=== PATIENT | male | born 1965 | race Caucasian/White ===

== ENCOUNTER 2016-12-13 07:25 | Emergency (ER) | payer OTHER ==
[2016-12-13 07:41] VITALS: BP 160/104
[2016-12-13] MEDS ORDERED: Sodium Chloride 0.9% 10 ML Syringe FLUSH PRN (07:52)
[2016-12-13] MEDS ORDERED: HYDROmorphone 1 MG/ML Syringe IM ONE (07:52)
--- NOTE | 2016-12-13 08:12 | EDM.PDOC ---
ED HPI GENERAL MEDICAL PROBLEM - General Chief Complaint: Abdominal Pain Stated Complaint: LT ABD PAIN Time Seen by Provider: 12/13/16 07:45 Source of Information: Reports: Patient History Limitations: Reports: No limitations - History of Present Illness INITIAL COMMENTS - FREE TEXT/NARRATIVE: 51-year-old male with left-sided upper abdominal pain for the last 2 days after falling. He tripped and fell forward sustaining a bruise to his left upper arm , a scratch across his right forehead but most seriously took a blunt blow to the left upper anterior abdomen by an iron leg of furniture. He now has very intense pain from the left upper abdomen radiating to the left back. There is some pain with breathing but intense spasm cramp-like pain with any movement. He's been taking ibuprofen without much relief. No nausea or vomiting. No fevers or chills. No urinary changes. Duration: Day(s): (2) Location: Reports: abdomen Quality: Reports: Sharp, Stabbing Severity: moderate Worsens with: Reports: Breathing, Movement Context: Reports: Trauma Associated Symptoms: Reports: chest pain. Denies: diaphoresis, fever/chills, headaches, loss of appetite, malaise, nausea/vomiting, shortness of breath Left Upper Abdominal Pain Score (Numeric/FACES): 9 - Related Data Allergies Allergy/AdvReac Type Severity Reaction Status Date / Time No Known Allergies Allergy Verified 12/13/16 07:39 Home Meds: Home Meds Atenolol [Tenormin] 25 mg PO DAILY 05/02/15 [History] Multivitamin with Minerals [Multiple Vitamin] 1 tab PO DAILY 05/02/15 [History] Omeprazole 40 mg PO DAILY 05/02/15 [History] Aspirin [Halfprin] 81 mg PO DAILY 10/11/16 [History] Nitroglycerin 1 tab SL ASDIRECTED 10/11/16 [History] atorvaSTATin [Lipitor] 40 mg PO DAILY 10/11/16 [History] Past Medical History Cardiovascular History: Reports: Other (see below) Other Cardiovascular History: 40% blockage Respiratory History: Reports: Sleep apnea Other Respiratory History: Cpap Gastrointestinal History: Reports: GERD Musculoskeletal History: Reports: Other (see below) Other Musculoskeletal History: DDD Psychiatric History: Reports: Depression - Infectious Disease History Infectious Disease History: Reports: Chicken pox, Mumps - Past Surgical History Other HEENT Surgeries/Procedures: uvulaplasty GI Surgical History: Reports: Bariatric procedure Social & Family History - Tobacco Use Smoking Status *Q: Never Smoker Second Hand Smoke Exposure: No - Caffeine Use Caffeine Use: Reports: Coffee, Soda - Alcohol Use Days Per Week of Alcohol Use: 2 Number of Drinks Per Day: 1 Total Drinks Per Week: 2 - Recreational Drug Use Recreational Drug Use: No ED ROS GENERAL - Review of Systems Review Of Systems: See Below Constitutional: Reports: decreased appetite. Denies: fever, chills, malaise HEENT: Reports: No symptoms Respiratory: Reports: pleuritic chest pain Cardiovascular: Denies: Chest pain, Palpitations GI/Abdominal: Reports: Abdominal pain. Denies: Diarrhea, Nausea, Vomiting : Reports: no symptoms Musculoskeletal: Reports: other (Bruise on his left upper arm) Skin: Reports: other (Superficial scratch on the right forehead) Neurological: Denies: dizziness, headache Psychiatric: Reports: No symptoms ED EXAM, GENERAL - Physical Exam Exam: See Below Exam Limited By: No limitations General Appearance: alert, mild distress Eye Exam: bilateral eye: normal inspection Head: other (Small superficial scratch on the right forehead) Respiratory/Chest: no respiratory distress, lungs clear Cardiovascular: regular rate, rhythm GI/Abdominal: soft, guarding, tender (Intensely painful to palpation in the left upper quadrant, guarding) Neurological: alert, oriented Psychiatric: normal affect, normal mood Skin Exam: Other (Bruise on the left upper arm) Course - Vital Signs Last Recorded V/S: Last Vital Signs Temp 94.6 F L 12/13/16 07:36 Pulse 66 12/13/16 07:36 Resp 18 12/13/16 07:36 BP 160/104 H 12/13/16 07:36 Pulse Ox 97 12/13/16 07:36 - Orders/Labs/Meds Orders: Active Orders 24 hr Category Date Time Status Saline Lock Insert [OM.PC] Routine Oth 12/13/16 07:52 Ordered Labs: Laboratory Tests 12/13/16 12/13/16 Range/Units 07:58 07:58 WBC 7.8 (4.5-11.0) K/uL RBC 5.00 (4.30-5.90) M/uL Hgb 15.4 H (12.0-15.0) g/dL Hct 45.5 (40.0-54.0) % MCV 91 (80-98) fL MCH 31 (27-31) pg MCHC 34 (32-36) % Plt Count 183 (150-400) K/uL Neut % (Auto) 55 (36-66) % Lymph % (Auto) 33 (24-44) % Wells % (Auto) 7 H (2-6) % Eos % (Auto) 4 (2-4) % Baso % (Auto) 1 (0-1) % Sodium 140 (140-148) mmol/L Potassium 3.6 (3.6-5.2) mmol/L Chloride 102 (100-108) mmol/L Carbon Dioxide 27 (21-32) mmol/L Anion Gap 11.4 (5.0-14.0) mmol/L BUN 16 (7-18) mg/dL Creatinine 1.0 (0.8-1.3) mg/dL Est Cr Clr Drug Dosing 97.66 mL/min Estimated GFR (MDRD) > 60 (>60) Glucose 102 (74-106) mg/dL Calcium 8.8 (8.5-10.1) mg/dL Meds: Medications Discontinued Medications Generic Name Dose Route Start Last Admin Trade Name Freq PRN Reason Stop Dose Admin Hydromorphone HCl 1 mg 12/13/16 07:52 12/13/16 08:06 Dilaudid IM 12/13/16 07:53 1 mg ONETIME ONE Administration Sodium Chloride 85 mls @ 3 mls/sec 12/13/16 08:30 12/13/16 08:39 Normal Saline IV 3 mls/sec ASDIRECTED REYNOLD Administration Iopamidol 150 ml 12/13/16 08:28 12/13/16 08:39 Isovue-300 (61%) IV 12/14/16 08:29 150 ml . DIRECTED PRN Administration RADIOLOGY EXAM Sodium Chloride 10 ml 12/13/16 07:52 12/13/16 08:06 Saline Flush FLUSH 10 ml ASDIRECTED PRN Administration Keep Vein Open - Re-Assessments/Exams Free Text/Narrative Re-Assessment/Exam: 12/13/16 08:11 Saline lock was placed, CBC and BMP were obtained. Pending creatinine, and a CT of the upper abdomen is planned. Patient was given 1 mg of Dilaudid IM 12/13/16 08:56 CBC and BMP were normal, hemoglobin is actually mildly elevated and white count was normal. A CT was then obtained of the abdomen and pelvis which showed no evidence of trauma. Patient improved after the Dilaudid and will be discharged with some hydrocodone for pain control and can recheck next week if not improving satisfactorily. Departure - Departure Time of Disposition: :17 Disposition: Home, Self-Care 01 Condition: good Clinical Impression: Contusion of abdominal wall, initial encounter Qualifiers: Encounter type: initial encounter Qualified Code(s): S30.1XXA - Contusion of abdominal wall, initial encounter Instructions: Contusion, [id number], Blunt Abdominal Trauma Referrals: Jennifer De Leon MD [Primary Care Provider] - Forms: ED Department Discharge Care Plan Goals: Increase activity as tolerated. Use pain medications as prescribed. Return any time if worsening or concerns, or consider rechecking next week if not improving satisfactorily. - My Orders Last 24 Hours: My Active Orders 12/13/16 07:52 Saline Lock Insert [OM.PC] Routine - Assessment/Plan Last 24 Hours: My Active Orders 12/13/16 07:52 Saline Lock Insert [OM.PC] Routine
[2016-12-13] MEDS ORDERED: Iopamidol 612 MG/ML 150 ML Bottle IV PRN (08:28)
--- NOTE | 2016-12-13 08:54 | CT ---
Abdomen pelvis CT. History: Abdominal trauma. Left upper quadrant pain. Technique: IV contrast was administered followed by axial imaging from the lung bases extending thro ugh the abdomen and pelvis. Coronal images were reconstructed. Total DLP: 1165. Findings: Limited evaluation of the lower lung granados demonstrate no abnormalities. The visualized r ibs are intact. There is mild fatty infiltration throughout the liver. The gallbladder is surgically absent. There a re postoperative findings consistent with a Arlen-en-Y gastric bypass. No complications are evident. There is no free air or free fluid. There is no large or small bowel distention. Impression: 1. No acute posttraumatic findings.
== END 2016-12-13 09:10 | disposition home or self-care (01) ==
LOC: JP.ED 07:25
DX: S30.1XXA Contusion of abdominal wall, initial encounter (principal); S40.022A Contusion of left upper arm, initial encounter; K21.9 Gastro-esophageal reflux disease without esophagitis; F32.9 Major depressive disorder, single episode, unspecified; Z79.82 Long term (current) use of aspirin; Z79.899 Other long term (current) drug therapy; Z98.84 Bariatric surgery status; W18.09XA Striking against other object with subsequent fall, initial encounter
CPT/HCPCS: 36415; 74177; 80048; 85025; 96372; 99284; J1170; J7030; J7050

== ENCOUNTER 2017-01-17 21:02 | Emergency (ER) | payer OTHER ==
--- NOTE | 2017-01-17 22:47 | EDM.PDOC ---
[id number] 4d eval Time Seen by Provider: 01/17/17 21:16 Source: Reports: Patient Exam Limitations: Reports: No limitations - History of Present Illness INITIAL COMMENTS - FREE TEXT/NARRATIVE: History of present illness: [51-year-old male presents complaining of depression in some suicidal ideation. He was very tearful and distraught and in the process of initiating any conversation with him he mentions his brother that he had been talking to. I then suggested that I talked to his brother which I did over the phone for about 20 minutes. This was very helpful and based on my conversation with his brother I believe that he is a candidate for a 72 hour hold. He is feeling helpless and hopeless and depressed and does have firearms in his home. According to his brother his has undiagnosed paranoid schizophrenia which stresses their relationship. He has had no prior suicidal attempts but his brother is very concerned that he may "do something stupid" given how depressed she is feeling at the current time. His is accusing him of being an alcoholic and drug and I believe threatening to leave him because of this. He has never been through treatment before. The patient's brother is not sure about the alcohol and with an that's an issue for his brother but he definitely feels that the stressor that is causing the most trouble in his brothers her life right now is his with her paranoid thinking and in his words paranoid schizophrenia.] Review of systems: As per history of present illness and below otherwise all systems reviewed and negative. Past medical history: As per history of present illness and as reviewed below otherwise noncontributory. Surgical history: As per history of present illness and as reviewed below otherwise noncontributory. Social history: No reported history of drug or alcohol abuse. Family history: As per history of present illness and as reviewed below otherwise noncontributory. Physical exam: HEENT: Atraumatic, normocephalic, pupils reactive, negative for conjunctival pallor or scleral icterus, mucous membranes moist, throat clear, neck supple, nontender, trachea midline. Lungs: Clear to auscultation, breath sounds equal bilaterally, chest nontender. Heart: S1S2, regular, negative for clicks, rubs, or JVD. Abdomen: Soft, nondistended, nontender. Negative for masses or hepatosplenomegaly. Negative for costovertebral tenderness. He is overweight Pelvis: Stable nontender. Genitourinary: Deferred. Rectal: Deferred. Extremities: Atraumatic, negative for cords or calf pain. Neurovascular unremarkable. Neuro: Awake, alert, oriented. Cranial nerves II through XII unremarkable. Cerebellum unremarkable. Motor and sensory unremarkable throughout. Exam nonfocal. Diagnostics: [CBC complete metabolic panel UA and urine drug screen and serum alcohol were done initial alcohol was 337 but it's been coming down.] Therapeutics: [] Impression: [Based on my assessment and discussion with this gentleman his brother I believe he is at higher risk for suicide attempt he in spite of his denial of being suicidal] Plan: [We've made arrangements for him to be transferred to the [facility] in [place] Dr. Ring acccepting. ] Definitive disposition and diagnosis as appropriate pending reevaluation and review of above. - Related Data Allergies Allergy/AdvReac Type Severity Reaction Status Date / Time No Known Allergies Allergy Verified 01/17/17 21:50 Home Medications: Home Meds Atenolol [Tenormin] 25 mg PO DAILY 05/02/15 [History] Multivitamin with Minerals [Multiple Vitamin] 1 tab PO DAILY 05/02/15 [History] Omeprazole 40 mg PO DAILY 05/02/15 [History] Aspirin [Halfprin] 81 mg PO DAILY 10/11/16 [History] Nitroglycerin 1 tab SL ASDIRECTED 10/11/16 [History] atorvaSTATin [Lipitor] 40 mg PO DAILY 10/11/16 [History] denies pain Pain Score (Numeric/FACES): 0 Past Medical History HEENT History: Reports: Impaired vision Cardiovascular History: Reports: Other (see below) Other Cardiovascular History: 40% blockage Respiratory History: Reports: Sleep apnea Other Respiratory History: Cpap Gastrointestinal History: Reports: GERD Musculoskeletal History: Reports: Other (see below) Other Musculoskeletal History: DDD Psychiatric History: Reports: Depression - Infectious Disease History Infectious Disease History: Reports: Chicken pox - Past Surgical History HEENT Surgical History: Reports: Other (see below) Other HEENT Surgeries/Procedures: uvulaplasty GI Surgical History: Reports: Bariatric procedure Social & Family History - Tobacco Use Smoking Status *Q: Never Smoker Second Hand Smoke Exposure: No - Caffeine Use Caffeine Use: Reports: Coffee - Alcohol Use Days Per Week of Alcohol Use: 3 Number of Drinks Per Day: 1 Total Drinks Per Week: 3 Date of Last Drink: 01/17/17 Time of Last Drink: 18:00 - Recreational Drug Use Recreational Drug Use: No ED ROS GENERAL - Review of Systems Review Of Systems: ROS reveals no pertinent complaints other than HPI. ED EXAM, BEHAVIORAL HEALTH - Physical Exam Exam: See Below COURSE, BEHAVIORAL HEALTH COMP - Course Vital Signs: Last Vital Signs Temp 37.4 C 01/17/17 21:23 Pulse 92 01/17/17 22:20 Resp 20 01/17/17 22:20 BP 151/98 H 01/17/17 22:20 Pulse Ox 93 L 01/17/17 22:20 Orders, Labs, Meds: Laboratory Tests 01/17/17 01/17/17 01/17/17 Range/Units 21:46 21:46 21:47 WBC 6.6 (4.5-11.0) K/uL RBC 4.87 (4.30-5.90) M/uL Hgb 14.8 (12.0-15.0) g/dL Hct 43.8 (40.0-54.0) % MCV 90 (80-98) fL MCH 30 (27-31) pg MCHC 34 (32-36) % Plt Count 165 (150-400) K/uL Neut % (Auto) 49 (36-66) % Lymph % (Auto) 43 (24-44) % Villalba % (Auto) 7 H (2-6) % Eos % (Auto) 0 L (2-4) % Baso % (Auto) 1 (0-1) % Sodium 149 H (140-148) mmol/L Potassium 3.9 (3.6-5.2) mmol/L Chloride 110 H (100-108) mmol/L Carbon Dioxide 25 (21-32) mmol/L Anion Gap 17.9 H (5.0-14.0) mmol/L BUN 20 H (7-18) mg/dL Creatinine 1.0 (0.8-1.3) mg/dL Est Cr Clr Drug Dosing 97.19 mL/min Estimated GFR (MDRD) > 60 (>60) Glucose 132 H (74-106) mg/dL Calcium 7.8 L (8.5-10.1) mg/dL Total Bilirubin 0.3 D (0.2-1.0) mg/dL AST 55 H (15-37) U/L ALT 71 (12-78) U/L Alkaline Phosphatase 80 (46-116) U/L Total Protein 7.6 (6.4-8.2) g/dL Albumin 3.9 (3.4-5.0) g/dL Globulin 3.7 H (2.3-3.5) g/dL Albumin/Globulin Ratio 1.1 L (1.2-2.2) TSH, Ultra Sensitive 1.117 (0.358-3.740) uIU/mL Urine Color Urine Appearance Urine pH (4.5-8.0) Ur Specific [place] (1.008-1.030) Urine Protein (NEGATIVE) mg/dL Urine Glucose (UA) (NEGATIVE) mg/dL Urine Ketones (NEGATIVE) mg/dL Urine Occult Blood (NEGATIVE) Urine Nitrite (NEGAITVE) Urine Bilirubin (NEGATIVE) Urine Urobilinogen (NORMAL) mg/dL Ur Leukocyte Esterase (NEGATIVE) Urine RBC (0-5) Urine WBC (0-5) Ur Epithelial Cells Amorphous Sediment Urine Bacteria Urine Mucus Salicylates (2.0-20.0) mg/dL Urine Opiates Screen (NEGATIVE) Ur Oxycodone Screen (NEGATIVE) Urine Methadone Screen (NEGATIVE) Ur Propoxyphene Screen (NEGATIVE) Acetaminophen 0.0 L (10.0-30.0) ug/mL Ur Barbiturates Screen (NEGATIVE) Ur Tricyclics Screen (NEGATIVE) Ur Phencyclidine Scrn (NEGATIVE) Ur Amphetamine Screen (NEGATIVE) U Methamphetamines Scrn (NEGATIVE) Urine MDMA Screen (NEGATIVE) U Benzodiazepines Scrn (NEGATIVE) U Cocaine Metab Screen (NEGATIVE) U Marijuana (THC) Screen (NEGATIVE) Ethyl Alcohol mg/dL 01/17/17 01/17/17 01/17/17 Range/Units 21:47 21:47 22:24 WBC (4.5-11.0) K/uL RBC (4.30-5.90) M/uL Hgb (12.0-15.0) g/dL Hct (40.0-54.0) % MCV (80-98) fL MCH (27-31) pg MCHC (32-36) % Plt Count (150-400) K/uL Neut % (Auto) (36-66) % Lymph % (Auto) (24-44) % Villalba % (Auto) (2-6) % Eos % (Auto) (2-4) % Baso % (Auto) (0-1) % Sodium (140-148) mmol/L Potassium (3.6-5.2) mmol/L Chloride (100-108) mmol/L Carbon Dioxide (21-32) mmol/L Anion Gap (5.0-14.0) mmol/L BUN (7-18) mg/dL Creatinine (0.8-1.3) mg/dL Est Cr Clr Drug Dosing mL/min Estimated GFR (MDRD) (>60) Glucose (74-106) mg/dL Calcium (8.5-10.1) mg/dL Total Bilirubin (0.2-1.0) mg/dL AST (15-37) U/L ALT (12-78) U/L Alkaline Phosphatase (46-116) U/L Total Protein (6.4-8.2) g/dL Albumin (3.4-5.0) g/dL Globulin (2.3-3.5) g/dL Albumin/Globulin Ratio (1.2-2.2) TSH, Ultra Sensitive (0.358-3.740) uIU/mL Urine Color Yellow Urine Appearance Clear Urine pH 5.0 (4.5-8.0) Ur Specific [place] 1.025 (1.008-1.030) Urine Protein Negative (NEGATIVE) mg/dL Urine Glucose (UA) Normal (NEGATIVE) mg/dL Urine Ketones Negative (NEGATIVE) mg/dL Urine Occult Blood Negative (NEGATIVE) Urine Nitrite Negative (NEGAITVE) Urine Bilirubin Negative (NEGATIVE) Urine Urobilinogen Normal (NORMAL) mg/dL Ur Leukocyte Esterase Negative (NEGATIVE) Urine RBC 0-5 (0-5) Urine WBC 0-5 (0-5) Ur Epithelial Cells Few Amorphous Sediment Not seen Urine Bacteria Few Urine Mucus Few Salicylates 0.9 L (2.0-20.0) mg/dL Urine Opiates Screen (NEGATIVE) Ur Oxycodone Screen (NEGATIVE) Urine Methadone Screen (NEGATIVE) Ur Propoxyphene Screen (NEGATIVE) Acetaminophen (10.0-30.0) ug/mL Ur Barbiturates Screen (NEGATIVE) Ur Tricyclics Screen (NEGATIVE) Ur Phencyclidine Scrn (NEGATIVE) Ur Amphetamine Screen (NEGATIVE) U Methamphetamines Scrn (NEGATIVE) Urine MDMA Screen (NEGATIVE) U Benzodiazepines Scrn (NEGATIVE) U Cocaine Metab Screen (NEGATIVE) U Marijuana (THC) Screen (NEGATIVE) Ethyl Alcohol 337 mg/dL 01/17/17 01/18/17 Range/Units 22:24 01:00 WBC (4.5-11.0) K/uL RBC (4.30-5.90) M/uL Hgb (12.0-15.0) g/dL Hct (40.0-54.0) % MCV (80-98) fL MCH (27-31) pg MCHC (32-36) % Plt Count (150-400) K/uL Neut % (Auto) (36-66) % Lymph % (Auto) (24-44) % Villalba % (Auto) (2-6) % Eos % (Auto) (2-4) % Baso % (Auto) (0-1) % Sodium (140-148) mmol/L Potassium (3.6-5.2) mmol/L Chloride (100-108) mmol/L Carbon Dioxide (21-32) mmol/L Anion Gap (5.0-14.0) mmol/L BUN (7-18) mg/dL Creatinine (0.8-1.3) mg/dL Est Cr Clr Drug Dosing mL/min Estimated GFR (MDRD) (>60) Glucose (74-106) mg/dL Calcium (8.5-10.1) mg/dL Total Bilirubin (0.2-1.0) mg/dL AST (15-37) U/L ALT (12-78) U/L Alkaline Phosphatase (46-116) U/L Total Protein (6.4-8.2) g/dL Albumin (3.4-5.0) g/dL Globulin (2.3-3.5) g/dL Albumin/Globulin Ratio (1.2-2.2) TSH, Ultra Sensitive (0.358-3.740) uIU/mL Urine Color Urine Appearance Urine pH (4.5-8.0) Ur Specific [place] (1.008-1.030) Urine Protein (NEGATIVE) mg/dL Urine Glucose (UA) (NEGATIVE) mg/dL Urine Ketones (NEGATIVE) mg/dL Urine Occult Blood (NEGATIVE) Urine Nitrite (NEGAITVE) Urine Bilirubin (NEGATIVE) Urine Urobilinogen (NORMAL) mg/dL Ur Leukocyte Esterase (NEGATIVE) Urine RBC (0-5) Urine WBC (0-5) Ur Epithelial Cells Amorphous Sediment Urine Bacteria Urine Mucus Salicylates (2.0-20.0) mg/dL Urine Opiates Screen Negative (NEGATIVE) Ur Oxycodone Screen Negative (NEGATIVE) Urine Methadone Screen Negative (NEGATIVE) Ur Propoxyphene Screen Negative (NEGATIVE) Acetaminophen (10.0-30.0) ug/mL Ur Barbiturates Screen Negative (NEGATIVE) Ur Tricyclics Screen Negative (NEGATIVE) Ur Phencyclidine Scrn Negative (NEGATIVE) Ur Amphetamine Screen Negative (NEGATIVE) U Methamphetamines Scrn Negative (NEGATIVE) Urine MDMA Screen Negative (NEGATIVE) U Benzodiazepines Scrn Negative (NEGATIVE) U Cocaine Metab Screen Negative (NEGATIVE) U Marijuana (THC) Screen Negative (NEGATIVE) Ethyl Alcohol 243 mg/dL Medications Discontinued Medications Generic Name Dose Route Start Last Admin Trade Name Freq PRN Reason Stop Dose Admin Alprazolam 0.5 mg 01/18/17 03:03 Xanax PO 01/18/17 03:04 NOW ONE Departure - Departure Time of Disposition: 03:16 Disposition: DC/[facility] to [facility] Clinical Impression: Depressive disorder, Alcohol abuse Forms: ED Department Discharge
[2017-01-18] MEDS ORDERED: ALPRAZolam 0.5 MG Tab PO ONE (03:03)
[2017-01-18 05:08] VITALS: BP 141/86
== END 2017-01-18 04:58 ==
LOC: JP.ED 21:02
DX: F32.9 Major depressive disorder, single episode, unspecified (principal); F10.10 Alcohol abuse, uncomplicated; K21.9 Gastro-esophageal reflux disease without esophagitis; Z79.82 Long term (current) use of aspirin; Z79.899 Other long term (current) drug therapy; Z98.890 Other specified postprocedural states; Y90.8 Blood alcohol level of 240 mg/100 ml or more
CPT/HCPCS: 36415; 80053; 80305; 81001; 84443; 85025; 99284; A9270; G0480

== ENCOUNTER 2017-11-12 09:00 | Emergency (ER) | payer MEDICAID, OTHER ==
[2017-11-12] MEDS ORDERED: Aspirin 81 MG Tab.Chew PO ONE (09:11)
[2017-11-12] MEDS: Nitroglycerin 0.4 MG Tab.SL SL PRN ×4 (09:20→10:23)
--- NOTE | 2017-11-12 09:48 | EDM.PDOC ---
ED HPI GENERAL MEDICAL PROBLEM - General Chief Complaint: Chest Pain Stated Complaint: CHEST PAIN/SOB Time Seen by Provider: 11/12/17 09:48 Source of Information: Reports: Patient History Limitations: Reports: No Limitations - History of Present Illness INITIAL COMMENTS - FREE TEXT/NARRATIVE: Pt woke up this am with no pain and then he developed left sided chest pain and pain in the left shoulder and left side of his neck. he did not get sweaty and he did not vomit. Onset: Today, Sudden, Other ( started about 7 am) Duration: Hour(s):, Other (pain has been persistent. ) Location: Reports: Chest Associated Symptoms: Reports: Chest Pain, Shortness of Breath Left Chest Pain Score (Numeric/FACES): 2 - Related Data Allergies Allergy/AdvReac Type Severity Reaction Status Date / Time No Known Allergies Allergy Verified 11/12/17 09:14 Home Meds: Home Meds Atenolol [Tenormin] 25 mg PO DAILY 05/02/15 [History] Multivitamin with Minerals [Multiple Vitamin] 1 tab PO DAILY 05/02/15 [History] Omeprazole 40 mg PO DAILY PRN 05/02/15 [History] Aspirin [Halfprin] 81 mg PO DAILY 10/11/16 [History] Nitroglycerin 1 tab SL ASDIRECTED 10/11/16 [History] atorvaSTATin [Lipitor] 40 mg PO DAILY 10/11/16 [History] Sertraline [Zoloft] 50 mg PO BEDTIME 01/18/17 [History] Past Medical History HEENT History: Reports: Impaired Vision Cardiovascular History: Reports: CAD, High Cholesterol, Hypertension Other Cardiovascular History: 40% blockage per angio gram Respiratory History: Reports: Sleep Apnea Other Respiratory History: c-pap Gastrointestinal History: Reports: Cholelithiasis Musculoskeletal History: Reports: Arthritis Other Musculoskeletal History: DDD Psychiatric History: Reports: Depression Hematologic History: Reports: Anemia, Iron Deficiency - Infectious Disease History Infectious Disease History: Reports: Chicken Pox, Mumps - Past Surgical History HEENT Surgical History: Reports: Tonsillectomy Cardiovascular Surgical History: Reports: Percutaneous Transluminal Angioplasty GI Surgical History: Reports: Appendectomy, Bariatric Procedure, Cholecystectomy , Hernia Repair/Other Other GI Surgeries/Procedures: 2008 rny Musculoskeletal Surgical History: Reports: Shoulder Surgery Social & Family History - Tobacco Use Smoking Status *Q: Never Smoker Second Hand Smoke Exposure: No - Caffeine Use Caffeine Use: Reports: Coffee - Alcohol Use Days Per Week of Alcohol Use: 3 Number of Drinks Per Day: 1 Total Drinks Per Week: 3 - Recreational Drug Use Recreational Drug Use: No ED ROS GENERAL - Review of Systems Review Of Systems: See Below Constitutional: Reports: No Symptoms HEENT: Reports: No Symptoms Respiratory: Reports: Shortness of Breath, Other ( during the pain) Cardiovascular: Reports: Chest Pain, Dyspnea on Exertion, Other (pt developed the chest pain at about 7 am. ) GI/Abdominal: Reports: No Symptoms, Other ( slight nausea. ) : Reports: No Symptoms Musculoskeletal: Reports: No Symptoms Skin: Reports: No Symptoms Neurological: Reports: No Symptoms Psychiatric: Reports: Anxiety ED EXAM, GENERAL - Physical Exam Exam: See Below Free Text/Narrative:: pt arrived with left sided chest pain and pain in left shoulder and left side of the neck. He was given 3 nitros and scott had relief. This brought his pain down to a 2. This lasted for about 15 minutes and his pain began to increase. Exam Limited By: No Limitations General Appearance: Alert, Anxious, Moderate Distress Ears: Normal TMs Nose: Normal Inspection Throat/Mouth: Normal Inspection Head: Atraumatic Neck: Normal Inspection Respiratory/Chest: No Respiratory Distress Cardiovascular: Regular Rate, Rhythm GI/Abdominal: Soft, Non-Tender (Male) Exam: Deferred Rectal (Males) Exam: Deferred Back Exam: Normal Inspection Extremities: Normal Inspection Neurological: Alert, Oriented, Normal Cognition Psychiatric: Normal Affect Skin Exam: Warm Course - Vital Signs Last Recorded V/S: Last Vital Signs Temp 35.3 C 11/12/17 09:12 Pulse 55 L 11/12/17 10:21 Resp 18 11/12/17 10:21 BP 107/67 11/12/17 10:23 Pulse Ox 96 11/12/17 10:21 - Orders/Labs/Meds Orders: Active Orders 24 hr Category Date Time Status EKG Documentation Completion [RC] ASDIRECTED Care 11/12/17 09:10 Active PTT,PARTIAL THROMBOPLSTIN TIME [COAG] Stat Lab 11/12/17 10:26 Ordered Sodium Chloride 0.9% [Normal Saline] 1,000 ml Med 11/12/17 10:15 Ordered IV ASDIRECTED EKG 12 Lead [EK] Routine Ther 11/12/17 09:10 Ordered Medication Orders Sodium Chloride (Normal Saline) 1,000 mls @ 500 mls/hr IV ASDIRECTED REYNOLD Last Admin: 11/12/17 10:21 Dose: 500 mls/hr Labs: Laboratory Tests 11/12/17 11/12/17 11/12/17 Range/Units 09:14 09:14 09:14 WBC 5.8 (4.5-11.0) K/uL RBC 4.99 (4.30-5.90) M/uL Hgb 15.0 (12.0-15.0) g/dL Hct 43.5 (40.0-54.0) % MCV 87 (80-98) fL MCH 30 (27-31) pg MCHC 35 (32-36) % Plt Count 228 (150-400) K/uL Neut % (Auto) 41 (36-66) % Lymph % (Auto) 43 (24-44) % [place] % (Auto) 9 H (2-6) % Eos % (Auto) 7 H (2-4) % Baso % (Auto) 1 (0-1) % Sodium 141 (140-148) mmol/L Potassium 3.9 (3.6-5.2) mmol/L Chloride 104 (100-108) mmol/L Carbon Dioxide 29 (21-32) mmol/L Anion Gap 7.9 (5.0-14.0) mmol/L BUN 17 (7-18) mg/dL Creatinine 1.1 (0.8-1.3) mg/dL Est Cr Clr Drug Dosing 87.77 mL/min Estimated GFR (MDRD) > 60 (>60) Glucose 104 (74-106) mg/dL Calcium 9.0 D (8.5-10.1) mg/dL Total Bilirubin 0.7 D (0.2-1.0) mg/dL AST 34 (15-37) U/L ALT 43 (12-78) U/L Alkaline Phosphatase 71 (46-116) U/L Creatine Kinase 226 (39-308) U/L Troponin I < 0.017 (0.000-0.056) ng/mL Total Protein 7.0 (6.4-8.2) g/dL Albumin 3.9 (3.4-5.0) g/dL Globulin 3.1 (2.3-3.5) g/dL Albumin/Globulin Ratio 1.3 (1.2-2.2) Urine Color Urine Appearance Urine pH (4.5-8.0) Ur Specific [place] (1.008-1.030) Urine Protein (NEGATIVE) mg/dL Urine Glucose (UA) (NEGATIVE) mg/dL Urine Ketones (NEGATIVE) mg/dL Urine Occult Blood (NEGATIVE) Urine Nitrite (NEGAITVE) Urine Bilirubin (NEGATIVE) Urine Urobilinogen (NORMAL) mg/dL Ur Leukocyte Esterase (NEGATIVE) Urine RBC (0-5) Urine WBC (0-5) Ur Epithelial Cells Amorphous Sediment Urine Bacteria Urine Mucus 11/12/17 Range/Units 09:45 WBC (4.5-11.0) K/uL RBC (4.30-5.90) M/uL Hgb (12.0-15.0) g/dL Hct (40.0-54.0) % MCV (80-98) fL MCH (27-31) pg MCHC (32-36) % Plt Count (150-400) K/uL Neut % (Auto) (36-66) % Lymph % (Auto) (24-44) % [place] % (Auto) (2-6) % Eos % (Auto) (2-4) % Baso % (Auto) (0-1) % Sodium (140-148) mmol/L Potassium (3.6-5.2) mmol/L Chloride (100-108) mmol/L Carbon Dioxide (21-32) mmol/L Anion Gap (5.0-14.0) mmol/L BUN (7-18) mg/dL Creatinine (0.8-1.3) mg/dL Est Cr Clr Drug Dosing mL/min Estimated GFR (MDRD) (>60) Glucose (74-106) mg/dL Calcium (8.5-10.1) mg/dL Total Bilirubin (0.2-1.0) mg/dL AST (15-37) U/L ALT (12-78) U/L Alkaline Phosphatase (46-116) U/L Creatine Kinase (39-308) U/L Troponin I (0.000-0.056) ng/mL Total Protein (6.4-8.2) g/dL Albumin (3.4-5.0) g/dL Globulin (2.3-3.5) g/dL Albumin/Globulin Ratio (1.2-2.2) Urine Color Yellow Urine Appearance Clear Urine pH 5.0 (4.5-8.0) Ur Specific [place] 1.015 (1.008-1.030) Urine Protein Negative (NEGATIVE) mg/dL Urine Glucose (UA) Normal (NEGATIVE) mg/dL Urine Ketones Negative (NEGATIVE) mg/dL Urine Occult Blood Negative (NEGATIVE) Urine Nitrite Negative (NEGAITVE) Urine Bilirubin Negative (NEGATIVE) Urine Urobilinogen Normal (NORMAL) mg/dL Ur Leukocyte Esterase Negative (NEGATIVE) Urine RBC 0-5 (0-5) Urine WBC 0-5 (0-5) Ur Epithelial Cells Rare Amorphous Sediment Not seen Urine Bacteria Not seen Urine Mucus Rare Meds: Medications Generic Name Dose Route Start Last Admin Trade Name Freq PRN Reason Stop Dose Admin Sodium Chloride 1,000 mls @ 500 mls/hr 11/12/17 10:15 11/12/17 10:21 Normal Saline IV 500 mls/hr ASDIRECTED REYNOLD Administration Discontinued Medications Generic Name Dose Route Start Last Admin Trade Name Freq PRN Reason Stop Dose Admin Aspirin 324 mg 11/12/17 09:11 11/12/17 09:23 Aspirin PO 11/12/17 09:12 324 mg ONETIME ONE Administration Clopidogrel Bisulfate 600 mg 11/12/17 10:08 Plavix PO 11/12/17 10:09 ONETIME ONE Heparin Sodium (Porcine) 4,000 units 11/12/17 10:26 Heparin Sodium IVPUSH 11/12/17 10:27 ONETIME ONE Nitroglycerin/Dextrose 25 mg in 250 mls @ 6 mls/hr 11/12/17 10:15 Nitroglycerin 25 Mg/D5w 250 Ml IV TITRATE [facility] Protocol 10 MCG/MIN Lorazepam 0.5 mg 11/12/17 10:27 Ativan IVPUSH 11/12/17 10:28 ONETIME ONE Morphine Sulfate 2 mg 11/12/17 10:25 Morphine IVPUSH 11/12/17 10:26 ONETIME ONE Nitroglycerin 0.4 mg 11/12/17 09:12 11/12/17 10:23 Nitrostat SL 0.4 mg Q5M PRN Administration Chest Pain Nitroglycerin 0.4 mg 11/12/17 10:25 Nitrostat SL 11/12/17 10:26 ONETIME ONE - Re-Assessments/Exams Free Text/Narrative Re-Assessment/Exam: 11/12/17 10:33 pt was found to have a rt bundle branch block which is old. He had normal cardiac enzymes, his chest xray looks good. He had pain which was relieved with 3 nitros. He was given asa, nitro, morphine 2mg and ativan. He had a 400 unit bolus of heparin. Departure - Departure Time of Disposition: 10:35 Disposition: DC/Tfer to Acute Hospital 02 Reason for Transfer *Q: Primary PCI Indicated Condition: Fair Clinical Impression: Angina at rest Referrals: Glenn Enrique MD [Primary Care Provider] - Forms: ED Department Discharge Care Plan Goals: transfer to . - My Orders Last 24 Hours: My Active Orders 11/12/17 09:10 EKG Documentation Completion [RC] ASDIRECTED EKG 12 Lead [EK] Routine 11/12/17 10:15 Sodium Chloride 0.9% [Normal Saline] 1,000 ml IV ASDIRECTED 11/12/17 10:26 PTT,PARTIAL THROMBOPLSTIN TIME [COAG] Stat - Assessment/Plan Last 24 Hours: My Active Orders 11/12/17 09:10 EKG Documentation Completion [RC] ASDIRECTED EKG 12 Lead [EK] Routine 11/12/17 10:15 Sodium Chloride 0.9% [Normal Saline] 1,000 ml IV ASDIRECTED 11/12/17 10:26 PTT,PARTIAL THROMBOPLSTIN TIME [COAG] Stat
--- NOTE | 2017-11-12 09:49 | CR ---
Mild cardiomegaly similar. Right midlung zone pulmonary nodule is stable compared to 05/02/2015. Pulmo nary vasculature within normal limits. No focal consolidation.
[2017-11-12] MEDS ORDERED: Clopidogrel 75 MG Tab PO ONE (10:08)
[2017-11-12] MEDS ORDERED: Nitroglycerin/D5W 25 MG/250 ML BOTTLE IV SCH (10:15)
[2017-11-12] MEDS ORDERED: Sodium Chloride 0.9% 1,000 ML IV SCH (10:15)
[2017-11-12] MEDS ORDERED: Nitroglycerin 0.4 MG Tab.SL SL ONE (10:25)
[2017-11-12] MEDS ORDERED: Morphine 2 MG/ML Syringe IVPUSH ONE (10:25)
[2017-11-12] MEDS ORDERED: Heparin Sodium 5,000 Units/ML Vial IVPUSH ONE (10:26)
[2017-11-12] MEDS ORDERED: LORazepam 2 MG/ML MDV IVPUSH ONE (10:27)
[2017-11-12 10:46] VITALS: BP 117/70
== END 2017-11-12 11:11 ==
LOC: JP.ED 09:00
DX: I25.119 Atherosclerotic heart disease of native coronary artery with unspecified angina pectoris (principal); Z79.82 Long term (current) use of aspirin; Z79.899 Other long term (current) drug therapy; I10 Essential (primary) hypertension; I25.10 Atherosclerotic heart disease of native coronary artery without angina pectoris; E78.00 Pure hypercholesterolemia, unspecified; Z95.5 Presence of coronary angioplasty implant and graft
CPT/HCPCS: 36415; 71045; 71045-26; 80053; 81001; 82550; 84484; 85025; 85730; 93005; 96361; 96374; 96375; 99285-25; A9270-GY; J1644; J2060; J2270; J7040

== ENCOUNTER 2017-11-16 08:59 | Emergency (ER) | payer SELFPAY ==
[2017-11-16] MEDS ORDERED: Cyclobenzaprine 10 MG Tab PO ONE (09:44)
[2017-11-16] MEDS ORDERED: Ketorolac 60 MG/2 ML SDV IM ONE (09:44)
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
[2017-11-16] MEDS ORDERED: HYDROmorphone 0.5 MG/0.5 ML Syringe IM ONE (10:46)
[2017-11-16] MEDS ORDERED: HYDROmorphone 1 MG/ML Syringe IM ONE (11:09)
[2017-11-16 11:21] VITALS: BP 135/89
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
== END 2017-11-16 11:44 | disposition home or self-care (01) ==
LOC: JP.ED 08:59
DX: M62.838 Other muscle spasm (principal); M51.36 Other intervertebral disc degeneration, lumbar region; I10 Essential (primary) hypertension; E78.00 Pure hypercholesterolemia, unspecified; I25.10 Atherosclerotic heart disease of native coronary artery without angina pectoris; Z79.82 Long term (current) use of aspirin; V47.9XXA Unspecified car occupant injured in collision with fixed or stationary object in traffic accident, initial encounter
CPT/HCPCS: 36415; 72050; 72110; 80053; 81001; 85025; 96372; 99284; A9270; J1170; J1885; 99283

== ENCOUNTER 2017-11-25 09:20 | Day surgery (SDC) | payer MEDICAID ==
[2017-11-25] MEDS ORDERED: Glycopyrrolate 0.2 MG/ML 2 ML SYRINGE IVPUSH ONE (09:30)
[2017-11-25] MEDS ORDERED: Dextrose 5%-Lactated Ringers 1,000 ML IV SCH (09:30)
[2017-11-25] MEDS ORDERED: Propofol 200 MG/20 ML SDV ONE (10:52)
[2017-11-25] MEDS ORDERED: fentaNYL 100 MCG/2 ML SDV ONE (10:52)
[2017-11-25] MEDS ORDERED: Midazolam 1 MG/ML 2 ML SDV ONE (10:52)
[2017-11-25 13:22] VITALS: BP 150/89
--- NOTE | 2017-12-02 10:09 | OR ---
DATE OF PROCEDURE: 11/25/2017 PREOPERATIVE DIAGNOSIS: Epigastric pain associated with weight loss, status post Arlen-en-Y gastric bypass. POSTOPERATIVE DIAGNOSIS: Status post Arlen-en-Y gastric bypass with: 1. Marginal ulcer x2. 2. Very large gastric pouch (11 cm). 3. Very large gastrojejunostomy (45 cm). OPERATIVE PROCEDURES: Upper GI endoscopy with biopsies of gastric pouch for CLOtest. ANESTHESIA: IV sedation. INDICATION FOR PROCEDURE: This is a 52-year-old status post Arlen-en-Y gastric bypass in 2008. At that point, he weighed 400 pounds and then did get down to 220 pounds, but now has had recent significant weight regain, up to a weight of 294 pounds. He presents now, in addition to the weight regain with upper abdominal pain, to undergo an upper GI endoscopy. He presently has not been on any antisecretory medication. Potential risks including bleeding and perforation were discussed, and the patient wishes to proceed. DETAILS OF PROCEDURE: The patient was taken to the operating room and placed in a left lateral decubitus position. IV sedation was administered, after which the upper GI endoscope was passed orally through the length of the esophagus and into the gastric pouch and from there through the gastrojejunostomy roughly 20 cm into the Arlen limb. Findings included normal hypopharynx, larynx, upper esophageal sphincter, and esophageal body. At the EG junction, there was no significant inflammation. There was, however, a very large gastric pouch that measured around 11 cm and a very large gastrojejunostomy. This was associated with 2 marginal ulcers, felt likely related to the large gastric pouch. Beyond the marginal ulcer, the remaining portion of the visualized Arlen limb was unremarkable. At this point, biopsies were obtained from the gastric pouch and sent for CLOtest for H. pylori. Minimal bleeding from the biopsy sites was seen, and the procedure then concluded. The patient was taken to the recovery room in a satisfactory condition. Breezy Alexander MD /[id number]
== END 2017-11-25 13:20 | disposition home or self-care (01) ==
LOC: JP.SDS 09:20
PROVIDERS: ATTEND Surgery
DX: K25.9 Gastric ulcer, unspecified as acute or chronic, without hemorrhage or perforation (principal); I10 Essential (primary) hypertension; K21.9 Gastro-esophageal reflux disease without esophagitis; Z98.84 Bariatric surgery status
CPT/HCPCS: 43239; 87081; J2250; J2704; J3010; J7042

== ENCOUNTER 2018-01-10 08:17 | Inpatient (IN) | payer MEDICAID ==
[~2018-01-10 08:17] MED LIST: cefOXitin 2 GM Vial ONE
[2018-01-10] MEDS ORDERED: Acetaminophen 500 MG Tab PO ONE (08:45)
[2018-01-10] MEDS ORDERED: Scopolamine 1.5 MG Transdermal Patch TOP SCH (08:45)
[2018-01-10] MEDS ORDERED: Celecoxib 200 MG Cap PO ONE (08:45)
[2018-01-10] MEDS ORDERED: Dextrose 5%-Lactated Ringers 1,000 ML IV SCH ×2 (09:00→17:30)
[2018-01-10] MEDS ORDERED: Glycopyrrolate 0.2 MG/ML 5 ML MDV ONE (09:24)
[2018-01-10] MEDS ORDERED: Ondansetron 4 MG/2 ML SDV ONE (09:24)
[2018-01-10] MEDS ORDERED: Rocuronium 50 MG/5 ML Vial ONE (09:24)
[2018-01-10] MEDS ORDERED: Dexamethasone 4 MG/ML SDV ONE (09:24)
[2018-01-10] MEDS ORDERED: Neostigmine Methylsulfate 1 MG/ML 5 ML Syringe ONE (09:24)
[2018-01-10] MEDS ORDERED: Propofol 200 MG/20 ML SDV ONE (09:24)
[2018-01-10] MEDS ORDERED: fentaNYL 250 MCG/5 ML SDV ONE ×3 (09:24→14:44)
[2018-01-10] MEDS ORDERED: Midazolam 1 MG/ML 2 ML SDV ONE (09:24)
[2018-01-10] MEDS ORDERED: Albuterol/Ipratropium 3.0-0.5 MG/3 ML Neb Soln NEB ONE (09:30)
[2018-01-10] MEDS ORDERED: cefOXitin 2 GM in Sodium Chloride 0.9% 50 ML IV ONE (10:15)
[2018-01-10] MEDS ORDERED: Lidocaine 2% 100 MG/5 ML Syringe IVPUSH ONE (10:30)
[2018-01-10] MEDS ORDERED: Lidocaine 0.4%/D5W 2 GM/500 ML BAG IV SCH (10:30)
[2018-01-10] MEDS ORDERED: Ropivacaine 60 ML, Dexamethasone 8 MG, EPINEPHrine 0.4 MG, Sodium Chloride 0.9% 17.6 ML NERVRT SCH ×4 (10:30)
[2018-01-10] MEDS ORDERED: Ketamine 500 MG/5 ML MDV IV SCH (10:30)
[2018-01-10] MEDS ORDERED: Sodium Chloride 0.9% Irrigation 1,000 ML Container IRR ONE (13:45)
[2018-01-10] MEDS ORDERED: fentaNYL 100 MCG/2 ML SDV ONE (16:38)
[2018-01-10] MEDS ORDERED: Naloxone 0.4 MG/ML SDV ONE (16:57)
[2018-01-10] MEDS ORDERED: Labetalol 20 MG/4 ML Syringe IV PRN (17:21)
[2018-01-10] MEDS ORDERED: Ondansetron 4 MG/2 ML SDV IVPUSH PRN (18:00)
[2018-01-10] MEDS ORDERED: diphenhydrAMINE 50 MG/ML SDV IVPUSH PRN (18:00)
[2018-01-10] MEDS ORDERED: Albuterol/Ipratropium 3.0-0.5 MG/3 ML Neb Soln INH PRN (18:00)
[2018-01-10] MEDS ORDERED: Labetalol 20 MG/4 ML Syringe IVPUSH PRN (18:00)
[2018-01-10] MEDS ORDERED: Metoclopramide 10 MG/2 ML SDV IVPUSH PRN (18:00)
[2018-01-10] MEDS: hydrOXYzine HCl 100 MG/2 ML SDV IM PRN (18:47)
[2018-01-10] MEDS: Heparin Sodium 5,000 Units/ML Vial SUBCUT SCH (20:50)
[2018-01-10] MEDS: MVI, Adult with Vitamin K 10 ML, Thiamine 100 MG, Chromium/Copper/Mang/Selen/Zn 1 ML in... IV SCH ×4 (20:51)
[2018-01-10] MEDS: cefOXitin 2 GM in Sodium Chloride 0.9% 50 ML IV SCH (20:52)
[2018-01-10] MEDS: Albuterol/Ipratropium 3.0-0.5 MG/3 ML Neb Soln INH SCH (20:53)
[2018-01-10] MEDS: Acetaminophen Soln 650 MG/20.3 ML UD Cup PO SCH (20:53)
[2018-01-10] MEDS: Pantoprazole 40 MG Vial IVPUSH SCH (20:53)
[2018-01-11] MEDS ORDERED: Iohexol 647 MG/ML 50 ML SDV PO SCH (00:15)
[2018-01-11] MEDS: cefOXitin 2 GM in Sodium Chloride 0.9% 50 ML IV SCH ×4 (02:15→20:53)
[2018-01-11] MEDS: Acetaminophen Soln 650 MG/20.3 ML UD Cup PO SCH ×4 (02:15→20:53)
[2018-01-11] MEDS: hydrOXYzine HCl 100 MG/2 ML SDV IM PRN (03:52)
[2018-01-11] MEDS: Albuterol/Ipratropium 3.0-0.5 MG/3 ML Neb Soln INH SCH ×4 (07:31→20:54)
[2018-01-11] MEDS: Celecoxib 200 MG Cap PO SCH (07:36)
[2018-01-11] MEDS: Heparin Sodium 5,000 Units/ML Vial SUBCUT SCH ×2 (07:36→20:53)
[2018-01-11] MEDS: Benzocaine/Cetylpyridinium/Menthol Lozenge MUCMEM PRN (08:15)
[2018-01-11] MEDS ORDERED: Zolpidem 5 MG Tab PO PRN (09:06)
[2018-01-11] MEDS: HYDROmorphone 2 MG Tab PO PRN ×4 (10:12→20:55)
[2018-01-11] MEDS: SCOPOLAMINE PATCH CHECK TOP SCH (10:14)
[2018-01-11] MEDS: Dextrose 5%-Lactated Ringers 1,000 ML IV SCH (10:18)
[2018-01-11] MEDS: Carvedilol 3.125 MG Tab PO SCH ×2 (10:34→17:14)
[2018-01-11] MEDS: Aspirin 81 MG Tab.EC PO SCH (10:34)
[2018-01-11] MEDS: Sodium Ferric Gluconate Cmplex 250 MG in Sodium Chloride 0.9% 100 ML IV SCH (10:36)
[2018-01-11] MEDS: MVI, Adult with Vitamin K 10 ML, Thiamine 100 MG, Chromium/Copper/Mang/Selen/Zn 1 ML in... IV SCH ×4 (17:08)
[2018-01-11] MEDS: Pantoprazole 40 MG Vial IVPUSH SCH (20:53)
[2018-01-12] MEDS: Acetaminophen Soln 650 MG/20.3 ML UD Cup PO SCH ×4 (01:56→19:30)
[2018-01-12] MEDS: cefOXitin 2 GM in Sodium Chloride 0.9% 50 ML IV SCH (01:56)
[2018-01-12] MEDS: Dextrose 5%-Lactated Ringers 1,000 ML IV SCH (03:57)
[2018-01-12] MEDS: Albuterol/Ipratropium 3.0-0.5 MG/3 ML Neb Soln INH SCH ×4 (07:27→21:57)
[2018-01-12] MEDS: Carvedilol 3.125 MG Tab PO SCH ×2 (07:45→16:28)
[2018-01-12] MEDS: Celecoxib 200 MG Cap PO SCH (07:45)
[2018-01-12] MEDS: Heparin Sodium 5,000 Units/ML Vial SUBCUT SCH ×2 (07:46→19:30)
[2018-01-12] MEDS: HYDROmorphone 2 MG Tab PO PRN ×4 (07:47→22:46)
[2018-01-12] MEDS ORDERED: Cyanocobalamin (Vitamin B12) 1,000 MCG/ML SDV IM ONE (09:00)
[2018-01-12] MEDS: Aspirin 81 MG Tab.EC PO SCH (09:28)
[2018-01-12] MEDS: SCOPOLAMINE PATCH CHECK TOP SCH (09:30)
[2018-01-12] MEDS ORDERED: diphenhydrAMINE 25 MG Cap PO PRN (09:49)
[2018-01-12] MEDS: Sodium Ferric Gluconate Cmplex 250 MG in Sodium Chloride 0.9% 100 ML IV SCH (10:47)
[2018-01-12] MEDS: Benzocaine/Cetylpyridinium/Menthol Lozenge MUCMEM PRN (19:29)
[2018-01-13] MEDS: Acetaminophen Soln 650 MG/20.3 ML UD Cup PO SCH ×2 (02:45→07:27)
[2018-01-13] MEDS: HYDROmorphone 2 MG Tab PO PRN ×2 (02:51→07:24)
[2018-01-13 07:20] VITALS: BP 161/94
[2018-01-13] MEDS: Carvedilol 3.125 MG Tab PO SCH (07:26)
[2018-01-13] MEDS: Celecoxib 200 MG Cap PO SCH (07:26)
[2018-01-13] MEDS: Heparin Sodium 5,000 Units/ML Vial SUBCUT SCH (07:27)
--- NOTE | 2018-01-13 07:58 | PN ---
DATE OF SERVICE: 01/11/2018 The patient is postoperative day #1 from a partial gastrectomy for gastric ulcer refractory to medical management. Also, he had a small bowel resection for an area of the small bowel adjacent to his jejunojejunostomy that was ischemic after takedown of adhesions. Postoperatively, he has done well, and upper GI x-ray looks good. He will go up to a step-2 diet today without solids, restrict some of his oral medications, and will continue with the Celebrex and gabapentin and Tylenol with Dilaudid as backup orally. Breezy Alexander MD /[id number]
--- NOTE | 2018-01-13 09:11 | CR ---
UGI wo KUB HISTORY: eval R -Y GBP FINDINGS: After administration of oral contrast, upright views were obtained. Post operative changes gastric bypass. Surgical drains in place. No evidence for leak. Contrast passes freely into proximal small bowel loops. Surgical clips right upper quadrant. IMPRESSION: No evidence for leak or obstruction.
[2018-01-13] MEDS: Albuterol/Ipratropium 3.0-0.5 MG/3 ML Neb Soln INH SCH (09:15)
[2018-01-13] MEDS: Aspirin 81 MG Tab.EC PO SCH (09:16)
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
--- NOTE | 2018-01-14 02:46 | DISCH ---
ADMISSION DIAGNOSES: Gastric ulcer, refractory to medical management, hypertension, obstructive sleep apnea, history of laparoscopic partial gastrectomy, iron deficiency anemia, dyslipidemia, bradycardia, right bundle branch block, obesity. DISCHARGE DIAGNOSES: Diagnostic laparoscopy with lysis of adhesions and a partial gastrectomy with Arlen-en-Y gastric jejunostomy and small bowel resection for gastric ulcer refractory to medical management and devascularized segment of the small bowel, status post takedown adhesions. Date of surgery, 01/10/2018. Surgeon, Breezy Alexander MD. HISTORY: Ruthie Tomlinson is a 52-year-old male with gastric ulcers refractory to medical management. After preoperative evaluation and discussion of the possible risks and possible complications, he wished to proceed with surgical procedure. HOSPITAL COURSE: Ruthie had his surgery on 01/10/2018. He had no operative complications. On postop day #1, his upper GI was normal. On postop day #1, he was started on step-2 gastric bypass diet with no cereal and he was started on his oral home medications. He did have an episode of hallucination and confusion after taking Dilaudid and Ambien, which quickly resolved on 01/11/2018. On 01/12/2018, his pain was well managed. His activity was good. RAMIREZ drain was discontinued, and on postop day #3, he was able to be discharged to home after receiving dietary instructions. PHYSICAL EXAMINATION: GENERAL: Ruthie Tomlinson is a 52-year-old male. VITAL SIGNS: Height is 6 feet 1 inch, weight is 292 pounds, BMI is 38. TPR 97.3, 62, 16, blood pressure 161/94. HEENT: Negative. NECK: Supple. HEART: Regular rate and rhythm. LUNGS: Clear. ABDOMEN: Incisions look good. Abdominal binder is on. EXTREMITIES: Without peripheral edema. DISPOSITION: Discharged to home. CONDITION: Stable and improving. FOLLOWUP APPOINTMENT: With Arpita Waddell PA-C, on 01/22/2018 at 9:00 a.m. HOME MEDICATIONS: 1. Tylenol 650 mg q.6 hours chewable or liquid scheduled for 2 weeks. 2. Aspirin 81 mg p.o. daily. 3. Carvedilol, Coreg 3.125 mg oral twice daily with meals. 4. Celebrex 200 mg p.o. daily for 14 days. 5. Dilaudid 2 mg 1 to 2 every 4 hours p.r.n. pain, #40. 6. Citalopram 20 mg p.o. daily. 7. Nitroglycerin 1 tablet sublingual p.r.n. 8. Protonix 40 mg at bedtime. 9. Lipitor 80 mg p.o. daily. 10.Atarax 50 mg oral at bedtime p.r.n. itching. 11.He is to discontinue taking the Carafate, Ambien, and all vitamins and supplements until after 1st postop appointment. DISCHARGE DIET: Step-2 gastric bypass diet without cereal for 2 weeks. Drink 8 to 10 glasses of water a day. ACTIVITY: As tolerated. Walk at least 6 times daily inside your house. Driving, do not drive for one week or while on pain medication. DISCHARGE INSTRUCTIONS: Shower/bathing, may shower. Notify provider if any fever, increased pain, nausea, or vomiting. Keep site clean and dry. Wear abdominal binder for 2 weeks and then as tolerated. SPECIAL INSTRUCTIONS: Use incentive spirometer 10 times every hour while awake for 1 week. Keep protein liquid and activity journal and bring to clinic appointments.
--- NOTE | 2018-01-17 08:36 | OR ---
DATE OF PROCEDURE: 01/10/2018 PREOPERATIVE DIAGNOSIS: Gastric ulcers, refractory to medical management. POSTOPERATIVE DIAGNOSES: 1. Gastric ulcers, refractory to medical management. 2. Devascularization of a segment of small bowel, status post takedown of adhesions. OPERATIVE PROCEDURES: Diagnostic laparoscopy with lysis of adhesions and: 1. Partial gastrectomy with Arlen-en-Y gastrojejunostomy (76884). 2. Small bowel resection ([id number]). ANESTHESIA: General. AUTOMATIC FABRIC CUTTER: Arpita Waddell PA-C and MARAH Scott. INDICATIONS FOR PROCEDURE: This is a 52-year-old male presenting with ongoing upper abdominal pain. He was noted recently to have some gastric ulcers in the area of the gastrojejunostomy, previously performed in [place], which had been refractory to medical management. Given this, he is to undergo higher proximal gastric resection, along with reconstruction with a Arlen-en-Y gastrojejunostomy. The line of resection will be essentially near the esophagogastric junction, so as to have minimal parietal cell mass remaining at the area of the new gastrojejunostomy. Potential risks including bleeding, infection, injury to underlying viscera, leaks from various GI tract closures, as well as possibility of cardiopulmonary, septic, or hemorrhagic complications leading to were discussed, and the patient wishes to proceed. DETAILS OF PROCEDURE: The patient was taken to the operating room, placed in a supine position. After general endotracheal anesthesia was induced, she was converted to lithotomy position, and the abdomen prepped and draped. At 15 cm inferior and 5 cm left of xiphoid process, a transverse incision was made and peritoneal cavity entered under direct vision with an Optiview trocar, inflated to 15 mmHg pressure with CO2. Laparoscope was then reinserted. No underlying trocar insertion site injuries were seen. Bilateral subcostal transversus abdominis plane blocks were then placed with direct visualization of the needle in the correct plane and injection of the standard solution bilaterally. Following this, 5 additional trocars were placed across the upper mid abdomen, and general exploration was undertaken. The patient was noted to have some adhesions between the area of the gastrojejunostomy and the liver. These were then taken down. The liver size at this time was fairly normal. At that point, the area well above the current gastrojejunostomy was encircled, after dissection behind the stomach at that level. The plane of dissection again was essentially flush with the esophagogastric junction, and that area was then divided with MICKEY black loads. Dissection then began along the gastrojejunostomy. The small bowel distal to that was then encircled and then divided with a MICKEY mcmanus load. The more proximal stomach, along with the gastrojejunostomy, was then sequentially dissected free from the surrounding areas with Harmonic scalpel, the attachments divided with a combination of vascular and mesenteric MICKEY loads, and that specimen, consisting of the proximal stomach and gastrojejunostomy, was then delivered from the field. As one tried to mobilize the Arlen limb up, it was noted to be encased in quite a bit in the way of adhesions. As one dissected this further, it eventually came up to the new gastric resection line without tension. The distalmost aspect of the Arlen limb was significantly devascularized following this dissection, and this was then divided flush with the jejunojejunostomy, and a segment of bowel above that, i.e. the distalmost Arlen limb, was then excised with means of additional mesenteric resection and division with a MICKEY stapler. That specimen was likewise delivered from the field. At this point, the new gastrojejunostomy was accomplished with placement of anvil via orogastric tube attached to it, into the new gastric resection staple line. The main body of the EEA stapler, which was a 25 mm stapler, was then attached to the [place] sump-type tube and moved up into the Arlen limb, brought up to the anvil, united with it, thus creating the new gastrojejunostomy. Upon removal of the stapler, double donuts of mucosa were noted within it. The small bowel was then closed off with a vascular staple line. Gastrojejunostomy was reinforced with some 3-0 Vicryl seromuscular stitch, along with fibrin sealant. A leak test was accomplished with injection of 120 mL of air in the gastric pouch while submerged in cefoxitin-containing saline solution. No leaks were identified. Attention was then taken to re-establishing the small bowel continuity. The patient's present Arlen limb measured around 140 cm, and the ileocecal valve was identified and then walked back 250 cm, giving the patient roughly a 400 cm alimentary limb. At this level, a dpco-te-abhn enteroenterostomy was accomplished with internal firing of the MICKEY stapler. The common opening was then closed transversely with the MICKEY stapler as well, the angles anastomosed, and the mesenteric defect was approximated with some 0 Ethibond stitch and this area also then reinforced with some fibrin sealant. At that point, no further problems were noted. A single Andres-Hylton drain was taken out through the left lateral trocar site and placed adjacent to the gastrojejunostomy. No further problems were noted. Trocars were removed. The peritoneal cavity deflated. The incision was closed with 4-0 Vicryl skin stitch, and the patient taken to the recovery room in satisfactory condition. Physician mobile unit assistant, Arpita Waddell, played an essential role in assisting in this case, helping to position the patient, retract structures as needed, as well as suturing and cutting sutures when indicated. Her presence improved patient safety and decreased operative time. Breezy Alexander MD /[id number]
== END 2018-01-13 09:45 | disposition home or self-care (01) | DRG 327 ==
LOC: JP.MS 08:17 → JP.SDS 08:17 → EDSTATUS 14:00 → JP.2SS 18:30
PROVIDERS: ADMIT Surgery; ATTEND Surgery
PROC: 0DB64ZX Excision of Stomach, Percutaneous Endoscopic Approach, Diagnostic (ICD-10-PCS; principal; 2018-01-10)
PROC: 0DB84ZX Excision of Small Intestine, Percutaneous Endoscopic Approach, Diagnostic (ICD-10-PCS; 2018-01-10)
PROC: 0D164ZA Bypass Stomach to Jejunum, Percutaneous Endoscopic Approach (ICD-10-PCS; 2018-01-10)
DX: K25.9 Gastric ulcer, unspecified as acute or chronic, without hemorrhage or perforation (principal); K55.8 Other vascular disorders of intestine; R44.3 Hallucinations, unspecified; I10 Essential (primary) hypertension; Z98.84 Bariatric surgery status; Z98.0 Intestinal bypass and anastomosis status; G47.33 Obstructive sleep apnea (adult) (pediatric); D50.9 Iron deficiency anemia, unspecified; E78.5 Hyperlipidemia, unspecified; I45.10 Unspecified right bundle-branch block; Z79.82 Long term (current) use of aspirin; Z88.8 Allergy status to other drugs, medicaments and biological substances; R41.0 Disorientation, unspecified; T40.2X5A Adverse effect of other opioids, initial encounter; T42.6X5A Adverse effect of other antiepileptic and sedative-hypnotic drugs, initial encounter; Y92.230 Patient room in hospital as the place of occurrence of the external cause
CPT/HCPCS: 36415; 74240; 74240-26; 82962; 86850; 86900; 86901; 88307; 94640; 94762; A9270-GY; C9113; J0171; J0694; J1100; J1644; J2001; J2250; J2310; J2405; J2704; J2710; J2795; J2916; J3010; J3410; J3411; J3420; J7030; J7042; J7050; J7620; Q9967

== ENCOUNTER 2018-01-27 05:53 | Day surgery (SDC) | payer MEDICAID ==
[2018-01-27] MEDS ORDERED: Sodium Chloride 0.9% 10 ML Syringe FLUSH PRN (06:28)
[2018-01-27] MEDS ORDERED: Lactated Ringers 1,000 ML IV SCH (06:30)
--- NOTE | 2018-01-27 06:33 | EDM.PDOC ---
ED HPI GENERAL MEDICAL PROBLEM - General Chief Complaint: Abdominal Pain Stated Complaint: ABDOMINAL PAIN Time Seen by Provider: 01/27/18 06:23 Source of Information: Reports: Patient, RN Notes Reviewed History Limitations: Reports: No Limitations - History of Present Illness INITIAL COMMENTS - FREE TEXT/NARRATIVE: 52-year-old gentleman presents to the emergency department today complaint of epigastric pain, he does have a history of gastric bypass with revision he states the pain has gotten worse over the last 24-48 hrs. to the point where he now has difficulty swallowing even small sips of water, no shortness of breath no chest pain he does feel nauseated was able to eat dinner last night but had difficulty abdominal pain Pain Score (Numeric/FACES): 9 - Related Data Allergies Allergy/AdvReac Type Severity Reaction Status Date / Time gabapentin Allergy Cannot Verified 01/27/18 06:07 Remember Home Meds: Home Meds Multivitamin with Minerals [Multiple Vitamin] 1 tab PO DAILY 05/02/15 [History] Nitroglycerin 1 tab SL ASDIRECTED 10/11/16 [History] atorvaSTATin [Lipitor] 80 mg PO DAILY 10/11/16 [History] Calcium Carbonate/Vitamin D3 [Calcium 600-Vit D3 500 Softgel] 1 each PO DAILY [History] Carvedilol [Coreg] 3.125 mg PO DAILY 11/25/17 [History] Citalopram Hydrobromide [Celexa] 20 mg PO DAILY 11/25/17 [History] Zolpidem [Ambien] 10 mg PO BEDTIME PRN 11/25/17 [History] Albuterol Sulfate [Proair Hfa] 1 puff INH Q6HR PRN 01/08/18 [History] Ferrous Fumarate/Vitamin C [Vitron-C] 1 tab PO DAILY 01/08/18 [History] Pantoprazole Sodium [Protonix] 40 mg PO DAILY 01/08/18 [History] Sucralfate [Carafate] 1 tab PO QID 01/08/18 [History] Aspirin [Halfprin] 81 mg PO DAILY tab.ec 01/13/18 [Rx] Acetaminophen [Tylenol] 650 mg PO Q6H PRN 01/27/18 [History] Past Medical History HEENT History: Reports: Impaired Vision Cardiovascular History: Reports: CAD, High Cholesterol, Hypertension Other Cardiovascular History: 40% blockage per angio gram Respiratory History: Reports: Sleep Apnea Other Respiratory History: c-pap Gastrointestinal History: Reports: Cholelithiasis, Colon Polyp Musculoskeletal History: Reports: Arthritis Other Musculoskeletal History: DDD Psychiatric History: Reports: Depression Endocrine/Metabolic History: Reports: Obesity/BMI 30+ Hematologic History: Reports: Anemia, Iron Deficiency - Infectious Disease History Infectious Disease History: Reports: Chicken Pox, Mumps - Past Surgical History Head Surgeries/Procedures: Reports: None HEENT Surgical History: Reports: Tonsillectomy Cardiovascular Surgical History: Reports: Percutaneous Transluminal Angioplasty Respiratory Surgical History: Reports: None GI Surgical History: Reports: Appendectomy, Bariatric Procedure, Cholecystectomy , Colonoscopy, EGD, Hernia Repair/Other Other GI Surgeries/Procedures: 2009 rny Endocrine Surgical History: Reports: None Musculoskeletal Surgical History: Reports: Carpal Tunnel, Shoulder Surgery Social & Family History - Family History Family Medical History: Noncontributory - Tobacco Use Smoking Status *Q: Never Smoker Second Hand Smoke Exposure: No - Caffeine Use Caffeine Use: Reports: Coffee - Alcohol Use Days Per Week of Alcohol Use: 3 Number of Drinks Per Day: 1 Total Drinks Per Week: 3 - Recreational Drug Use Recreational Drug Use: No ED ROS GENERAL - Review of Systems Review Of Systems: See Below Constitutional: Reports: No Symptoms HEENT: Reports: No Symptoms Respiratory: Reports: No Symptoms Cardiovascular: Reports: No Symptoms GI/Abdominal: Reports: Abdominal Pain, Nausea, Vomiting : Reports: No Symptoms Musculoskeletal: Reports: No Symptoms Skin: Reports: No Symptoms ED EXAM, GI/ABD - Physical Exam Exam: See Below Exam Limited By: No Limitations General Appearance: Alert, Mild Distress Eyes: Bilateral: Normal Appearance Head: Atraumatic, Normocephalic Neck: Normal Inspection, Supple, Non-Tender, Full Range of Motion Respiratory/Chest: No Respiratory Distress, Lungs Clear, Normal Breath Sounds, No Accessory Muscle Use Cardiovascular: Regular Rate, Rhythm, No Murmur GI/Abdominal Exam: Soft, Tender (Epigastric region) Extremities: Normal Inspection, Non-Tender Course - Vital Signs Last Recorded V/S: Last Vital Signs Temp 96.4 F 01/27/18 11:10 Pulse 58 L 01/27/18 11:25 Resp 14 01/27/18 11:10 BP 126/79 01/27/18 11:25 Pulse Ox 90 L 01/27/18 11:10 - Orders/Labs/Meds Orders: Active Orders 24 hr Category Date Time Status Peripheral IV Care [RC] . DIRECTED Care 01/27/18 06:29 Active OR Fluoro-NC [CR] Routine Exams 01/27/18 10:30 Taken Peripheral IV Insertion Adult [OM.PC] Urgent Oth 01/27/18 06:28 Ordered Labs: Laboratory Tests 01/27/18 01/27/18 01/27/18 Range/Units 06:45 06:45 06:45 WBC 7.1 (4.5-11.0) K/uL RBC 4.90 (4.30-5.90) M/uL Hgb 14.4 (12.0-15.0) g/dL Hct 42.8 (40.0-54.0) % MCV 87 (80-98) fL MCH 29 (27-31) pg MCHC 34 (32-36) % Plt Count 271 (150-400) K/uL Neut % (Auto) 57 (36-66) % Lymph % (Auto) 30 (24-44) % Pierce % (Auto) 7 H (2-6) % Eos % (Auto) 6 H (2-4) % Baso % (Auto) 1 (0-1) % Sodium 141 (140-148) mmol/L Potassium 3.7 (3.6-5.2) mmol/L Chloride 104 (100-108) mmol/L Carbon Dioxide 25 (21-32) mmol/L Anion Gap 11.6 (5.0-14.0) mmol/L BUN 13 (7-18) mg/dL Creatinine 1.1 (0.8-1.3) mg/dL Est Cr Clr Drug Dosing 87.77 mL/min Estimated GFR (MDRD) > 60 (>60) Glucose 102 (74-106) mg/dL Lactic Acid 1.7 (0.4-2.0) mmol/L Calcium 9.0 (8.5-10.1) mg/dL Total Bilirubin 0.7 (0.2-1.0) mg/dL AST 40 H (15-37) U/L ALT 59 (12-78) U/L Alkaline Phosphatase 86 (46-116) U/L Troponin I < 0.017 (0.000-0.056) ng/mL Total Protein 7.5 (6.4-8.2) g/dL Albumin 4.1 (3.4-5.0) g/dL Globulin 3.4 (2.3-3.5) g/dL Albumin/Globulin Ratio 1.2 (1.2-2.2) Lipase 335 (73-393) U/L Meds: Medications Discontinued Medications Generic Name Dose Route Start Last Admin Trade Name Slimq PRN Reason Stop Dose Admin Al Hydroxide/Mg Hydroxide 360 0 ml 01/27/18 16:00 01/27/18 11:33 ml/ Lidocaine HCl 60 ml PO 30 ml TIDAC REYNOLD Administration Cyanocobalamin 1,000 mcg 01/27/18 10:00 01/27/18 10:22 Vitamin B12 IM 01/27/18 10:01 1,000 mcg ONETIME ONE Administration Fentanyl 50 mcg 01/27/18 06:36 01/27/18 06:48 Sublimaze IVPUSH 01/27/18 06:37 50 mcg ONETIME ONE Administration Fentanyl Confirm 01/27/18 09:40 Sublimaze Administered 01/27/18 09:41 Dose 100 mcg .ROUTE .STK-MED ONE Glycopyrrolate 0.4 mg 01/27/18 10:00 01/27/18 10:21 Glycopyrrolate IVPUSH 01/27/18 10:01 0.4 mg ONETIME ONE Administration Lactated Ringer's 1,000 mls @ 999 mls/hr 01/27/18 06:30 01/27/18 06:45 Ringers, Lactated IV 999 mls/hr ASDIRECTED REYNOLD Administration Multivitamins/Minerals 10 ml/ 1,012 mls @ 500 mls/hr 01/27/18 08:00 01/27/18 08:15 Thiamine HCl 100 mg/ Chromium/ IV 01/27/18 10:01 500 mls/hr Copper/Manganese/Seleni/Zn 1 ONETIME ONE Administration ml/ Lactated Ringer's Midazolam HCl Confirm 01/27/18 09:40 Versed 1 Mg/Ml Administered 01/27/18 09:41 Dose 2 mg .ROUTE .STK-MED ONE Ondansetron HCl 4 mg 01/27/18 06:36 01/27/18 06:47 Zofran IVPUSH 01/27/18 06:37 4 mg ONETIME ONE Administration Propofol Confirm 01/27/18 09:40 Diprivan 20 Ml Administered 01/27/18 09:41 Dose 200 mg .ROUTE .STK-MED ONE Sodium Chloride 10 ml 01/27/18 06:28 01/27/18 06:52 Saline Flush FLUSH 10 ml ASDIRECTED PRN Administration Keep Vein Open Departure - Departure Time of Disposition: 18:03 Disposition: Admitted As Inpatient 65 Condition: Good Clinical Impression: Abdominal pain Qualifiers: Abdominal location: epigastric Qualified Code(s): R10.13 - Epigastric pain - Discharge Information - My Orders Last 24 Hours: My Active Orders 01/27/18 06:28 Peripheral IV Insertion Adult [OM.PC] Urgent 01/27/18 06:29 Peripheral IV Care [RC] . DIRECTED - Assessment/Plan Last 24 Hours: My Active Orders 01/27/18 06:28 Peripheral IV Insertion Adult [OM.PC] Urgent 01/27/18 06:29 Peripheral IV Care [RC] . DIRECTED Plan: Assessment Acuity = acute Site and laterality = epigastric abdominal pain complicated patient with known history of gastric bypass Etiology = suspicious for stricture Manifestations = none Location of injury = Home Lab values = pending Plan Called discussed case with Dr. Alexander general surgery he agreed to come and evaluate the patient in the emergency department for possible surgical intervention This note was dictated using [employer] voice recognition software please call with any questions on syntax or jeffry.
[2018-01-27] MEDS ORDERED: Ondansetron 4 MG/2 ML SDV IVPUSH ONE (06:36)
[2018-01-27] MEDS ORDERED: fentaNYL 100 MCG/2 ML SDV IVPUSH ONE (06:36)
[2018-01-27] MEDS ORDERED: MVI, Adult with Vitamin K 10 ML, Thiamine 200 MG, Chromium/Copper/Mang/Selen/Zn 1 ML in... IV ONE ×4 (06:43)
[2018-01-27] MEDS ORDERED: MVI, Adult with Vitamin K 10 ML, Thiamine 100 MG, Chromium/Copper/Mang/Selen/Zn 1 ML in... IV ONE ×4 (08:00)
[2018-01-27] MEDS ORDERED: Midazolam 1 MG/ML 2 ML SDV ONE (09:40)
[2018-01-27] MEDS ORDERED: Propofol 200 MG/20 ML SDV ONE (09:40)
[2018-01-27] MEDS ORDERED: fentaNYL 100 MCG/2 ML SDV ONE (09:40)
[2018-01-27] MEDS ORDERED: Glycopyrrolate 0.2 MG/ML 2 ML SDV IVPUSH ONE (10:00)
[2018-01-27] MEDS ORDERED: Cyanocobalamin (Vitamin B12) 1,000 MCG/ML SDV IM ONE (10:00)
[2018-01-27 11:45] VITALS: BP 126/79
[2018-01-27] MEDS ORDERED: Alum Hydrox/Mag Hydrox/Simeth 360 ML, Lidocaine 2% 60 ML PO SCH ×2 (16:00)
--- NOTE | 2018-02-06 09:00 | OR ---
DATE OF PROCEDURE: 01/27/2018 PREOPERATIVE DIAGNOSIS: Probable stricture gastrojejunostomy. POSTOPERATIVE DIAGNOSIS: Minimal stricture at gastrojejunostomy. OPERATIVE PROCEDURE: Upper GI endoscopy with dilation of gastrojejunostomy (31102). ANESTHESIA: IV sedation. INDICATIONS FOR PROCEDURE: The patient is status post a partial gastrectomy on 01/10/2017, and he presents now with stricturing at his gastrojejunostomy. Plan is to proceed with upper GI endoscopy with dilation as indicated. Potential risks, including bleeding and perforation were discussed, and the patient wishes to proceed. DETAILS OF PROCEDURE: The patient was taken to the operating room, placed in a left lateral decubitus position. IV sedation was administered, after which the upper GI endoscope was passed orally through the length of the esophagus and to the level of the gastrojejunostomy. No retained food or fluid was noted. The anastomosis was actually not overly strictured with the scope easily being passed through it. At that point, a Bard gastrointestinal balloon catheter was centered across the anastomosis and inflated to 45-Uzbek size. This resulted in minimal additional luminal diameter, but some dilation did occur. No complications were evident. The scope was withdrawn and the procedure concluded. The patient was taken to the recovery room in satisfactory condition. Breezy Alexander MD /[id number]
== END 2018-01-27 11:45 | disposition home or self-care (01) ==
LOC: JP.ED 05:53 → JP.SDS 07:37
PROVIDERS: ATTEND Surgery
DX: K91.89 Other postprocedural complications and disorders of digestive system (principal); I10 Essential (primary) hypertension; E66.9 Obesity, unspecified; D50.9 Iron deficiency anemia, unspecified; G47.33 Obstructive sleep apnea (adult) (pediatric); E78.00 Pure hypercholesterolemia, unspecified; I25.10 Atherosclerotic heart disease of native coronary artery without angina pectoris; Z79.82 Long term (current) use of aspirin; Z79.899 Other long term (current) drug therapy; Z88.8 Allergy status to other drugs, medicaments and biological substances; Z98.84 Bariatric surgery status
CPT/HCPCS: 36415; 43245; 80053; 83605; 83690; 84484; 85025; 96361; 96374; 96375; 99285; A9270; J2250; J2405; J2704; J3010; J3411; J3420; J7050; J7120; J3490

== ENCOUNTER 2018-03-14 05:46 | Emergency (ER) | payer SELFPAY ==
[2018-03-14 06:16] VITALS: BP 136/91
--- NOTE | 2018-03-14 06:40 | EDM.PDOC ---
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 We inmate was falling, the patient reached out to grab him and while he was bent forward he felt a pull in his lower back. He had minimal to moderate pain initially but as the night went on it got worse, tonight he can barely get up from a sitting position or go up and down stairs. He has pain in the lower back radiating into the right buttock and posterior right thigh. He does have a history of degenerative disc disease and has received steroid injections in his back in the past. He has a history of recurring gastric ulcers requiring surgery and cannot take anti-inflammatories. Onset: Sudden Severity: Moderate Associated Symptoms: Reports: No Other Symptoms Lower Back Pain Score (Numeric/FACES): 8 - Related Data Allergies Allergy/AdvReac Type Severity Reaction Status Date / Time gabapentin Allergy Cannot Verified 03/14/18 05:52 Remember Home Meds: Home Meds Multivitamin with Minerals [Multiple Vitamin] 1 tab PO DAILY 05/02/15 [History] Nitroglycerin 1 tab SL ASDIRECTED 10/11/16 [History] atorvaSTATin [Lipitor] 80 mg PO DAILY 10/11/16 [History] Calcium Carbonate/Vitamin D3 [Calcium 600-Vit D3 500 Softgel] 1 each PO DAILY [History] Carvedilol [Coreg] 3.125 mg PO DAILY 11/25/17 [History] Citalopram Hydrobromide [Celexa] 20 mg PO DAILY 11/25/17 [History] Zolpidem [Ambien] 10 mg PO BEDTIME PRN 11/25/17 [History] Albuterol Sulfate [Proair Hfa] 1 puff INH Q6HR PRN 01/08/18 [History] Pantoprazole Sodium [Protonix] 40 mg PO DAILY 01/08/18 [History] Sucralfate [Carafate] 1 tab PO QID 01/08/18 [History] Aspirin [Halfprin] 81 mg PO DAILY tab.ec 01/13/18 [Rx] Acetaminophen [Tylenol] 650 mg PO Q6H PRN 01/27/18 [History] Past Medical History HEENT History: Reports: Impaired Vision Cardiovascular History: Reports: CAD, High Cholesterol, Hypertension Other Cardiovascular History: 40% blockage per angio gram Respiratory History: Reports: Sleep Apnea Other Respiratory History: c-pap Gastrointestinal History: Reports: Cholelithiasis, Colon Polyp Musculoskeletal History: Reports: Arthritis Other Musculoskeletal History: DDD Psychiatric History: Reports: Depression Endocrine/Metabolic History: Reports: Obesity/BMI 30+ Hematologic History: Reports: Anemia, Iron Deficiency - Infectious Disease History Infectious Disease History: Reports: Chicken Pox, Mumps - Past Surgical History HEENT Surgical History: Reports: Tonsillectomy Cardiovascular Surgical History: Reports: Percutaneous Transluminal Angioplasty Respiratory Surgical History: Reports: None GI Surgical History: Reports: Appendectomy, Bariatric Procedure, Cholecystectomy , Colonoscopy, EGD, Hernia Repair/Other Other GI Surgeries/Procedures: 2008 rny ulcer surgery January 10 Endocrine Surgical History: Reports: None Musculoskeletal Surgical History: Reports: Carpal Tunnel, Shoulder Surgery Dermatological Surgical History: Reports: None Social & Family History - Family History Family Medical History: Noncontributory - Tobacco Use Smoking Status *Q: Never Smoker Second Hand Smoke Exposure: No - Caffeine Use Caffeine Use: Reports: Coffee - Recreational Drug Use Recreational Drug Use: No ED ROS GENERAL - Review of Systems Review Of Systems: See Below Constitutional: Denies: Fever, Chills Respiratory: Denies: Shortness of Breath GI/Abdominal: Denies: Abdominal Pain : Reports: No Symptoms Neurological: Reports: Paresthesia (Some slight numbness down the posterior right leg) ED EXAM,LOWER BACK PAIN/INJURY - Physical Exam Exam: See Below Exam Limited By: No Limitations General Appearance: Alert, No Apparent Distress (Looks uncomfortable but not distressed) Respiratory/Chest: No Respiratory Distress Back Exam: Decreased Range of Motion (Significant pain with forward 30 pending , some pain with rotation to the right against resistance.), Paraspinal Tenderness (Marked tenderness to palpation on both sides of the lumbar spine and paralumbar areas) Neurological: Alert, Oriented x 3, Straight Leg Raise (R) (There is increased pain in his lower back and right buttock with straight leg raising on the right , but no true radiculopathy). No: Straight Leg Raise (L) DTR - Lower Extremities: 2+: Knee (R), Knee (L) Psychiatric: Normal Affect, Normal Mood Skin Exam: Warm, Dry Course - Vital Signs Last Recorded V/S: Last Vital Signs Temp 97.2 F 03/14/18 06:15 Pulse 71 03/14/18 06:15 Resp 16 03/14/18 06:15 BP 136/91 H 03/14/18 06:15 Pulse Ox 97 03/14/18 06:15 - Re-Assessments/Exams Free Text/Narrative Re-Assessment/Exam: 03/14/18 06:39 Patient was given 10 hydrocodone for extra pain control along with Flexeril to take 3 times a day. Encouraged to gradually increase activity as tolerated and recheck in 5-7 days if not improving satisfactorily. He can return sooner if worsening such as incontinence or radiculopathy develops in his legs. Departure - Departure Time of Disposition: 06:54 Disposition: Home, Self-Care 01 Condition: Good Clinical Impression: Low back strain Qualifiers: Encounter type: initial encounter Qualified Code(s): S39.012A - Strain of muscle, fascia and tendon of lower back, initial encounter - Discharge Information Instructions: Back Pain, Adult, [id number] Referrals: Glenn Enrique MD [Primary Care Provider] - Forms: ED Department Discharge Care Plan Goals: Use medications as prescribed if needed, and increase activity as tolerated. Recheck in 5-7 days if not improving satisfactorily as you may need physical therapy or further evaluation. Return sooner if worsening such as incontinence or significant leg weakness or numbness.
== END 2018-03-14 06:54 | disposition home or self-care (01) ==
LOC: JP.ED 05:46
DX: S39.012A Strain of muscle, fascia and tendon of lower back, initial encounter (principal); I10 Essential (primary) hypertension; E78.00 Pure hypercholesterolemia, unspecified; M19.90 Unspecified osteoarthritis, unspecified site; Z79.82 Long term (current) use of aspirin; Z79.899 Other long term (current) drug therapy; Z88.8 Allergy status to other drugs, medicaments and biological substances; W19.XXXA Unspecified fall, initial encounter; Y92.143 Cell of prison as the place of occurrence of the external cause
CPT/HCPCS: 99283

== ENCOUNTER 2018-04-04 07:58 | Day surgery (SDC) | payer OTHER ==
[2018-04-04] MEDS ORDERED: fentaNYL 100 MCG/2 ML SDV ONE (08:29)
[2018-04-04] MEDS ORDERED: Midazolam 1 MG/ML 2 ML SDV ONE (08:29)
[2018-04-04] MEDS ORDERED: Propofol 200 MG/20 ML SDV ONE ×3 (08:29→11:07)
[2018-04-04] MEDS ORDERED: Dextrose 5%-Lactated Ringers 1,000 ML IV SCH (08:45)
[2018-04-04] MEDS ORDERED: Glycopyrrolate 0.2 MG/ML 2 ML SDV IVPUSH ONE (09:15)
[2018-04-04 12:18] VITALS: BP 124/87
--- NOTE | 2018-04-12 14:21 | OR ---
DATE OF PROCEDURE: 04/04/2018 PREOPERATIVE DIAGNOSES: 1. Dysphagia status post Arlen-en-Y gastric bypass. 2. Episodes of recent rectal bleeding. POSTOPERATIVE DIAGNOSES: 1. Mild stricture at gastrojejunostomy (not tight enough to likely result in significant dysphagia per se). 2. Mildly excoriated hemorrhoids. PROCEDURE PERFORMED: 1. Upper gastrointestinal endoscopy with dilation of gastrojejunostomy. 2. Flexible colonoscopy. ANESTHESIA: IV sedation. INDICATIONS FOR PROCEDURE: A 52-year-old status post previous Arlen-en-Y gastric bypass, presenting with some dysphagia referable to the distal esophagus or gastric pouch area. He also reports some episodes of rectal bleeding. The plan is to proceed with upper and lower endoscopy with biopsies and/or dilation as indicated. Potential risks including bleeding and perforation were discussed, and the patient wishes to proceed. DETAILS OF PROCEDURE: The patient was taken to the operating room and placed in a left lateral decubitus position. IV sedation was administered, after which the upper GI endoscope was passed orally through the length of the esophagus, through the area of the gastric pouch and gastrojejunostomy roughly 20 cm into the Arlen limb. Findings were essentially normal with there being perhaps a very slight narrowing of the gastrojejunostomy. Bard gastrointestinal balloon catheter was centered across the anastomosis inflated to 54-Estonian size. This was held in its position for 1 minute after which balloon catheter was deflated, withdrawn. Minimal changes of the anatomy were noted at this point indicating once again that this was a minimal and likely physiologically not significant stricture. The scope was then withdrawn and the attention then taken to the colonoscopy. The initial digital rectal exam was performed and was unremarkable. Colonoscope was then passed into the rectum. Retroflexion revealed some mildly excoriated hemorrhoids. The scope was then eventually passed to the cecum. The prep was quite good to that level. No additional pathology was seen. Specifically, there were no areas of diverticulosis. No areas of colitis and no polyps or other signs of neoplasia. The scope was then withdrawn, and the above findings reconfirmed, and the procedure was then concluded. The plan will be to start the patient on a course of Levsin 0.125 mg sublingually q.6 hours p.r.n. dysphagia, and followup will be with Arpita Waddell in 2-3 weeks as arranged. He will be instructed that if he has significant rectal bleeding that he should come in at that point for evaluation for possible hemorrhoid banding. Breezy Alexander MD Job #: [id number]
== END 2018-04-04 12:39 | disposition home or self-care (01) ==
LOC: JP.SDS 07:58
PROVIDERS: ATTEND Surgery
DX: R13.10 Dysphagia, unspecified (principal); K91.89 Other postprocedural complications and disorders of digestive system; K62.5 Hemorrhage of anus and rectum; K64.9 Unspecified hemorrhoids; E66.9 Obesity, unspecified; K21.9 Gastro-esophageal reflux disease without esophagitis; E78.5 Hyperlipidemia, unspecified; G47.33 Obstructive sleep apnea (adult) (pediatric); Z98.84 Bariatric surgery status; Z88.8 Allergy status to other drugs, medicaments and biological substances
CPT/HCPCS: 43245; 45378; J2250; J2704; J3010; J7042; J3490

== ENCOUNTER 2018-04-16 16:34 | Emergency (ER) | payer OTHER ==
[2018-04-16 17:29] VITALS: BP 132/86
[2018-04-16] MEDS ORDERED: Bacitracin Oint 1 GM U/D Packet TOP ONE (17:48)
--- NOTE | 2018-04-16 18:00 | EDM.PDOC ---
ED HPI GENERAL MEDICAL PROBLEM - General Chief Complaint: Head Injury Stated Complaint: LACERATION ABOVE RT EYEBROW Time Seen by Provider: 04/16/18 17:49 Source of Information: Reports: Patient History Limitations: Reports: No Limitations - History of Present Illness INITIAL COMMENTS - FREE TEXT/NARRATIVE: pt hit his rt eyebrow on a piece opf metal. He was not knocked out at the time. 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 Right Eye Pain Score (Numeric/FACES): 2 - Related Data Allergies Allergy/AdvReac Type Severity Reaction Status Date / Time dexamethasone [From Decadron] Allergy Difficulty Verified 04/04/18 08:26 Breathing gabapentin Allergy Depression Verified 04/04/18 08:26 Home Meds: Home Meds Multivitamin with Minerals [Multiple Vitamin] 1 tab PO DAILY 05/02/15 [History] Nitroglycerin 0.4 mg SL ASDIRECTED PRN 10/11/16 [History] atorvaSTATin [Lipitor] 80 mg PO DAILY 10/11/16 [History] Calcium Carbonate/Vitamin D3 [Calcium 600-Vit D3 500 Softgel] 1 tab PO DAILY [History] Carvedilol [Coreg] 3.125 mg PO BIDMEALS 11/25/17 [History] Citalopram Hydrobromide [Celexa] 20 mg PO DAILY 11/25/17 [History] Zolpidem [Ambien] 10 mg PO BEDTIME PRN 11/25/17 [History] Albuterol Sulfate [Proair Hfa] 1 puff INH Q6HR PRN 01/08/18 [History] Pantoprazole Sodium [Protonix] 40 mg PO DAILY 01/08/18 [History] Sucralfate [Carafate] 1 tab PO QID 01/08/18 [History] Aspirin [Halfprin] 81 mg PO DAILY tab.ec 01/13/18 [Rx] Acetaminophen [Tylenol] 650 mg PO Q6H PRN 01/27/18 [History] Hydrocodone/Acetaminophen [Hydrocodon-Acetaminophen 5-325] 1 tab PO BEDTIME PRN 04/02/18 [History] Iron,Carbonyl/Ascorbic Acid [Vitron-C Tablet] 1 tab PO DAILY 04/02/18 [History] hydrOXYzine HCl [Atarax] 50 mg PO BEDTIME PRN 04/02/18 [History] Past Medical History HEENT History: Reports: Impaired Vision Cardiovascular History: Reports: CAD, High Cholesterol, Hypertension Other Cardiovascular History: 40% blockage per angio gram Respiratory History: Reports: Sleep Apnea Other Respiratory History: c-pap Gastrointestinal History: Reports: Cholelithiasis, Colon Polyp Musculoskeletal History: Reports: Arthritis, Other (See Below) Other Musculoskeletal History: DDD, herniated discs in back Psychiatric History: Reports: Depression Endocrine/Metabolic History: Reports: Obesity/BMI 30+ Hematologic History: Reports: Anemia, Iron Deficiency - Infectious Disease History Infectious Disease History: Reports: Chicken Pox, Mumps - Past Surgical History Head Surgeries/Procedures: Reports: None HEENT Surgical History: Reports: Tonsillectomy Cardiovascular Surgical History: Reports: Percutaneous Transluminal Angioplasty Respiratory Surgical History: Reports: None GI Surgical History: Reports: Appendectomy, Bariatric Procedure, Cholecystectomy , Colonoscopy, EGD, Hernia Repair/Other Other GI Surgeries/Procedures: 2008 rny ulcer surgery January 10 Endocrine Surgical History: Reports: None Musculoskeletal Surgical History: Reports: Carpal Tunnel, Shoulder Surgery Dermatological Surgical History: Reports: None Social & Family History - Family History Family Medical History: Noncontributory - Tobacco Use Smoking Status *Q: Never Smoker - Caffeine Use Caffeine Use: Reports: Coffee - Recreational Drug Use Recreational Drug Use: No ED ROS GENERAL - Review of Systems Review Of Systems: See Below Constitutional: Reports: No Symptoms HEENT: Reports: No Symptoms, Other (laceration in the rt eyebrow. ) Respiratory: Reports: No Symptoms Cardiovascular: Reports: No Symptoms Endocrine: Reports: No Symptoms GI/Abdominal: Reports: No Symptoms : Reports: No Symptoms Musculoskeletal: Reports: No Symptoms Skin: Reports: Other (laceration in the rt eyebrow, ) ED EXAM, HEAD INJURY - Physical Exam Exam: See Below Text/Narrative:: pt has a 1/4 inch laceration in the rt eyebrow. Exam Limited By: No Limitations General Appearance: Alert, Mild Distress Head: Other ( laceration in the rt eyebrow. ) Ears: Normal TMs Skin: Other ( 1/4 inch laceration in the rt eyebrow. ) Course - Vital Signs Last Recorded V/S: Last Vital Signs Temp 36 C 04/16/18 17:28 Pulse 54 L 04/16/18 17:28 Resp 14 04/16/18 17:28 BP 132/86 04/16/18 17:28 Pulse Ox 95 04/16/18 17:28 - Orders/Labs/Meds Orders: Active Orders 24 hr Category Date Time Status Bacitracin [Bacitracin Oint 1 GM] Med 04/16/18 17:48 Once 1 dose TOP ONETIME ONE Medication Orders Lidocaine HCl (Xylocaine-Mpf 1%) 5 ml INJECT ONETIME ONE Stop: 04/16/18 17:49 Meds: Medications Generic Name Dose Route Start Last Admin Trade Name Jeana PRN Reason Stop Dose Admin Lidocaine HCl 5 ml 04/16/18 17:48 Xylocaine-Mpf 1% INJECT 04/16/18 17:49 ONETIME ONE - Re-Assessments/Exams Free Text/Narrative Re-Assessment/Exam: 04/16/18 18:04 the area was cleansed well and infiltrated with lidocaine. the wound was brought together with 6-0 prolene. bacatracin was applied and a pressure dressing was applied. 04/16/18 18:05 Departure - Departure Time of Disposition: 18:07 Disposition: Home, Self-Care 01 Condition: Fair Clinical Impression: Laceration of right eyebrow - Discharge Information Referrals: Glenn Enrique MD [Primary Care Provider] - Care Plan Goals: sr in 6 days, leave pressure dressing on for several hours then it can be open to air. - My Orders Last 24 Hours: My Active Orders 04/16/18 17:48 Bacitracin [Bacitracin Oint 1 GM] 1 dose TOP ONETIME ONE - Assessment/Plan Last 24 Hours: My Active Orders 04/16/18 17:48 Bacitracin [Bacitracin Oint 1 GM] 1 dose TOP ONETIME ONE
== END 2018-04-16 18:15 | disposition home or self-care (01) ==
LOC: JP.ED 16:34
DX: S01.111A Laceration without foreign body of right eyelid and periocular area, initial encounter (principal); E78.00 Pure hypercholesterolemia, unspecified; I10 Essential (primary) hypertension; Z88.8 Allergy status to other drugs, medicaments and biological substances; Z79.899 Other long term (current) drug therapy; W22.8XXA Striking against or struck by other objects, initial encounter
CPT/HCPCS: 12011; 99283-25

== ENCOUNTER 2018-12-08 21:22 | Emergency (ER) | payer MEDICAID, OTHER ==
[2018-12-08 21:51] VITALS: BP 142/89
[2018-12-08] MEDS ORDERED: LORazepam 1 MG Tab PO ONE (22:06)
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
[2018-12-08] MEDS ORDERED: Zolpidem 5 MG Tab PO ONE (22:14)
== END 2018-12-08 22:31 | disposition home or self-care (01) ==
LOC: JP.ED 21:22
DX: F41.9 Anxiety disorder, unspecified (principal); I10 Essential (primary) hypertension; E66.9 Obesity, unspecified; F32.9 Major depressive disorder, single episode, unspecified; Z98.890 Other specified postprocedural states; Z90.49 Acquired absence of other specified parts of digestive tract; Z98.84 Bariatric surgery status; Z79.82 Long term (current) use of aspirin; Z79.899 Other long term (current) drug therapy; Z88.8 Allergy status to other drugs, medicaments and biological substances
CPT/HCPCS: 99283; A9270

== ENCOUNTER 2018-12-25 20:55 | Emergency (ER) | payer OTHER ==
[2018-12-25] MEDS ORDERED: Bacitracin Oint 1 GM U/D Packet TOP ONE (21:06)
--- NOTE | 2018-12-25 21:24 | EDM.PDOC ---
ED HPI GENERAL MEDICAL PROBLEM - General Chief Complaint: Laceration Stated Complaint: LACERATION LEFT PALM Time Seen by Provider: 12/25/18 21:06 Source of Information: Reports: Patient History Limitations: Reports: No Limitations - History of Present Illness INITIAL COMMENTS - FREE TEXT/NARRATIVE: pt was carrying some saw blades in his hand storing them in the garage and he fell and landed on the saw blade. He is having alot of discomfort. He has like a puntuire wound from the blade but he is tender over the 5th metacarpal. Onset: Today Duration: Hour(s): Location: Reports: Upper Extremity, Left Associated Symptoms: Reports: No Other Symptoms Left Hand Pain Score (Numeric/FACES): 8 - Related Data Allergies Allergy/AdvReac Type Severity Reaction Status Date / Time dexamethasone [From Decadron] Allergy Severe Difficulty Verified 12/25/18 21:20 Breathing gabapentin Allergy Depression Verified 12/25/18 21:20 Home Meds: Home Meds Multivitamin with Minerals [Multiple Vitamin] 1 tab PO QAM 05/02/15 [History] Nitroglycerin 0.4 mg SL ASDIRECTED PRN 10/11/16 [History] Calcium Carbonate/Vitamin D3 [Calcium 600-Vit D3 500 Softgel] 1 tab PO QPM 11/25 [History] Zolpidem [Ambien] 10 mg PO BEDTIME PRN 11/25/17 [History] Pantoprazole Sodium [Protonix] 40 mg PO QPM 01/08/18 [History] Acetaminophen [Tylenol] 650 mg PO Q6H PRN 01/27/18 [History] Albuterol [Ventolin HFA] 0 gm INH QID PRN inhaler 08/02/18 [Rx] Aspirin [Halfprin] 81 mg PO DAILY tab.ec 08/02/18 [Rx] Carvedilol [Coreg] 3.125 mg PO BIDMEALS tablet 08/02/18 [Rx] Citalopram [Citalopram HBr] 20 mg PO DAILY tablet 08/02/18 [Rx] Past Medical History HEENT History: Reports: Impaired Vision Cardiovascular History: Reports: CAD, High Cholesterol, Hypertension Other Cardiovascular History: 40% blockage per angio gram Respiratory History: Reports: Sleep Apnea Other Respiratory History: c-pap Gastrointestinal History: Reports: Cholelithiasis, Colon Polyp Musculoskeletal History: Reports: Arthritis, Other (See Below) Other Musculoskeletal History: DDD, herniated discs in back Psychiatric History: Reports: Depression Endocrine/Metabolic History: Reports: Obesity/BMI 30+ Hematologic History: Reports: Anemia, Iron Deficiency - Infectious Disease History Infectious Disease History: Reports: Chicken Pox, Mumps - Past Surgical History Head Surgeries/Procedures: Reports: None HEENT Surgical History: Reports: Tonsillectomy Cardiovascular Surgical History: Reports: Percutaneous Transluminal Angioplasty Respiratory Surgical History: Reports: None GI Surgical History: Reports: Appendectomy, Bariatric Procedure, Cholecystectomy , Colonoscopy, EGD, Esophageal Dilatation, Hernia Repair/Other Other GI Surgeries/Procedures: 2008 rny ulcer surgery January 10. rny REVISION JANUARY 2018 Endocrine Surgical History: Reports: None Musculoskeletal Surgical History: Reports: Carpal Tunnel, Shoulder Surgery Dermatological Surgical History: Reports: None Social & Family History - Family History Family Medical History: Noncontributory - Caffeine Use Caffeine Use: Reports: Coffee ED ROS GENERAL - Review of Systems Review Of Systems: See Below Constitutional: Reports: Weakness HEENT: Reports: No Symptoms Respiratory: Reports: No Symptoms Cardiovascular: Reports: No Symptoms Endocrine: Reports: No Symptoms GI/Abdominal: Reports: No Symptoms : Reports: No Symptoms Musculoskeletal: Reports: Other (laceration and pain in the rt metacarpal. ) Skin: Reports: No Symptoms ED EXAM, SKIN/RASH Exam: See Below Text/Narrative:: pt arrived with pain in the palm of the left hand after falling on a saw. He has a 1/4 inch laceration in the palm of the hand. He is having a fair amount of discomfort. Exam Limited By: No Limitations General Appearance: Alert, Anxious, Moderate Distress Extremities: Other ( 1/4 inch laceration deep to the sub q. The wound was infiltrated with lidocaine and the wound was closed with 2 stitches of 5-0 prolene. ) Neurological: Alert Course - Vital Signs Last Recorded V/S: Last Vital Signs Temp 35.3 C 12/25/18 21:24 Pulse 78 12/25/18 21:24 Resp 18 12/25/18 21:24 BP 134/90 12/25/18 21:24 Pulse Ox 97 12/25/18 21:24 - Orders/Labs/Meds Orders: Active Orders 24 hr Category Date Time Status Vaccines to be Administered [RC] PER UNIT ROUTINE Care 12/25/18 21:45 Active Meds: Medications Discontinued Medications Generic Name Dose Route Start Last Admin Trade Name Jeana PRN Reason Stop Dose Admin Hydrocodone Bitart/Acetaminophen 1 tab 12/25/18 22:08 Jenkinjones 325-5 Mg PO 12/25/18 22:09 ONETIME ONE Bacitracin 1 dose 12/25/18 21:06 12/25/18 21:55 Bacitracin Oint 1 Gm TOP 12/25/18 21:07 1 dose ONETIME ONE Administration Diphtheria/Tetanus/Acell Pertussis 0.5 ml 12/25/18 21:45 12/25/18 22:01 Adacel IM 12/25/18 21:46 0.5 ml .ONCE ONE Administration Lidocaine HCl 5 ml 12/25/18 21:06 12/25/18 21:55 Xylocaine-Mpf 1% INJECT 12/25/18 21:07 5 ml ONETIME ONE Administration - Re-Assessments/Exams Free Text/Narrative Re-Assessment/Exam: 12/25/18 22:25 Pt was given a tdap. Departure - Departure Time of Disposition: 22:06 Disposition: Home, Self-Care 01 Condition: Fair Clinical Impression: Laceration - Discharge Information Instructions: Laceration Care, Adult, [id number] Referrals: Glenn Enrique MD [Primary Care Provider] - Forms: ED Department Discharge Care Plan Goals: laceration in the palm of the left hand, keep dry, no further ointments, suture removal in 7-8 days, keflex 500mg tid, elevate, cool pack. norco 5/325 q6h prn for pain #4 - My Orders Last 24 Hours: My Active Orders 12/25/18 21:45 Vaccines to be Administered [RC] PER UNIT ROUTINE - Assessment/Plan Last 24 Hours: My Active Orders 12/25/18 21:45 Vaccines to be Administered [RC] PER UNIT ROUTINE
[2018-12-25 21:25] VITALS: BP 134/90
[2018-12-25] MEDS ORDERED: Diphtheria,Pertussis(Acell),Tetanus Vaccine 0.5 ML SDV IM ONE (21:45)
--- NOTE | 2018-12-25 21:47 | CRLCR ---
Indication: Pain Technique: Left hand 3 views. Comparison: None Findings: Bones: Alignment is normal. No fractures or bone lesions. Joint spaces: Unremarkable. Soft tissues: Unremarkable. Impression: Unremarkable left hand. No finding to explain pain in the 5th metacarpal. Dictated by Aniket Carrillo MD @ 12/25/2018 9:45:40 PM Dictated by: Aniket Carrillo MD @ 12/25/2018 21:45:48 (Electronically Signed)
[2018-12-25] MEDS ORDERED: Acetaminophen/HYDROcodone 325-5 MG Tab PO ONE (22:08)
== END 2018-12-25 22:25 | disposition home or self-care (01) ==
LOC: JP.ED 20:55
DX: S61.412A Laceration without foreign body of left hand, initial encounter (principal); E78.00 Pure hypercholesterolemia, unspecified; I10 Essential (primary) hypertension; I25.10 Atherosclerotic heart disease of native coronary artery without angina pectoris; F32.9 Major depressive disorder, single episode, unspecified; Z79.82 Long term (current) use of aspirin; W27.8XXA Contact with other nonpowered hand tool, initial encounter; Z88.8 Allergy status to other drugs, medicaments and biological substances; Z79.899 Other long term (current) drug therapy
CPT/HCPCS: 12001; 73130; 90471; 90715; 99283; A9270; J2001

== ENCOUNTER 2019-06-08 09:03 | Emergency (ER) | payer OTHER ==
[2019-06-08 10:07] VITALS: BP 146/94
--- NOTE | 2019-06-08 10:36 | EDM.PDOC ---
ED HPI GENERAL MEDICAL PROBLEM - General Chief Complaint: Lower Extremity Injury/Pain Stated Complaint: RIGHT FOOT IS PAINFUL Time Seen by Provider: 06/08/19 10:25 Source of Information: Reports: Patient History Limitations: Reports: No Limitations - History of Present Illness INITIAL COMMENTS - FREE TEXT/NARRATIVE: 54-year-old male slipped off a ladder last night injuring his right foot. He has pain at the base of the fifth metatarsal area with some slight swelling, pain with weightbearing. No other injury. Onset: Sudden Duration: Hour(s): (12 hours ago) Location: Reports: Lower Extremity, Right Associated Symptoms: Reports: No Other Symptoms foot; right Pain Score (Numeric/FACES): 3 - Related Data Allergies Allergy/AdvReac Type Severity Reaction Status Date / Time dexamethasone [From Decadron] Allergy Severe Difficulty Verified 06/08/19 09:52 Breathing gabapentin Allergy Depression Verified 06/08/19 09:52 Home Meds: Home Meds Multivitamin with Minerals [Multiple Vitamin] 1 tab PO QAM 05/02/15 [History] Nitroglycerin 0.4 mg SL ASDIRECTED PRN 10/11/16 [History] Calcium Carbonate/Vitamin D3 [Calcium 600-Vit D3 500 Softgel] 1 tab PO QPM 11/25 [History] Zolpidem [Ambien] 10 mg PO BEDTIME PRN 11/25/17 [History] Pantoprazole Sodium [Protonix] 40 mg PO QPM 01/08/18 [History] Acetaminophen [Tylenol] 650 mg PO Q6H PRN 01/27/18 [History] Albuterol [Ventolin HFA] 0 gm INH QID PRN inhaler 08/02/18 [Rx] Aspirin [Halfprin] 81 mg PO DAILY tab.ec 08/02/18 [Rx] Carvedilol [Coreg] 3.125 mg PO BIDMEALS tablet 08/02/18 [Rx] Citalopram [Citalopram HBr] 20 mg PO DAILY tablet 08/02/18 [Rx] ALPRAZolam [Alprazolam] 0.5 mg PO TID PRN 06/08/19 [History] DULoxetine HCl [Duloxetine HCl] 30 mg PO BID 06/08/19 [History] Past Medical History HEENT History: Reports: Impaired Vision Cardiovascular History: Reports: CAD, High Cholesterol, Hypertension Other Cardiovascular History: 40% blockage per angio gram Respiratory History: Reports: Sleep Apnea Other Respiratory History: c-pap Gastrointestinal History: Reports: Cholelithiasis, Colon Polyp Musculoskeletal History: Reports: Arthritis, Other (See Below) Other Musculoskeletal History: DDD, herniated discs in back Psychiatric History: Reports: Anxiety, Depression Endocrine/Metabolic History: Reports: Obesity/BMI 30+ Hematologic History: Reports: Anemia, Iron Deficiency - Infectious Disease History Infectious Disease History: Reports: Chicken Pox, Mumps - Past Surgical History Head Surgeries/Procedures: Reports: None HEENT Surgical History: Reports: Tonsillectomy Cardiovascular Surgical History: Reports: Percutaneous Transluminal Angioplasty Respiratory Surgical History: Reports: None GI Surgical History: Reports: Appendectomy, Bariatric Procedure, Cholecystectomy , Colonoscopy, EGD, Esophageal Dilatation, Hernia Repair/Other Other GI Surgeries/Procedures: 2008 rny ulcer surgery January 10. rny REVISION JANUARY 2018 Endocrine Surgical History: Reports: None Musculoskeletal Surgical History: Reports: Carpal Tunnel, Shoulder Surgery Dermatological Surgical History: Reports: None Social & Family History - Family History Family Medical History: Noncontributory - Tobacco Use Smoking Status *Q: Never Smoker - Caffeine Use Caffeine Use: Reports: Coffee, Soda - Recreational Drug Use Recreational Drug Use: No Review of Systems - Review of Systems Review Of Systems: See Below Constitutional: Denies: Fever Respiratory: Denies: Shortness of Breath Cardiovascular: Denies: Chest Pain GI/Abdominal: Denies: Abdominal Pain Skin: Denies: Bruising Neurological: Denies: Paresthesia ED EXAM, GENERAL - Physical Exam Exam: See Below Exam Limited By: No Limitations General Appearance: Alert, No Apparent Distress Respiratory/Chest: No Respiratory Distress Extremities: Other (Exam is otherwise limited to the right foot. He does have tenderness to palpation over the base of the fifth metatarsal, but no deformity , redness or significant erythema or bruising) Course - Vital Signs Last Recorded V/S: Last Vital Signs Temp 97.2 F 06/08/19 09:51 Pulse 88 06/08/19 09:51 Resp 16 06/08/19 09:51 BP 146/94 H 06/08/19 09:51 Pulse Ox 96 06/08/19 09:51 - Re-Assessments/Exams Free Text/Narrative Re-Assessment/Exam: 06/08/19 10:36 A right foot x-ray was obtained. 06/08/19 10:56 X-rays negative. A three-inch Konstantin wrap was applied to the foot and he has crutches at home. He was given 6 hydrocodone for breakthrough pain. Recheck in 3 -4 days if not improving. Departure - Departure Time of Disposition: 11:14 Disposition: Home, Self-Care 01 Clinical Impression: Contusion of right foot Qualifiers: Encounter type: initial encounter Qualified Code(s): S90.31XA - Contusion of right foot, initial encounter - Discharge Information Instructions: Contusion, [id number] Referrals: Glenn Enrique MD [Primary Care Provider] - Forms: ED Department Discharge Care Plan Goals: Wrap foot for comfort, increase activity as tolerated and use crutches initially if needed. Elevating the foot may help. Use hydrocodone for extra pain control if needed, and consider rechecking in 3-4 days if not improving satisfactorily.
--- NOTE | 2019-06-08 11:25 | CRLCR ---
INDICATION: Injury to right foot after stepping off ladder. Pain mostly near base of 5th toe. TECHNIQUE: Three views right foot. FINDINGS: Posterior calcaneal spurring. No acute fracture or dislocation in right foot. Mild osteopenia. Mild lateral subluxation of the right 5th toe at the level of the IP joint is likely chronic. Mild to moderate degenerative arthritis right foot greatest at the 1st MTP joint. Small accessory navicular bones. Remainder negative. Dictated by Jan Babb MD @ Jun 08 2019 11:22AM Signed by Dr. Jan Babb @ Jun 08 2019 11:23AM
== END 2019-06-08 11:14 | disposition home or self-care (01) ==
LOC: JP.ED 09:03
DX: S90.31XA Contusion of right foot, initial encounter (principal); E78.00 Pure hypercholesterolemia, unspecified; I25.10 Atherosclerotic heart disease of native coronary artery without angina pectoris; I10 Essential (primary) hypertension; F41.9 Anxiety disorder, unspecified; F32.9 Major depressive disorder, single episode, unspecified; Z88.8 Allergy status to other drugs, medicaments and biological substances; Z79.899 Other long term (current) drug therapy; Z79.82 Long term (current) use of aspirin; W18.49XA Other slipping, tripping and stumbling without falling, initial encounter
CPT/HCPCS: 73630-RT; 99283-25

== ENCOUNTER 2019-10-01 12:24 | Observation (INO) | payer OTHER ==
[2019-10-01] MEDS ORDERED: Bacitracin Oint 1 GM U/D Packet TOP ONE (13:14)
[2019-10-01] MEDS ORDERED: Lidocaine 1% 20 ML MDV INJECT ONE ×2 (13:14→14:32)
[2019-10-01] MEDS ORDERED: HYDROmorphone 1 MG/ML Syringe IVPUSH ONE (13:16)
--- NOTE | 2019-10-01 13:32 | CRLCT ---
INDICATION: Blow to the head. COMPARISON: None. TECHNIQUE: CT of the head without IV contrast. Coronal and sagittal reconstructions are provided. FINDINGS: No intracranial hemorrhage, mass effect, or evidence of acute infarct. No midline shift. No abnormal extra-axial fluid collections. Normal caliber ventricular system. Paranasal sinuses and mastoid air cells are clear. No acute fracture. Large soft tissue hematoma overlying the left aspect of the vertex. IMPRESSION: : 1. No acute intracranial findings. 2. Large soft tissue hematoma on the vertex scalp. Please note that all CT scans at this facility use dose modulation, iterative reconstruction, and/or weight-based dosing when appropriate to reduce radiation dose to as low as reasonably achievable. Dictated by Arpita Mcnair MD @ Oct 01 2019 1:27PM Signed by Dr. Arpita Mcnair @ Oct 01 2019 1:30PM
--- NOTE | 2019-10-01 13:39 | CRLCT ---
Indication: Fell down flight of stairs. Technique: CT cervical spine without IV contrast. Coronal and sagittal reconstructions. Comparison: None. Findings: No acute fracture or traumatic malalignment of the cervical spine. Normal vertebral body alignment. Mild spondylotic changes of the cervical spine including hypertrophic spurring, facet arthropathy, and disc space narrowing greatest at C5-C6. Mild neural foraminal narrowing on the left at C2-C3 and mild bilaterally at C6-C7. Posterior disc osteophyte complexes at C5-C6 and C6-C7 which cause mild spinal canal stenosis. Paraspinal soft tissues are unremarkable. Partially visualized soft tissue hematoma on the scalp posteriorly. Visualized intracranial contents are unremarkable. The mastoid air cells are clear. The thyroid gland is normal in appearance. The lung apices are clear. Impression: 1. No acute fracture or traumatic malalignment of the cervical spine. 2. Mild spondylotic changes of the cervical spine. 3. Partially visualized soft tissue hematoma on the scalp posteriorly. Please note that all CT scans at this facility use dose modulation, iterative reconstruction, and/or weight-based dosing when appropriate to reduce radiation dose to as low as reasonably achievable. Dictated by Arpita Mcnair MD @ Oct 01 2019 1:30PM Signed by Dr. Arpita Mcnair @ Oct 01 2019 1:38PM
[2019-10-01] MEDS ORDERED: Lidocaine 1% 20 ML MDV ONE (14:33)
[2019-10-01] MEDS ORDERED: cefTRIAXone 1 GM in Sodium Chloride 0.9% 50 ML IV ONE (16:11)
[2019-10-01] MEDS ORDERED: HYDROmorphone 0.5 MG/0.5 ML Syringe IVPUSH ONE (16:15)
--- NOTE | 2019-10-01 16:15 | EDM.PDOC ---
ED HPI GENERAL MEDICAL PROBLEM - General Chief Complaint: Laceration Stated Complaint: FELL VIA [facility] Time Seen by Provider: 10/01/19 12:35 Source of Information: Reports: Patient History Limitations: Reports: No Limitations - History of Present Illness INITIAL COMMENTS - FREE TEXT/NARRATIVE: pt arrived after falling about 10 feet down a stairs. He hit the back of his head and had a very large burst type laceration in the occipital area. He had alot of blood loss from the site. Onset: Today, Sudden Duration: Hour(s): Location: Reports: Head, Neck, Upper Extremity, Right Associated Symptoms: Reports: Headaches, Other (pt was vague at first regarding the incident. He was able to answer all questions when he was in the ambulance. ) Treatments PULMONARY NURSE PRACTITIONER: Reports: Other (see below) Other Treatments PULMONARY NURSE PRACTITIONER: Fentanyl 100mcg Zofran 4 mg head and right shoulder Pain Score (Numeric/FACES): 8 - Related Data Allergies Allergy/AdvReac Type Severity Reaction Status Date / Time dexamethasone [From Decadron] Allergy Severe Difficulty Verified 10/01/19 13:12 Breathing gabapentin Allergy Depression Verified 10/01/19 13:12 Home Meds: Home Meds Multivitamin with Minerals [Multiple Vitamin] 1 tab PO QAM 05/02/15 [History] Nitroglycerin 0.4 mg SL ASDIRECTED PRN 10/11/16 [History] Calcium Carbonate/Vitamin D3 [Calcium 600-Vit D3 500 Softgel] 1 tab PO QPM 11/25 [History] Zolpidem [Ambien] 10 mg PO BEDTIME PRN 11/25/17 [History] Pantoprazole Sodium [Protonix] 40 mg PO QPM 01/08/18 [History] Acetaminophen [Tylenol] 650 mg PO Q6H PRN 01/27/18 [History] Albuterol [Ventolin HFA] 0 gm INH QID PRN inhaler 08/02/18 [Rx] Aspirin [Halfprin] 81 mg PO DAILY tab.ec 08/02/18 [Rx] Citalopram [Citalopram HBr] 20 mg PO DAILY tablet 08/02/18 [Rx] carvediloL [Coreg] 3.125 mg PO BIDMEALS tablet 08/02/18 [Rx] ALPRAZolam [Alprazolam] 0.5 mg PO TID PRN 06/08/19 [History] DULoxetine HCl [Duloxetine HCl] 30 mg PO BID 06/08/19 [History] Hydrocodone/Acetaminophen [Hydrocodon-Acetaminophen 5-325] 1 tab PO Q4HR [History] Past Medical History HEENT History: Reports: Impaired Vision Cardiovascular History: Reports: CAD, High Cholesterol, Hypertension Other Cardiovascular History: 40% blockage per angio gram Respiratory History: Reports: Sleep Apnea Other Respiratory History: c-pap Gastrointestinal History: Reports: Cholelithiasis, Colon Polyp Musculoskeletal History: Reports: Arthritis, Other (See Below) Other Musculoskeletal History: DDD, herniated discs in back Psychiatric History: Reports: Anxiety, Depression Endocrine/Metabolic History: Reports: Obesity/BMI 30+ Hematologic History: Reports: Anemia, Iron Deficiency - Infectious Disease History Infectious Disease History: Reports: Chicken Pox, Mumps - Past Surgical History Head Surgeries/Procedures: Reports: None HEENT Surgical History: Reports: Tonsillectomy Cardiovascular Surgical History: Reports: Percutaneous Transluminal Angioplasty Respiratory Surgical History: Reports: None GI Surgical History: Reports: Appendectomy, Bariatric Procedure, Cholecystectomy , Colonoscopy, EGD, Esophageal Dilatation, Hernia Repair/Other Other GI Surgeries/Procedures: 2008 rny ulcer surgery January 10. rny REVISION JANUARY 2018 Endocrine Surgical History: Reports: None Musculoskeletal Surgical History: Reports: Carpal Tunnel, Shoulder Surgery Dermatological Surgical History: Reports: None Social & Family History - Family History Family Medical History: Noncontributory - Tobacco Use Smoking Status *Q: Never Smoker - Caffeine Use Caffeine Use: Reports: Coffee, Soda - Recreational Drug Use Recreational Drug Use: No ED ROS GENERAL - Review of Systems Review Of Systems: See Below Constitutional: Reports: No Symptoms HEENT: Reports: No Symptoms Respiratory: Reports: No Symptoms, Other (pt has a history of sleep apnea) Cardiovascular: Reports: No Symptoms Endocrine: Reports: No Symptoms GI/Abdominal: Reports: No Symptoms : Reports: No Symptoms Musculoskeletal: Reports: No Symptoms Skin: Reports: No Symptoms ED EXAM, SKIN/RASH Exam: See Below Text/Narrative:: pt arrived complaining of pain in the neck head and shoulder. Exam Limited By: No Limitations General Appearance: Alert, Anxious, Moderate Distress, Other (pupils equal and reactive. ) Ears: Normal TMs Nose: Normal Inspection Throat/Mouth: Normal Inspection Head: Other (pt has a 3.5 inch burst type laceration in the occipital area. ) Neck: Other ( tender in post cervical area. ) Respiratory/Chest: No Respiratory Distress Cardiovascular: Regular Rate, Rhythm GI/Abdominal: Soft, Non-Tender (Male) Exam: Deferred Rectal (Males) Exam: Deferred Back Exam: Normal Inspection Extremities: Other ( rt shoulder is tender. ) Neurological: Alert, Oriented, Normal Cognition, Other (pt does not have good recall of the incident. ) Psychiatric: Anxious Course - Vital Signs Last Recorded V/S: Last Vital Signs Temp 36.2 C 10/01/19 12:36 Pulse 88 10/01/19 12:36 Resp 16 10/01/19 12:36 BP 160/109 H 10/01/19 12:36 Pulse Ox 95 10/01/19 12:36 - Orders/Labs/Meds Orders: Active Orders 24 hr Category Date Time Status Shoulder Comp Rt [CR] Stat Exams 10/01/19 13:42 Taken ETOH [ETHANOL BLOOD MEDICAL] [CHEM] Stat Lab 10/01/19 16:12 Ordered HYDROmorphone [Dilaudid] Med 10/01/19 16:15 Once 0.5 mg IVPUSH ONETIME ONE cefTRIAXone [Rocephin] 1 gm Med 10/01/19 16:11 Ordered Sodium Chloride 0.9% [Normal Saline] 50 ml IV ONETIME Medication Orders Ceftriaxone Sodium 1 gm/ (Sodium Chloride) 50 mls @ 100 mls/hr IV ONETIME ONE Stop: 10/01/19 16:40 Labs: Laboratory Tests 10/01/19 10/01/19 Range/Units 13:52 13:52 WBC 10.3 (4.5-11.0) K/uL RBC 4.60 (4.30-5.90) M/uL Hgb 14.1 (12.0-15.0) g/dL Hct 43.8 (40.0-54.0) % MCV 95 (80-98) fL MCH 31 (27-31) pg MCHC 32 (32-36) % Plt Count 300 (150-400) K/uL Neut % (Auto) 69 H (36-66) % Lymph % (Auto) 23 L (24-44) % [place] % (Auto) 7 H (2-6) % Eos % (Auto) 1 L (2-4) % Baso % (Auto) 0 (0-1) % Sodium 137 L (140-148) mmol/L Potassium 4.8 (3.6-5.2) mmol/L Chloride 98 L (100-108) mmol/L Carbon Dioxide 29 (21-32) mmol/L Anion Gap 14.8 H (5.0-14.0) mmol/L BUN 15 (7-18) mg/dL Creatinine 1.2 (0.8-1.3) mg/dL Est Cr Clr Drug Dosing 78.61 mL/min Estimated GFR (MDRD) > 60 (>60) Glucose 145 H (74-106) mg/dL Calcium 8.4 L (8.5-10.1) mg/dL Total Bilirubin 0.3 (0.2-1.0) mg/dL AST 143 H D (15-37) U/L ALT 172 H (12-78) U/L Alkaline Phosphatase 111 (46-116) U/L Total Protein 7.4 (6.4-8.2) g/dL Albumin 3.7 (3.4-5.0) g/dL Globulin 3.7 H (2.3-3.5) g/dL Albumin/Globulin Ratio 1.0 L (1.2-2.2) Meds: Medications Generic Name Dose Route Start Last Admin Trade Name Freq PRN Reason Stop Dose Admin Ceftriaxone Sodium 1 gm/ 50 mls @ 100 mls/hr 10/01/19 16:11 Sodium Chloride IV 10/01/19 16:40 ONETIME ONE Discontinued Medications Generic Name Dose Route Start Last Admin Trade Name Jeana PRN Reason Stop Dose Admin Bacitracin 1 dose 10/01/19 13:14 10/01/19 13:27 Bacitracin Oint 1 Gm TOP 10/01/19 13:15 1 dose ONETIME ONE Administration Hydromorphone HCl 1 mg 10/01/19 13:16 10/01/19 13:24 Dilaudid IVPUSH 10/01/19 13:17 1 mg ONETIME ONE Administration Lidocaine HCl 20 ml 10/01/19 13:14 10/01/19 13:27 Xylocaine 1% INJECT 10/01/19 13:15 20 ml ONETIME ONE Administration Lidocaine HCl 20 ml 10/01/19 14:32 10/01/19 14:39 Xylocaine 1% INJECT 10/01/19 14:33 20 ml ONETIME ONE Administration Lidocaine HCl Confirm 10/01/19 14:33 Xylocaine 1% Administered 10/01/19 14:34 Dose 20 ml .ROUTE .[facility] ONE - Re-Assessments/Exams Free Text/Narrative Re-Assessment/Exam: 10/01/19 16:19 cat scan of the head and neck are neg. His shoulder-rt xray is neg. His scalp wound was about 3.5 inches burst type laceration. The hematoma was removed. It was infiltrated with lidocaine, closed with 3-. etholon there was alot of ozzing due to the tissue trauma. A pat drain was placed and a pressure dressing was applied. Departure - Departure Time of Disposition: 16:22 Disposition: Admitted As Inpatient 65 Condition: Fair Clinical Impression: Scalp laceration, Contusion of right shoulder, Neck sprain - Discharge Information Referrals: PCP,None [Primary Care Provider] - Forms: ED Department Discharge Care Plan Goals: admit to Dr Hair Sepsis Event Note - Evaluation Sepsis Screening Result: No Definite Risk - Focused Exam Vital Signs: Vital Signs Temp Pulse Resp BP Pulse Ox 10/01/19 12:36 36.2 C 88 16 160/109 H 95 10/01/19 12:32 95 10/01/19 12:30 36.2 C 88 16 160/109 H 88 L Date Exam was Performed: 10/01/19 Time Exam was Performed: 16:16 - My Orders Last 24 Hours: My Active Orders 10/01/19 13:42 Shoulder Comp Rt [CR] Stat 10/01/19 16:11 cefTRIAXone [Rocephin] 1 gm Sodium Chloride 0.9% [Normal Saline] 50 ml IV ONETIME 10/01/19 16:12 ETOH [ETHANOL BLOOD MEDICAL] [CHEM] Stat 10/01/19 16:15 HYDROmorphone [Dilaudid] 0.5 mg IVPUSH ONETIME ONE - Assessment/Plan Last 24 Hours: My Active Orders 10/01/19 13:42 Shoulder Comp Rt [CR] Stat 10/01/19 16:11 cefTRIAXone [Rocephin] 1 gm Sodium Chloride 0.9% [Normal Saline] 50 ml IV ONETIME 10/01/19 16:12 ETOH [ETHANOL BLOOD MEDICAL] [CHEM] Stat 10/01/19 16:15 HYDROmorphone [Dilaudid] 0.5 mg IVPUSH ONETIME ONE
--- NOTE | 2019-10-01 16:21 | PCM.HP.2 ---
H&P History of Present Illness - General Date of Service: 10/01/19 Admit Problem/Dx: Admission Diagnosis/Problem Admission Diagnosis/Problem Head injury without fracture of skull - History of Present Illness Initial Comments - Free Text/Narative: Mr. Tomlinson is a 54-year-old gentleman who was admitted through the emergency department to observation status following a traumatic head injury and a large scalp laceration. He was standing on a ladder changing a lightbulb when he fell off ladder and rolled down the stairs. He apparently did lose consciousness, he does not remember falling off the ladder but does recall waking up on the floor with several people standing over him. On evaluation in the emergency department CT scan of the head and cervical spine showed no evidence of fracture. He did have a large scalp laceration on the posterior skull that is been repaired by Dr. Chávez. Because a large amount of bleeding a drain has been left in overnight. head and right shoulder Pain Score (Numeric/FACES): 8 - Related Data Allergies/Adverse Reactions: Allergies Allergy/AdvReac Type Severity Reaction Status Date / Time dexamethasone [From Decadron] Allergy Severe Difficulty Verified 10/01/19 13:12 Breathing gabapentin Allergy Depression Verified 10/01/19 13:12 Home Medications: Home Meds Multivitamin with Minerals [Multiple Vitamin] 1 tab PO QAM 05/02/15 [History] Nitroglycerin 0.4 mg SL ASDIRECTED PRN 10/11/16 [History] Calcium Carbonate/Vitamin D3 [Calcium 600-Vit D3 500 Softgel] 1 tab PO QPM 11/25 [History] Zolpidem [Ambien] 10 mg PO BEDTIME PRN 11/25/17 [History] Pantoprazole Sodium [Protonix] 40 mg PO QPM 01/08/18 [History] Acetaminophen [Tylenol] 650 mg PO Q6H PRN 01/27/18 [History] Albuterol [Ventolin HFA] 0 gm INH QID PRN inhaler 08/02/18 [Rx] Aspirin [Halfprin] 81 mg PO DAILY tab.ec 08/02/18 [Rx] Citalopram [Citalopram HBr] 20 mg PO DAILY tablet 08/02/18 [Rx] carvediloL [Coreg] 3.125 mg PO BIDMEALS tablet 08/02/18 [Rx] ALPRAZolam [Alprazolam] 0.5 mg PO TID PRN 06/08/19 [History] DULoxetine HCl [Duloxetine HCl] 30 mg PO BID 06/08/19 [History] Hydrocodone/Acetaminophen [Hydrocodon-Acetaminophen 5-325] 1 tab PO Q4HR [History] Past Medical History HEENT History: Reports: Impaired Vision Cardiovascular History: Reports: CAD, High Cholesterol, Hypertension Other Cardiovascular History: 40% blockage per angio gram Respiratory History: Reports: Sleep Apnea Other Respiratory History: c-pap Gastrointestinal History: Reports: Cholelithiasis, Colon Polyp Musculoskeletal History: Reports: Arthritis, Other (See Below) Other Musculoskeletal History: DDD, herniated discs in back Psychiatric History: Reports: Anxiety, Depression Endocrine/Metabolic History: Reports: Obesity/BMI 30+ Hematologic History: Reports: Anemia, Iron Deficiency - Infectious Disease History Infectious Disease History: Reports: Chicken Pox, Mumps - Past Surgical History Head Surgeries/Procedures: Reports: None HEENT Surgical History: Reports: Tonsillectomy Cardiovascular Surgical History: Reports: Percutaneous Transluminal Angioplasty Respiratory Surgical History: Reports: None GI Surgical History: Reports: Appendectomy, Bariatric Procedure, Cholecystectomy , Colonoscopy, EGD, Esophageal Dilatation, Hernia Repair/Other Other GI Surgeries/Procedures: 2008 rny ulcer surgery January 10. rny REVISION JANUARY 2018 Endocrine Surgical History: Reports: None Musculoskeletal Surgical History: Reports: Carpal Tunnel, Shoulder Surgery Dermatological Surgical History: Reports: None Social & Family History - Family History Family Medical History: Noncontributory - Tobacco Use Smoking Status *Q: Never Smoker - Caffeine Use Caffeine Use: Reports: Coffee, Soda - Recreational Drug Use Recreational Drug Use: No H&P Review of Systems - Review of Systems: Review Of Systems: See Below General: Reports: No Symptoms HEENT: Reports: Headaches, Other (Scalp laceration) Pulmonary: Reports: No Symptoms Cardiovascular: Reports: No Symptoms Gastrointestinal: Reports: No Symptoms Genitourinary: Reports: No Symptoms Musculoskeletal: Reports: Shoulder Pain, Muscle Pain, Muscle Stiffness. Denies : Neck Pain, Arm Pain, Back Pain, Leg Pain Skin: Reports: No Symptoms Psychiatric: Reports: No Symptoms Neurological: Reports: No Symptoms Hematologic/Lymphatic: Reports: No Symptoms Immunologic: Reports: No Symptoms Exam - Exam Exam: See Below - Vital Signs Vital Signs: Last Vital Signs Temp 97.2 F 10/01/19 12:36 Pulse 88 10/01/19 12:36 Resp 16 10/01/19 12:36 BP 160/109 H 10/01/19 12:36 Pulse Ox 95 10/01/19 12:36 Weight: 260 lb - Exam Quality Assessment: DVT Prophylaxis General: Alert, Oriented, Cooperative, Moderate Distress HEENT: PERRLA, EACs Clear, Hearing Intact, Mucosa Moist & [place], Normal Nasal Septum, Posterior Pharynx Clear Neck: Supple, Trachea Midline, +2 Carotid Pulse wo Bruit Lungs: Clear to Auscultation, Normal Respiratory Effort Cardiovascular: Regular Rate, Regular Rhythm, Normal S1, Normal S2. No: Systolic Murmur, Diastolic Murmur GI/Abdominal Exam: Soft, Non-Tender, No Organomegaly, No Distention Back Exam: Normal Inspection, Full Range of Motion Extremities: Normal Inspection, Normal Range of Motion, No Pedal Edema Skin: Warm, Dry Neurological: Cranial Nerves Intact, Strength Equal Bilateral, Normal Speech, Normal Tone, Sensation Intact. No: Focal Deficit Neuro Extensive - Mental Status: Alert, Oriented x3, Normal Mood/Affect, Normal Cognition, Memory Intact - Patient Data Lab Results Last 24 hrs: Laboratory Results - last 24 hr 10/01/19 10/01/19 Range/Units 13:52 13:52 WBC 10.3 (4.5-11.0) K/uL RBC 4.60 (4.30-5.90) M/uL Hgb 14.1 (12.0-15.0) g/dL Hct 43.8 (40.0-54.0) % MCV 95 (80-98) fL MCH 31 (27-31) pg MCHC 32 (32-36) % Plt Count 300 (150-400) K/uL Neut % (Auto) 69 H (36-66) % Lymph % (Auto) 23 L (24-44) % [place] % (Auto) 7 H (2-6) % Eos % (Auto) 1 L (2-4) % Baso % (Auto) 0 (0-1) % Sodium 137 L (140-148) mmol/L Potassium 4.8 (3.6-5.2) mmol/L Chloride 98 L (100-108) mmol/L Carbon Dioxide 29 (21-32) mmol/L Anion Gap 14.8 H (5.0-14.0) mmol/L BUN 15 (7-18) mg/dL Creatinine 1.2 (0.8-1.3) mg/dL Est Cr Clr Drug Dosing 78.61 mL/min Estimated GFR (MDRD) > 60 (>60) Glucose 145 H (74-106) mg/dL Calcium 8.4 L (8.5-10.1) mg/dL Total Bilirubin 0.3 (0.2-1.0) mg/dL AST 143 H D (15-37) U/L ALT 172 H (12-78) U/L Alkaline Phosphatase 111 (46-116) U/L Total Protein 7.4 (6.4-8.2) g/dL Albumin 3.7 (3.4-5.0) g/dL Globulin 3.7 H (2.3-3.5) g/dL Albumin/Globulin Ratio 1.0 L (1.2-2.2) Result Diagrams: 10/01/19 13:52 10/01/19 13:52 Sepsis Event Note - Evaluation Sepsis Screening Result: No Definite Risk - Focused Exam Vital Signs: Vital Signs Temp Pulse Resp BP Pulse Ox 10/01/19 12:36 97.2 F 88 16 160/109 H 95 10/01/19 12:32 95 10/01/19 12:30 97.2 F 88 16 160/109 H 88 L Date Exam was Performed: 10/01/19 Time Exam was Performed: 17:15 *Q Meaningful Use (ADM) - VTE *Q VTE Pharmacological Contraindications *Q: Active Hemorrhage - VTE Risk Assess *Q Each Risk Factor Represents 1 Point: Age 41 - 59 years, Obesity ( BMI > 25 kg/m2 ) Total Score 1 Point Risk Factors: 2 Each Risk Factor Represents 2 Points: None Total Score 2 Point Risk Factors: 0 Each Risk Factor Represents 3 Points: None Total Score 3 Point Risk Factors: 0 Each Risk Factor Represents 5 Points: None Total Score 5 Point Risk Factors: 0 Venous Thromboembolism Risk Factor Score *Q: 2 Problem List Initiated/Reviewed/Updated: Yes Orders Last 24hrs: Active Orders 24 hr Category Date Time Status Patient Status Manage Transfer [TRANSFER] Routine ADT 10/01/19 16:15 Ordered Shoulder Comp Rt [CR] Stat Exams 10/01/19 13:42 Taken ETOH [ETHANOL BLOOD MEDICAL] [CHEM] Stat Lab 10/01/19 13:50 Received cefTRIAXone [Rocephin] 1 gm Med 10/01/19 16:11 Active Sodium Chloride 0.9% [Normal Saline] 50 ml IV ONETIME Resuscitation Status Routine Resus Stat 10/01/19 16:16 Ordered Medication Orders Ceftriaxone Sodium 1 gm/ (Sodium Chloride) 50 mls @ 100 mls/hr IV ONETIME ONE Stop: 10/01/19 16:40 Assessment/Plan Comment:: ASSESSMENT AND PLAN TRAUMATIC HEAD INJURY WITH LACERATION-be admitted to observation status for monitoring overnight and reassessment of his laceration in a.m. -Neurochecks every 4 hours -Assess wound and remove drain in a.m. -Cephalexin 500 mg p.o. every 6 hours MAINTENANCE ISSUES -DVT prophylaxis; SCUDs, anticoagulation contraindicated because of wound and bleeding -GI prophylaxis; not indicated -Pena catheter; not indicated -Nutrition; regular diet -Nicotine dependence; not required CODE STATUS-FULL CODE ADMISSION STATUS-this patient will be admitted to observation status, expect no more than a one night hospital stay for evaluation and management of problems as outlined above. DISPOSITION-anticipate discharge to home after the hospital stay. PRIMARY CARE PROVIDER- - Mortality Measure Prognosis:: Good
--- NOTE | 2019-10-01 16:32 | CRLCR ---
Indication: Pain in shoulder. Technique: Right shoulder 3 views. Comparison: None. Findings: No acute fracture or dislocation. Mild degenerative changes of the glenohumeral joint. Moderate degenerative changes of the acromioclavicular joint. Calcified granuloma right midlung. Soft tissues are unremarkable. Impression: No acute findings. Dictated by Arpita Mcnair MD @ Oct 01 2019 4:29PM Signed by Dr. Arpita Mcnair @ Oct 01 2019 4:31PM
[2019-10-01] MEDS ORDERED: ALPRAZolam 0.5 MG Tab PO PRN (17:23)
[2019-10-01] MEDS ORDERED: Ondansetron 4 MG/2 ML SDV IV PRN (17:23)
[2019-10-01] MEDS ORDERED: Polyethylene Glycol 3350 Powder 17 GM Packet PO PRN (17:23)
[2019-10-01] MEDS ORDERED: Pantoprazole 40 MG Tab.CR PO SCH (17:23)
[2019-10-01] MEDS ORDERED: Sodium Chloride 0.9% 10 ML Syringe FLUSH PRN (17:23)
[2019-10-01] MEDS ORDERED: Ondansetron 4 MG/2 ML SDV IVPUSH ONE (17:42)
[2019-10-01] MEDS ORDERED: Sodium Chloride 0.9% 1,000 ML IV SCH (17:45)
[2019-10-01] MEDS: oxyCODONE 5 MG Tab PO PRN ×2 (18:36→22:49)
[2019-10-01] MEDS: Lactobacillus Rhamnosus GG (Probiotic) Cap PO SCH ×2 (19:31→21:00)
[2019-10-01] MEDS: Sodium Chloride 0.9% 1,000 ML IV SCH (19:33)
[2019-10-01] MEDS: Carvedilol 3.125 MG Tab PO SCH (19:33)
[2019-10-01] MEDS: DULoxetine 30 MG Cap PO SCH (20:59)
[2019-10-01] MEDS: Cephalexin 250 MG Cap PO SCH (21:00)
[2019-10-02] MEDS: Acetaminophen 325 MG Tab PO PRN ×3 (00:48→08:46)
[2019-10-02] MEDS: Cephalexin 250 MG Cap PO SCH ×2 (03:14→09:58)
[2019-10-02] MEDS: oxyCODONE 5 MG Tab PO PRN ×2 (03:22→07:37)
[2019-10-02] MEDS: Sodium Chloride 0.9% 1,000 ML IV SCH (03:34)
[2019-10-02] MEDS: Lactobacillus Rhamnosus GG (Probiotic) Cap PO SCH (08:41)
[2019-10-02] MEDS: Carvedilol 3.125 MG Tab PO SCH (08:42)
[2019-10-02] MEDS: DULoxetine 30 MG Cap PO SCH (08:42)
[2019-10-02] MEDS ORDERED: Citalopram 20 MG Tab PO SCH (09:00)
--- NOTE | 2019-10-02 10:18 | PCM.DCSUM1 ---
Discharge Summary - Hospital Course Brief History: Mr. Tomlinson is a 54-year-old gentleman who was admitted to observation status through the emergency department for observation of head wound and traumatic head injury. - Discharge Data Discharge Date: 10/02/19 Discharge Disposition: Home, Self-Care 01 Condition: Fair - Referral to Home Health Primary Care Physician: PCP None - Discharge Diagnosis/Problem(s) (1) Head injury due to trauma SNOMED Code(s): 98675639 ICD Code: S09.90XA - UNSPECIFIED INJURY OF HEAD, INITIAL ENCOUNTER Status: Acute Current Visit: Yes (2) Scalp laceration SNOMED Code(s): 514922956 ICD Code: S01.01XA - LACERATION WITHOUT FOREIGN BODY OF SCALP, INITIAL ENCOUNTER Status: Acute Current Visit: Yes (3) Contusion of right shoulder SNOMED Code(s): 51371015 ICD Code: S40.011A - CONTUSION OF RIGHT SHOULDER, INITIAL ENCOUNTER Status : Acute Current Visit: Yes (4) Neck sprain SNOMED Code(s): 262987276 ICD Code: S13.9XXA - SPRAIN OF JOINTS AND LIGAMENTS OF UNSP PARTS OF NECK, INIT Status: Acute Current Visit: Yes (5) Opioid use agreement exists SNOMED Code(s): 054547117, 018372285 ICD Code: Z79.891 - SNF (CURRENT) USE OF OPIATE ANALGESIC Status: Chronic Current Visit: No - Patient Summary/Data Hospital Course: Mr. Tomlinson is a 54-year-old gentleman who was admitted through the emergency department to observation status following a traumatic head injury and a large scalp laceration. He was standing on a ladder changing a lightbulb when he fell off ladder and rolled down the stairs. He apparently did lose consciousness, he does not remember falling off the ladder but does recall waking up on the floor with several people standing over him. On evaluation in the emergency department CT scan of the head and cervical spine showed no evidence of fracture. He did have a large scalp laceration on the posterior skull that is been repaired by Dr. Chávez. Because a large amount of bleeding a drain has been left in overnight. Prior to transfer to the medical surgical floor he did experience a syncopal episode which was felt to be vagally mediated. He was placed on continuous pulse oximetry as well as telemetry monitoring overnight and remained hemodynamically stable. On the morning of discharge he reported ongoing muscular skeletal pain and headache. The drain had come out overnight and the wound was found to be intact with no evidence of significant active bleeding. He was neurologically intact and able to ambulate in the hallways without difficulty. He is instructed to keep the wound dry and to avoid showering for 48 hours. He will be discharged home on oral antibiotic therapy for 1 week. Return immediately to the emergency department if he has significant bleeding from the wound or notes any new neurologic symptoms. He can return to work on October 05. Follow-up appointment will be scheduled with his primary care provider within 1 week. Activity will be as tolerated and he will resume his usual diet. - Patient Instructions Diet: Usual Diet as Tolerated Activity: As Tolerated Showering/Bathing: No Showering (For 48 hours) Wound/Incision Care: Keep Operative Site/Wound Site Clean and Dry Other/Special Instructions: Schedule follow-up appointment with primary care provider early next week - Discharge Plan *PRESCRIPTION DRUG MONITORING PROGRAM REVIEWED*: Yes *COPY OF PRESCRIPTION DRUG MONITORING REPORT IN PATIENT LUIS ENRIQUE: Yes Prescriptions/Med Rec: cephALEXin [Keflex] 500 mg PO Q6HR #24 cap Lactobacillus Rhamnosus GG [Culturelle] 1 cap PO BID #60 cap Home Medications: Home Meds Multivitamin with Minerals [Multiple Vitamin] 1 tab PO QAM 05/02/15 [History] Nitroglycerin 0.4 mg SL ASDIRECTED PRN 10/11/16 [History] Calcium Carbonate/Vitamin D3 [Calcium 600-Vit D3 500 Softgel] 1 tab PO QPM 11/25 [History] Zolpidem [Ambien] 10 mg PO BEDTIME PRN 11/25/17 [History] Pantoprazole Sodium [Protonix] 40 mg PO QPM 01/08/18 [History] Acetaminophen [Tylenol] 650 mg PO Q6H PRN 01/27/18 [History] Albuterol [Ventolin HFA] 0 gm INH QID PRN inhaler 08/02/18 [Rx] Aspirin [Halfprin] 81 mg PO DAILY tab.ec 08/02/18 [Rx] Citalopram [Citalopram HBr] 20 mg PO DAILY tablet 08/02/18 [Rx] carvediloL [Coreg] 3.125 mg PO BIDMEALS tablet 08/02/18 [Rx] ALPRAZolam [Alprazolam] 0.5 mg PO TID PRN 06/08/19 [History] DULoxetine HCl [Duloxetine HCl] 30 mg PO BID 06/08/19 [History] Hydrocodone/Acetaminophen [Hydrocodon-Acetaminophen 5-325] 1 tab PO Q4HR [History] Lactobacillus Rhamnosus GG [Culturelle] 1 cap PO BID #60 cap 10/02/19 [Rx] cephALEXin [Keflex] 500 mg PO Q6HR #24 cap 10/02/19 [Rx] Referrals: Glenn Enrique MD [Physician] - 10/06/19 1:30 pm - Discharge Summary/Plan Comment DC Time >30 min.: No - Patient Data Vitals - Most Recent: Last Vital Signs Temp 97.7 F 10/02/19 08:00 Pulse 88 10/02/19 08:42 Resp 16 10/02/19 08:00 BP 142/87 H 10/02/19 08:42 Pulse Ox 96 10/02/19 08:00 Weight - Most Recent: 260 lb I&O - Last 24 hours: Intake & Output 10/01/19 10/02/19 10/02/19 22:59 06:59 14:59 Intake Total 1700 2425 580 Output Total 500 350 300 Balance 1200 2075 280 Lab Results - Last 24 hrs: Laboratory Results - last 24 hr 10/01/19 10/01/19 10/01/19 Range/Units 13:50 13:52 13:52 WBC 10.3 (4.5-11.0) K/uL RBC 4.60 (4.30-5.90) M/uL Hgb 14.1 (12.0-15.0) g/dL Hct 43.8 (40.0-54.0) % MCV 95 (80-98) fL MCH 31 (27-31) pg MCHC 32 (32-36) % Plt Count 300 (150-400) K/uL Neut % (Auto) 69 H (36-66) % Lymph % (Auto) 23 L (24-44) % [place] % (Auto) 7 H (2-6) % Eos % (Auto) 1 L (2-4) % Baso % (Auto) 0 (0-1) % Sodium 137 L (140-148) mmol/L Potassium 4.8 (3.6-5.2) mmol/L Chloride 98 L (100-108) mmol/L Carbon Dioxide 29 (21-32) mmol/L Anion Gap 14.8 H (5.0-14.0) mmol/L BUN 15 (7-18) mg/dL Creatinine 1.2 (0.8-1.3) mg/dL Est Cr Clr Drug Dosing 78.61 mL/min Estimated GFR (MDRD) > 60 (>60) Glucose 145 H (74-106) mg/dL Calcium 8.4 L (8.5-10.1) mg/dL Total Bilirubin 0.3 (0.2-1.0) mg/dL AST 143 H D (15-37) U/L ALT 172 H (12-78) U/L Alkaline Phosphatase 111 (46-116) U/L Total Protein 7.4 (6.4-8.2) g/dL Albumin 3.7 (3.4-5.0) g/dL Globulin 3.7 H (2.3-3.5) g/dL Albumin/Globulin Ratio 1.0 L (1.2-2.2) Ethyl Alcohol 124 mg/dL 10/01/19 10/02/19 10/02/19 Range/Units 17:46 05:35 05:35 WBC 7.3 (4.5-11.0) K/uL RBC 3.56 L (4.30-5.90) M/uL Hgb 14.0 11.0 L D (12.0-15.0) g/dL Hct 34.1 L (40.0-54.0) % MCV 96 (80-98) fL MCH 31 (27-31) pg MCHC 32 (32-36) % Plt Count 216 (150-400) K/uL Neut % (Auto) 59 (36-66) % Lymph % (Auto) 31 (24-44) % [place] % (Auto) 10 H (2-6) % Eos % (Auto) 0 L (2-4) % Baso % (Auto) 0 (0-1) % Sodium 134 L (140-148) mmol/L Potassium 3.8 (3.6-5.2) mmol/L Chloride 98 L (100-108) mmol/L Carbon Dioxide 27 (21-32) mmol/L Anion Gap 12.8 (5.0-14.0) mmol/L BUN 14 (7-18) mg/dL Creatinine 1.1 (0.8-1.3) mg/dL Est Cr Clr Drug Dosing 85.75 mL/min Estimated GFR (MDRD) > 60 (>60) Glucose 112 H (74-106) mg/dL Calcium 7.7 L (8.5-10.1) mg/dL Total Bilirubin (0.2-1.0) mg/dL AST (15-37) U/L ALT (12-78) U/L Alkaline Phosphatase (46-116) U/L Total Protein (6.4-8.2) g/dL Albumin (3.4-5.0) g/dL Globulin (2.3-3.5) g/dL Albumin/Globulin Ratio (1.2-2.2) Ethyl Alcohol mg/dL Med Orders - Current: Current Medications Acetaminophen (Tylenol) 650 mg PO Q4H PRN PRN Reason: Pain (Mild 1-3)/fever Last Admin: 10/02/19 08:46 Dose: 650 mg Alprazolam (Xanax) 0.5 mg PO TID PRN PRN Reason: Anxiety Last Admin: 10/02/19 00:10 Dose: 0.5 mg Carvedilol (Coreg) 3.125 mg PO BIDMEALS [facility] Last Admin: 10/02/19 08:42 Dose: 3.125 mg Cephalexin (Keflex) 500 mg PO Q6HR [facility] Last Admin: 10/02/19 09:58 Dose: 500 mg Citalopram Hydrobromide (Celexa) 20 mg PO DAILY [facility] Last Admin: 10/02/19 09:57 Dose: 20 mg Duloxetine HCl (Cymbalta) 30 mg PO BID [facility] Last Admin: 10/02/19 08:42 Dose: 30 mg Sodium Chloride (Normal Saline) 1,000 mls @ 125 mls/hr IV ASDIRECTED [facility] Last Admin: 10/02/19 03:34 Dose: 125 mls/hr Lactobacillus Rhamnosus (Culturelle) 1 cap PO BID [facility] Last Admin: 10/02/19 08:41 Dose: 1 cap Ondansetron HCl (Zofran) 4 mg IV Q4H PRN PRN Reason: Nausea/Vomiting Oxycodone HCl (Oxycodone) 5 mg PO Q4H PRN PRN Reason: Pain (moderate 4-6) Last Admin: 10/02/19 07:37 Dose: 5 mg Pantoprazole Sodium (Protonix) 40 mg PO QPM [facility] Last Admin: 10/01/19 19:26 Dose: 40 mg Polyethylene Glycol (Miralax) 17 gm PO DAILY PRN PRN Reason: Constipation Sodium Chloride (Saline Flush) 10 ml FLUSH ASDIRECTED PRN PRN Reason: Keep Vein Open Discontinued Medications Bacitracin (Bacitracin Oint 1 Gm) 1 dose TOP ONETIME ONE Stop: 10/01/19 13:15 Last Admin: 10/01/19 13:27 Dose: 1 dose Hydromorphone HCl (Dilaudid) 1 mg IVPUSH ONETIME ONE Stop: 10/01/19 13:17 Last Admin: 10/01/19 13:24 Dose: 1 mg Hydromorphone HCl (Dilaudid) 0.5 mg IVPUSH ONETIME ONE Stop: 10/01/19 16:16 Last Admin: 10/01/19 16:31 Dose: 0.5 mg Ceftriaxone Sodium 1 gm/ (Sodium Chloride) 50 mls @ 100 mls/hr IV ONETIME ONE Stop: 10/01/19 16:40 Last Admin: 10/01/19 16:32 Dose: 100 mls/hr Sodium Chloride (Normal Saline) 1,000 mls @ 999 mls/hr IV ASDIRECTED [facility] Last Admin: 10/01/19 18:21 Dose: 999 mls/hr Lidocaine HCl (Xylocaine 1%) 20 ml INJECT ONETIME ONE Stop: 10/01/19 13:15 Last Admin: 10/01/19 13:27 Dose: 20 ml Lidocaine HCl (Xylocaine 1%) 20 ml INJECT ONETIME ONE Stop: 10/01/19 14:33 Last Admin: 10/01/19 14:39 Dose: 20 ml Lidocaine HCl (Xylocaine 1%) Confirm Administered Dose 20 ml .ROUTE .STK-MED ONE Stop: 10/01/19 14:34 Last Admin: 10/01/19 20:29 Dose: Not Given Ondansetron HCl (Zofran) 4 mg IVPUSH ONETIME ONE Stop: 10/01/19 17:43 Last Admin: 10/01/19 19:34 Dose: 4 mg - Exam General: Reports: Alert, Oriented, Cooperative, Mild Distress Lungs: Reports: Clear to Auscultation, Normal Respiratory Effort Cardiovascular: Reports: Regular Rate, Regular Rhythm, No Murmurs GI/Abdominal Exam: Soft, Non-Tender, No Organomegaly, No Distention Extremities: Non-Tender, No Pedal Edema Skin: Reports: Other (Scalp laceration with underlying hematoma, intact with no ongoing bleeding.) Neurological: Reports: No New Focal Deficit *Q Meaningful Use (DIS) - VTE *Q VTE Pharmacological Contraindications *Q: Active Hemorrhage
[2019-10-02 10:49] VITALS: BP 145/100; PULSE 91
== END 2019-10-02 11:44 | disposition home or self-care (01) ==
LOC: JP.ED 12:24 → JP.MS 16:15
PROVIDERS: ADMIT Hospitalist; ATTEND Hospitalist
DX: S01.01XA Laceration without foreign body of scalp, initial encounter (principal); S40.011A Contusion of right shoulder, initial encounter; S13.9XXA Sprain of joints and ligaments of unspecified parts of neck, initial encounter; I25.10 Atherosclerotic heart disease of native coronary artery without angina pectoris; E78.00 Pure hypercholesterolemia, unspecified; I10 Essential (primary) hypertension; G47.33 Obstructive sleep apnea (adult) (pediatric); M19.90 Unspecified osteoarthritis, unspecified site; F41.9 Anxiety disorder, unspecified; F32.9 Major depressive disorder, single episode, unspecified; E66.9 Obesity, unspecified; W11.XXXA Fall on and from ladder, initial encounter; Z79.891 Long term (current) use of opiate analgesic; Z79.899 Other long term (current) drug therapy; Z88.8 Allergy status to other drugs, medicaments and biological substances; Z99.89 Dependence on other enabling machines and devices
CPT/HCPCS: 36415; 70450; 72125; 73030; 80048; 80053; 80320; 85018; 85025; A9270; J0696; J1170; J2001; J2405; J7030; J7050; 12002; 96374; 99285-25; G0480

== ENCOUNTER 2019-12-03 05:49 | Emergency (ER) | payer OTHER ==
[2019-12-03 06:08] VITALS: PULSE 91
[2019-12-03] MEDS ORDERED: Ketorolac 60 MG/2 ML SDV IM ONE (06:30)
[2019-12-03] MEDS ORDERED: Ketorolac 60 MG/2 ML SDV ONE (06:36)
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
[2019-12-03] MEDS ORDERED: Acetaminophen 500 MG Tab PO ONE (07:01)
[2019-12-03] MEDS ORDERED: Acetaminophen 500 MG Tab ONE (07:07)
[2019-12-03 07:11] VITALS: BP 126/78
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
== END 2019-12-03 08:14 | disposition home or self-care (01) ==
LOC: JP.ED 05:49
DX: S70.01XA Contusion of right hip, initial encounter (principal); I10 Essential (primary) hypertension; E78.00 Pure hypercholesterolemia, unspecified; I25.10 Atherosclerotic heart disease of native coronary artery without angina pectoris; F41.9 Anxiety disorder, unspecified; F32.9 Major depressive disorder, single episode, unspecified; E66.9 Obesity, unspecified; Z68.35 Body mass index [BMI] 35.0-35.9, adult; Z79.899 Other long term (current) drug therapy; Z79.82 Long term (current) use of aspirin; Z88.8 Allergy status to other drugs, medicaments and biological substances; V89.2XXA Person injured in unspecified motor-vehicle accident, traffic, initial encounter
CPT/HCPCS: 73502; 96372; 99283; 99284; A9270; J1885

== ENCOUNTER 2019-12-04 08:05 | Emergency (ER) | payer OTHER ==
[2019-12-04 08:26] VITALS: BP 136/92; PULSE 86
[2019-12-04] MEDS ORDERED: Ketorolac 60 MG/2 ML SDV IM ONE (08:53)
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
--- NOTE | 2019-12-04 09:58 | CR ---
Ribs 2V w Chest Rt CLINICAL HISTORY: Right rib pain FINDINGS: There is a minimally displaced fracture of the distal aspect of the right 10th rib. Lungs are clear. There are no pleural effusions pleural thickening or pneumothorax Impression: Minimally displaced 10th rib fracture
--- NOTE | 2019-12-04 09:59 | CR ---
Lumbar Spine Min 4V CLINICAL HISTORY: Back pain FINDINGS: The MR vertebral body heights are maintained. There is some mild compression deformities of T10 and T11. These are likely of remote chronology. There is disc space narrowing at L5-S1. There is mild diffuse spondylosis. Alignment is maintained from flexion through extension. There is some osteoarthropathy in the lower lumbar facets IMPRESSION: Degenerative disc changes Facet osteoarthropathy in the low lumbar spine Mild compression deformities of T10 and T11 likely of remote chronology
== END 2019-12-04 10:41 | disposition home or self-care (01) ==
LOC: JP.ED 08:05
DX: S22.31XA Fracture of one rib, right side, initial encounter for closed fracture (principal); I10 Essential (primary) hypertension; E78.00 Pure hypercholesterolemia, unspecified; F41.9 Anxiety disorder, unspecified; F32.9 Major depressive disorder, single episode, unspecified; E66.9 Obesity, unspecified; Z79.82 Long term (current) use of aspirin; Z88.8 Allergy status to other drugs, medicaments and biological substances; Z79.899 Other long term (current) drug therapy; X58.XXXA Exposure to other specified factors, initial encounter
CPT/HCPCS: 36415; 71101; 72110; 80053; 80307; 81001; 83550; 85025; 96372; 99284; J1885

== ENCOUNTER 2019-12-11 06:55 | Emergency (ER) | payer OTHER ==
[2019-12-11 07:12] VITALS: BP 167/103; PULSE 126
[2019-12-11] MEDS ORDERED: Acetaminophen 500 MG Tab PO ONE (07:21)
--- NOTE | 2019-12-11 07:44 | EDM.PDOC ---
ED HPI GENERAL MEDICAL PROBLEM - General Chief Complaint: Fever Stated Complaint: COUGH TIGHTNESS IN CHEST Time Seen by Provider: 12/11/19 07:25 Source of Information: Reports: Patient, Old Records, RN History Limitations: Reports: No Limitations - History of Present Illness INITIAL COMMENTS - FREE TEXT/NARRATIVE: 54 yo male presents with a productive cough, fever and mild SOB. No treatment before arrival. Is a nonsmoker. Did have a flu vaccine. Sx's for a week, worse today with new onset of cough productivity and SOB. Has not been seen before today. 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) - Related Data Allergies Allergy/AdvReac Type Severity Reaction Status Date / Time dexamethasone [From Decadron] Allergy Severe Difficulty Verified 12/04/19 08:31 Breathing gabapentin Allergy Depression Verified 12/04/19 08:31 Home Meds: Home Meds Multivitamin with Minerals [Multiple Vitamin] 1 tab PO QAM 05/02/15 [History] Nitroglycerin 0.4 mg SL ASDIRECTED PRN 10/11/16 [History] Calcium Carbonate/Vitamin D3 [Calcium 600-Vit D3 500 Softgel] 1 tab PO QPM 11/25 [History] Zolpidem [Ambien] 10 mg PO BEDTIME PRN 11/25/17 [History] Pantoprazole Sodium [Protonix] 40 mg PO QPM 01/08/18 [History] Acetaminophen [Tylenol] 650 mg PO Q6H PRN 01/27/18 [History] Albuterol [Ventolin HFA] 0 gm INH QID PRN inhaler 08/02/18 [Rx] Aspirin [Halfprin] 81 mg PO DAILY tab.ec 08/02/18 [Rx] Citalopram [Citalopram HBr] 20 mg PO DAILY tablet 08/02/18 [Rx] carvediloL [Coreg] 3.125 mg PO BIDMEALS tablet 08/02/18 [Rx] DULoxetine HCl [Duloxetine HCl] 30 mg PO BID 06/08/19 [History] Hydrocodone/Acetaminophen [Hydrocodon-Acetaminophen 5-325] 1 tab PO Q4HR [History] Lactobacillus Rhamnosus GG [Culturelle] 1 cap PO BID #60 cap 10/02/19 [Rx] ALPRAZolam [Alprazolam] 0.5 mg PO TID PRN 12/03/19 [History] Losartan Potassium 100 mg PO DAILY 12/03/19 [History] oxyCODONE HCl [Oxycodone HCl] 10 mg PO ASDIRECTED PRN 12/03/19 [History] Past Medical History HEENT History: Reports: Impaired Vision Cardiovascular History: Reports: CAD, High Cholesterol, Hypertension Other Cardiovascular History: 40% blockage per angio gram Respiratory History: Reports: Sleep Apnea Other Respiratory History: c-pap Gastrointestinal History: Reports: Cholelithiasis, Colon Polyp Musculoskeletal History: Reports: Arthritis, Other (See Below) Other Musculoskeletal History: DDD, herniated discs in back Psychiatric History: Reports: Anxiety, Depression Endocrine/Metabolic History: Reports: Obesity/BMI 30+ Hematologic History: Reports: Anemia, Iron Deficiency - Infectious Disease History Infectious Disease History: Reports: Chicken Pox, Mumps - Past Surgical History Head Surgeries/Procedures: Reports: None HEENT Surgical History: Reports: Tonsillectomy Cardiovascular Surgical History: Reports: Percutaneous Transluminal Angioplasty Respiratory Surgical History: Reports: None GI Surgical History: Reports: Appendectomy, Bariatric Procedure, Cholecystectomy , Colonoscopy, EGD, Esophageal Dilatation, Hernia Repair/Other Other GI Surgeries/Procedures: 2008 rny ulcer surgery January 10. rny REVISION JANUARY 2018 Endocrine Surgical History: Reports: None Musculoskeletal Surgical History: Reports: Carpal Tunnel, Shoulder Surgery Dermatological Surgical History: Reports: None Social & Family History - Family History Family Medical History: Noncontributory - Tobacco Use Smoking Status *Q: Never Smoker - Caffeine Use Caffeine Use: Reports: Coffee, Soda - Recreational Drug Use Recreational Drug Use: No ED ROS GENERAL - Review of Systems Review Of Systems: See Below Constitutional: Reports: Fever, Chills, Malaise HEENT: Reports: Rhinitis (clear) Respiratory: Reports: Shortness of Breath, Cough, Sputum. Denies: Wheezing, Pleuritic Chest Pain, Hemoptysis Cardiovascular: Reports: No Symptoms GI/Abdominal: Reports: No Symptoms : Reports: No Symptoms Musculoskeletal: Reports: No Symptoms Skin: Reports: No Symptoms Neurological: Reports: No Symptoms Psychiatric: Reports: No Symptoms ED EXAM, GENERAL - Physical Exam Exam: See Below Exam Limited By: No Limitations General Appearance: Alert, WD/WN, No Apparent Distress Eye Exam: Bilateral Eye: Normal Inspection Ears: Normal External Exam, Normal Canal, Hearing Grossly Normal, Normal TMs Ear Exam: Bilateral Ear: Auricle Normal, Canal Normal, TM normal Nose: Normal Inspection, No Blood Throat/Mouth: Normal Inspection, Normal Lips, Normal Oropharynx, Normal Voice, No Airway Compromise Head: Atraumatic, Normocephalic Neck: Normal Inspection Respiratory/Chest: No Respiratory Distress, Lungs Clear, Normal Breath Sounds, No Accessory Muscle Use Cardiovascular: Regular Rate, Rhythm, No Edema Back Exam: Normal Inspection Extremities: Normal Inspection, Normal Range of Motion, Non-Tender, No Pedal Edema Neurological: Alert, Oriented, CN II-XII Intact, Normal Cognition, No Motor/ Sensory Deficits Psychiatric: Normal Affect, Normal Mood Skin Exam: Warm, Dry, Intact, Normal Color, No Rash Course - Vital Signs Last Recorded V/S: Last Vital Signs Temp 38.8 C H 12/11/19 07:13 Pulse 126 H 12/11/19 07:13 Resp 24 H 12/11/19 07:13 BP 167/103 H 12/11/19 07:13 Pulse Ox 93 L 12/11/19 07:13 - Orders/Labs/Meds Labs: Laboratory Tests 12/11/19 Range/Units 07:39 WBC 10.1 (4.5-11.0) K/uL RBC 4.05 L (4.30-5.90) M/uL Hgb 11.4 L (12.0-15.0) g/dL Hct 37.7 L (40.0-54.0) % MCV 93 (80-98) fL MCH 28 (27-31) pg MCHC 30 L (32-36) % Plt Count 212 (150-400) K/uL Meds: Medications Discontinued Medications Generic Name Dose Route Start Last Admin Trade Name Freq PRN Reason Stop Dose Admin Acetaminophen 1,000 mg 12/11/19 07:21 12/11/19 07:26 Tylenol Extra Strength PO 12/11/19 07:22 1,000 mg ONETIME ONE Administration Departure - Departure Time of Disposition: 08:00 Disposition: Home, Self-Care 01 Condition: Fair Clinical Impression: Viral respiratory illness, Bronchitis - Discharge Information *PRESCRIPTION DRUG MONITORING PROGRAM REVIEWED*: Not Applicable *COPY OF PRESCRIPTION DRUG MONITORING REPORT IN PATIENT LUIS ENRIQUE: Not Applicable Instructions: Upper Respiratory Infection, Adult, [id number] Referrals: Glenn Enrique MD [Primary Care Provider] - Forms: ED Department Discharge Additional Instructions: Take azithromycin as directed until gone. Take acetaminophen up to 1000 mg every 6 hrs for fever control. Drink enough fluids so your urine is light yellow in color. Recheck if worse or not improving. Rest. Sepsis Event Note - Evaluation Sepsis Screening Result: Possible Sepsis Risk - Focused Exam Vital Signs: Vital Signs Temp Pulse Resp BP Pulse Ox 12/11/19 07:13 38.8 C H 126 H 24 H 167/103 H 93 L 12/11/19 07:11 38.8 C H 126 H 24 H 167/103 H 93 L Date Exam was Performed: 12/11/19 Time Exam was Performed: 07:55
== END 2019-12-11 08:11 | disposition home or self-care (01) ==
LOC: JP.ED 06:55
DX: J40 Bronchitis, not specified as acute or chronic (principal); B34.9 Viral infection, unspecified; I10 Essential (primary) hypertension; I25.10 Atherosclerotic heart disease of native coronary artery without angina pectoris; E78.00 Pure hypercholesterolemia, unspecified; M19.90 Unspecified osteoarthritis, unspecified site; F41.9 Anxiety disorder, unspecified; E66.9 Obesity, unspecified; Z68.35 Body mass index [BMI] 35.0-35.9, adult; Z79.899 Other long term (current) drug therapy; Z88.8 Allergy status to other drugs, medicaments and biological substances
CPT/HCPCS: 36415; 85027; 87804; 99284; A9270

== ENCOUNTER 2020-05-12 06:23 | Day surgery (SDC) | payer OTHER ==
[2020-05-12] MEDS ORDERED: Propofol 200 MG/20 ML SDV ONE (07:15)
[2020-05-12] MEDS ORDERED: Midazolam 1 MG/ML 2 ML SDV ONE (07:15)
[2020-05-12] MEDS ORDERED: fentaNYL 100 MCG/2 ML SDV ONE (07:15)
[2020-05-12] MEDS ORDERED: Dextrose 5%-Lactated Ringers 1,000 ML IV SCH (07:30)
[2020-05-12 10:10] VITALS: BP 112/83; PULSE 53
--- NOTE | 2020-05-16 14:12 | OR ---
DATE OF PROCEDURE: 05/12/2020 SURGEON: Breezy Alexander MD PREOPERATIVE DIAGNOSIS: History of frequent loose bowel movements with a large amount of oil noted in stool. POSTOPERATIVE DIAGNOSES: 1. History of frequent loose bowel movements with a large amount of oil noted in stool. 2. Esophagogastroduodenoscopy showing normal examination status post Arlen-en-Y gastric bypass. 3. Normal colonoscopy. PROCEDURES: 1. Esophagogastroduodenoscopy with gastric pouch biopsy for CLOtest ([id number]). 2. Flexible colonoscopy with: a. Collection of stool for microbiologic workup ([id number]). b. Random colorectal biopsies to rule out microscopic colitis ([id number]). ANESTHESIA: IV sedation. INDICATION FOR PROCEDURE: This is a 55-year-old status post Arlen-en-Y gastric bypass presenting with frequent loose bowel movements. On questioning, the patient notes a large amount of oil in the stools and some problem with oil leakage from the anal area at times. The plan is to proceed with an upper and lower endoscopy with biopsies as indicated. Potential risks including bleeding and perforation were discussed, and the patient wishes to proceed. DETAILS OF PROCEDURE: The patient was taken to the operating room and placed in a left lateral decubitus position. IV sedation was administered after which the upper GI endoscope was passed orally through the length of the esophagus into the gastric pouch and from there through the gastrojejunostomy roughly 20 cm into the Arlen limb. This examination was entirely normal. There were no areas of inflammation or stricturing. Biopsies were then obtained from the gastric pouch and sent for CLOtest for H. pylori. Minimal bleeding from the biopsy site was seen and the procedure then concluded. Attention was then taken to the colonoscopy. Initial digital rectal exam was performed, it was unremarkable. Colonoscope was then passed into the rectum with retroflexion revealing uncomplicated hemorrhoidal columns. Scope was then eventually passed to the cecum. The prep was fairly good with small amount of liquid stool present. It was evacuated and sent for microbiologic workup. Otherwise, there were no areas of colitis grossly evident and there were no diverticular disease and no polyps or other signs of neoplasia. Multiple random biopsies beginning in the cecum, spanning through the length of the colon, and downward including the rectum were made and carried out and no malignant biopsy sites were seen and the procedure then concluded. The patient's clinical presentation is quite suspicious for pancreatic exocrine insufficiency, which can be exacerbated with Arlen-en-Y gastric bypass status given the relatively short common limb, which both the gastric fluid and bile and the pancreatic secretions are mixed. Given this, we will start the patient on Creon 24,000 units t.i.d. with meals. We will see the patient back in 2 weeks for recheck. If the biopsies are otherwise normal and the Creon helps, we will simply continue that. If the biopsies show something like a microscopic colitis or some specific pathogens on the cultures, then we will re-refer the patient to Dr. Enrique at that time. Likewise, if the patient does not improve, but workup is otherwise negative, we would also send the patient back to Dr. Enrique. At that point, one might consider Gastroenterology evaluation as well. Breezy Alexander MD /[id number]
== END 2020-05-12 10:45 | disposition home or self-care (01) ==
LOC: JP.SDS 06:23
PROVIDERS: ATTEND Surgery
DX: K64.9 Unspecified hemorrhoids (principal); R19.4 Change in bowel habit; R19.5 Other fecal abnormalities; I10 Essential (primary) hypertension; K21.9 Gastro-esophageal reflux disease without esophagitis; Z88.8 Allergy status to other drugs, medicaments and biological substances; Z98.84 Bariatric surgery status
CPT/HCPCS: 43239; 45380; 87046; 87081; 87177; 87209; 87493; 87899; 89055; J2250; J2704; J3010; J7121; 88305

== ENCOUNTER 2020-05-16 09:30 | Emergency (ER) | payer OTHER ==
[2020-05-16 09:38] VITALS: BP 140/103; PULSE 73
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
[2020-05-16] MEDS ORDERED: Acetaminophen 500 MG Tab PO ONE (10:16)
--- NOTE | 2020-05-16 10:38 | CT ---
Head wo Cont, Cervical Spine wo Cont CLINICAL HISTORY: Head trauma COMPARISON: September 25, 2019 TECHNIQUE: Transverse scans were obtained from the base of the skull through the vertex without IV contrast on a multislice, multidetector CT scanner. Auto dosage reduction and iterative reconstruction techniques employed. FINDINGS: No focal abnormal parenchymal density is identified. There is no mass effect, hemorrhage, or extraaxial collection. The basal cisterns and sulci over the convexities are normal. The ventricles are normal for age. There is a moderate-sized falx calcification IMPRESSION: No acute intracranial process Cervical Spine wo Cont CLINICAL HISTORY: Trauma TECHNIQUE: Multiple CT sections were taken through the cervical spine in the transaxial projection. Coronal and sagittal views were reconstructed. Images were viewed at bone as well as soft tissue windows on a digital workstation. Auto dosage reduction and iterative reconstruction techniques employed. FINDINGS: Cervical vertebral body heights are maintained. There is diffuse disc space narrowing with moderate accompanying spondylosis. Alignment is maintained. Posterior elements appear intact. Axial images show disc osteophyte complex at C5-6 is also some uncovertebral joint spurring. This is also seen at the C6-7. There is moderate central canal stenosis and left neural foraminal encroachment. C7-T1 disc shows some concentric bulging. IMPRESSION: Diffuse degenerative disc disease with facet osteoarthropathy and uncovertebral joint spurring Moderate central canal stenosis at C6-7 with bilateral neural foraminal encroachment No fracture or dislocation
== END 2020-05-16 11:19 | disposition home or self-care (01) ==
LOC: JP.ED 09:30
DX: S06.0X0A Concussion without loss of consciousness, initial encounter (principal); I25.10 Atherosclerotic heart disease of native coronary artery without angina pectoris; I10 Essential (primary) hypertension; M19.90 Unspecified osteoarthritis, unspecified site; F41.9 Anxiety disorder, unspecified; F32.9 Major depressive disorder, single episode, unspecified; E66.9 Obesity, unspecified; Z68.34 Body mass index [BMI] 34.0-34.9, adult; Z88.8 Allergy status to other drugs, medicaments and biological substances; Z79.82 Long term (current) use of aspirin; Z79.899 Other long term (current) drug therapy; V43.52XA Car driver injured in collision with other type car in traffic accident, initial encounter; Y92.481 Parking lot as the place of occurrence of the external cause
CPT/HCPCS: 36415; 70450; 72125; 80053; 80305; 80307; 81001; 85027; 85610; 99285; A9270

== ENCOUNTER 2020-07-07 09:32 | Emergency (ER) | payer OTHER ==
[2020-07-07] MEDS ORDERED: Aspirin 81 MG Tab.Chew PO ONE (09:47)
--- NOTE | 2020-07-07 09:47 | EDM.PDOC ---
ED HPI GENERAL MEDICAL PROBLEM - General Chief Complaint: Chest Pain Stated Complaint: CHEST PAINS Time Seen by Provider: 07/07/20 09:46 Source of Information: Reports: Patient, Old Records History Limitations: Reports: No Limitations - History of Present Illness INITIAL COMMENTS - FREE TEXT/NARRATIVE: 55 yo male here with substernal CP 8/10 in severity. Has had this same pain in the past and was told it was GI related. Sx's began yesterday and he has not done anything about it. He has not taken any of this meds today. Has some nausea and vomited once to date. No blood in his emesis. No SOB or diaphoresis or calf pain. Exertion does make it worse. He is not a smoker. He states that he did have a heart cath in the past and was told he had a coronary vessel with a 65% blockage, but nothing was done about it at the time. Says he only ever taken his Coreg at night. Now says he's not felt well since late Saturday, but the chest pains began just yesterday. Onset: Gradual Onset Date: 07/06/20 Duration: Day(s): (1+), Waxing/Waning Location: Reports: Chest Quality: Reports: Pressure Severity: Moderate Improves with: Reports: Rest Worsens with: Reports: Movement (exertion) Context: Reports: Other (See HPI) Associated Symptoms: Reports: Chest Pain, Nausea/Vomiting. 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: Reports: Other (see below) (none) Chest Pain Score (Numeric/FACES): 7 - Related Data Allergies Allergy/AdvReac Type Severity Reaction Status Date / Time dexamethasone [From Decadron] Allergy Severe Difficulty Verified 12/04/19 08:31 Breathing gabapentin Allergy Depression Verified 12/04/19 08:31 NSAIDS (Non-Steroidal Allergy Bleeding Verified 05/10/20 09:31 Anti-Inflamma Home Meds: Home Meds Multivitamin with Minerals [Multiple Vitamin] 1 tab PO QAM 05/02/15 [History] Nitroglycerin 0.4 mg SL ASDIRECTED PRN 10/11/16 [History] Calcium Carbonate/Vitamin D3 [Calcium 600-Vit D3 500 Softgel] 1 tab PO QPM 11/25/17 [History] Pantoprazole Sodium [Protonix] 40 mg PO QPM 01/08/18 [History] Aspirin [Halfprin] 81 mg PO DAILY tab.ec 08/02/18 [Rx] carvediloL [Coreg] 3.125 mg PO BIDMEALS tablet 08/02/18 [Rx] Hydrocodone/Acetaminophen [Hydrocodon-Acetaminophen 5-325] 1 tab PO Q6H PRN 10/01/19 [History] ALPRAZolam [Alprazolam] 1 mg PO TID PRN 12/03/19 [History] Losartan Potassium 100 mg PO DAILY 12/03/19 [History] Acetaminophen [Tylenol] 650 mg PO Q6H PRN 05/10/20 [History] Citalopram [Citalopram HBr] 40 mg PO DAILY 05/10/20 [History] Ferrous Fumarate/Vitamin C [Vitron-C] 1 tab PO DAILY 05/10/20 [History] Mirtazapine 45 mg PO BEDTIME 05/10/20 [History] Amylase/Lipase/Protease [Shane CARREON 24,000 Unit] 24,000 unit OP TID 05/16/20 [History] Promethazine [Phenergan] 25 mg PO ASDIRECTED PRN 05/16/20 [History] Past Medical History HEENT History: Reports: Impaired Vision Cardiovascular History: Reports: CAD, High Cholesterol, Hypertension Other Cardiovascular History: 40% blockage per angio gram Respiratory History: Reports: Sleep Apnea Other Respiratory History: c-pap Gastrointestinal History: Reports: Cholelithiasis, Colon Polyp Musculoskeletal History: Reports: Arthritis, Back Pain, Chronic, Other (See Below) Other Musculoskeletal History: DDD, herniated discs in back Neurological History: Reports: Concussion Psychiatric History: Reports: Addiction, Anxiety, Depression Endocrine/Metabolic History: Reports: Obesity/BMI 30+ Hematologic History: Reports: Anemia, Iron Deficiency - Infectious Disease History Infectious Disease History: Reports: Chicken Pox, Mumps - Past Surgical History Head Surgeries/Procedures: Reports: None HEENT Surgical History: Reports: Tonsillectomy Cardiovascular Surgical History: Reports: Percutaneous Transluminal Angioplasty Respiratory Surgical History: Reports: None GI Surgical History: Reports: Appendectomy, Bariatric Procedure, Cholecystectomy, Colonoscopy, EGD, Esophageal Dilatation, Hernia Repair/Other Other GI Surgeries/Procedures: 2008 rny ulcer surgery January 10. rny REVISION JANUARY 2018 Endocrine Surgical History: Reports: None Neurological Surgical History: Reports: None Musculoskeletal Surgical History: Reports: Carpal Tunnel, Shoulder Surgery Dermatological Surgical History: Reports: None Social & Family History - Family History Family Medical History: Noncontributory - Tobacco Use Smoking Status *Q: Never Smoker - Caffeine Use Caffeine Use: Reports: Coffee - Recreational Drug Use Recreational Drug Use: No ED ROS GENERAL - Review of Systems Review Of Systems: See Below Constitutional: Reports: No Symptoms HEENT: Reports: No Symptoms Respiratory: Reports: No Symptoms. Denies: Shortness of Breath, Wheezing, Pleuritic Chest Pain, Cough, Hemoptysis Cardiovascular: Reports: Chest Pain. Denies: Dyspnea on Exertion, Palpitations Endocrine: Reports: No Symptoms GI/Abdominal: Reports: Nausea, Vomiting (x one). Denies: Hematemesis : Reports: No Symptoms Musculoskeletal: Reports: No Symptoms Skin: Reports: No Symptoms Neurological: Reports: No Symptoms Psychiatric: Reports: No Symptoms ED EXAM, GENERAL - Physical Exam Exam: See Below Exam Limited By: No Limitations General Appearance: Alert, WD/WN, No Apparent Distress Eye Exam: Bilateral Eye: Normal Inspection Ears: Normal External Exam, Normal Canal, Hearing Grossly Normal Ear Exam: Bilateral Ear: Auricle Normal, Canal Normal Nose: Normal Inspection, No Blood Throat/Mouth: Normal Inspection, Normal Lips, Normal Oropharynx, Normal Voice, No Airway Compromise Head: Atraumatic, Normocephalic Neck: Normal Inspection, Supple Respiratory/Chest: No Respiratory Distress, Lungs Clear, Normal Breath Sounds, No Accessory Muscle Use, Chest Non-Tender. No: Rales, Wheezing Cardiovascular: Regular Rate, Rhythm, No Edema, Tachycardia (mildly tachy) GI/Abdominal: Normal Bowel Sounds, Soft, Non-Tender, No Distention. No: Distended Extremities: Normal Inspection, Normal Range of Motion, Non-Tender, Pedal Edema (trace pitting edema to both LE's). No: No Pedal Edema Neurological: Alert, Oriented, CN II-XII Intact, Normal Cognition, No Motor/Sensory Deficits Psychiatric: Normal Affect, Normal Mood Skin Exam: Warm, Dry, Intact, Normal Color, No Rash EKG INTERPRETATION EKG Date: 07/07/20 Time: 09:35 Rhythm: NSR Rate (Beats/Min): 102 D Hanis: Normal P-Wave: Present QRS: RBBB ST-T: Normal QT: Normal Comparison: Change From Previous EKG (rate has increased from 56 to 102) Course - Vital Signs Text/Narrative:: Got significant relief with GI cocktail. Last Recorded V/S: Last Vital Signs Temp 37.1 C 07/07/20 09:37 Pulse 84 07/07/20 10:39 Resp 14 07/07/20 10:39 BP 153/113 H 07/07/20 10:39 Pulse Ox 88 L 07/07/20 10:39 - Orders/Labs/Meds Orders: Active Orders 24 hr Category Date Time Status Cardiac Monitoring [RC] .As Directed Care 07/07/20 09:44 Active EKG Documentation Completion [RC] ASDIRECTED Care 07/07/20 09:44 Active Chest 2V [CR] Stat Exams 07/07/20 10:40 Taken EKG 12 Lead [EK] Routine Ther 07/07/20 09:44 Ordered Labs: Laboratory Tests 07/07/20 07/07/20 07/07/20 Range/Units 09:47 09:48 09:48 WBC 8.3 (4.5-11.0) K/uL RBC 5.64 (4.30-5.90) M/uL Hgb 16.5 H D (12.0-15.0) g/dL Hct 51.2 (40.0-54.0) % MCV 91 (80-98) fL MCH 29 (27-31) pg MCHC 32 (32-36) % Plt Count 241 (150-400) K/uL D-Dimer, Quantitative 326 (0.0-400.0) ng/mL Sodium 138 L (140-148) mmol/L Potassium 4.2 (3.6-5.2) mmol/L Chloride 97 L (100-108) mmol/L Carbon Dioxide 23 (21-32) mmol/L Anion Gap 22.2 H (5.0-14.0) mmol/L BUN 17 (7-18) mg/dL Creatinine 1.2 (0.8-1.3) mg/dL Est Cr Clr Drug Dosing 77.68 mL/min Estimated GFR (MDRD) > 60 (>60) Glucose 124 H (74-106) mg/dL Calcium 8.8 (8.5-10.1) mg/dL Lactate Dehydrogenase (85-227) U/L Troponin I (0.000-0.056) ng/mL 07/07/20 07/07/20 Range/Units 09:48 10:40 WBC (4.5-11.0) K/uL RBC (4.30-5.90) M/uL Hgb (12.0-15.0) g/dL Hct (40.0-54.0) % MCV (80-98) fL MCH (27-31) pg MCHC (32-36) % Plt Count (150-400) K/uL D-Dimer, Quantitative (0.0-400.0) ng/mL Sodium (140-148) mmol/L Potassium (3.6-5.2) mmol/L Chloride (100-108) mmol/L Carbon Dioxide (21-32) mmol/L Anion Gap (5.0-14.0) mmol/L BUN (7-18) mg/dL Creatinine (0.8-1.3) mg/dL Est Cr Clr Drug Dosing mL/min Estimated GFR (MDRD) (>60) Glucose (74-106) mg/dL Calcium (8.5-10.1) mg/dL Lactate Dehydrogenase 375 H (85-227) U/L Troponin I < 0.017 (0.000-0.056) ng/mL Meds: Medications Discontinued Medications Generic Name Dose Route Start Last Admin Trade Name Freq PRN Reason Stop Dose Admin Acetaminophen 1,000 mg 07/07/20 10:21 07/07/20 10:26 Tylenol Extra Strength PO 07/07/20 10:22 1,000 mg ONETIME ONE Administration Aspirin 324 mg 07/07/20 09:47 07/07/20 09:58 Aspirin PO 07/07/20 09:48 324 mg ONETIME ONE Administration Carvedilol 3.125 mg 07/07/20 09:48 07/07/20 09:59 Coreg PO 07/07/20 09:49 3.125 mg ONETIME ONE Administration Al Hydroxide/Mg Hydroxide 15 0 ml 07/07/20 10:06 07/07/20 10:12 ml/ Lidocaine HCl 15 ml PO 07/07/20 10:07 15 ml ONETIME ONE Administration Ondansetron HCl 4 mg 07/07/20 09:55 07/07/20 10:00 Zofran Odt PO 07/07/20 09:56 4 mg ONETIME ONE Administration Pantoprazole Sodium 40 mg 07/07/20 10:28 07/07/20 10:32 Protonix PO 07/07/20 10:29 40 mg NOW STA Administration - Radiology Interpretation Free Text/Narrative:: CXR-neg Departure - Departure Time of Disposition: 11:20 Disposition: Home, Self-Care 01 Condition: Fair Clinical Impression: GERD (gastroesophageal reflux disease) Qualifiers: Esophagitis presence: with esophagitis Esophagitis bleeding: without hemorrhage Qualified Code(s): K21.00 - Gastro-esophageal reflux disease with esophagitis, without bleeding Instructions: Heartburn, [id number] Referrals: PCP,None [Primary Care Provider] - Forms: ED Department Discharge Additional Instructions: Continue your usual medications. Add Zofran as needed for nausea control. Take Gaviscon 30 ml after meals and bedtime as needed for heartburn symptoms. Consider getting the outpatient Covid testing through your provider's order(drive up testing). Return as needed. Sepsis Event Note (ED) - Evaluation Sepsis Screening Result: No Definite Risk - Focused Exam Vital Signs: Vital Signs Temp Pulse Pulse Resp BP BP Pulse Ox 07/07/20 10:39 84 14 153/113 H 88 L 07/07/20 09:59 95 165/106 H 07/07/20 09:37 37.1 C 102 H 18 165/106 H 94 L - My Orders Last 24 Hours: My Active Orders 07/07/20 09:44 Cardiac Monitoring [RC] .As Directed EKG Documentation Completion [RC] ASDIRECTED EKG 12 Lead [EK] Routine 07/07/20 10:40 Chest 2V [CR] Stat - Assessment/Plan Last 24 Hours: My Active Orders 07/07/20 09:44 Cardiac Monitoring [RC] .As Directed EKG Documentation Completion [RC] ASDIRECTED EKG 12 Lead [EK] Routine 07/07/20 10:40 Chest 2V [CR] Stat
[2020-07-07] MEDS ORDERED: Carvedilol 3.125 MG Tab PO ONE (09:48)
[2020-07-07] MEDS ORDERED: Ondansetron 4 MG Tab.DIS PO ONE (09:55)
[2020-07-07] MEDS ORDERED: Alum Hydrox/Mag Hydrox/Simeth 15 ML, Lidocaine 2% 15 ML PO ONE ×2 (10:06)
[2020-07-07] MEDS ORDERED: Acetaminophen 500 MG Tab PO ONE (10:21)
[2020-07-07] MEDS ORDERED: Pantoprazole 40 MG Tab.CR PO STA (10:28)
[2020-07-07 10:40] VITALS: BP 153/113; PULSE 84
--- NOTE | 2020-07-07 11:31 | CR ---
CHEST: 2 view CLINICAL HISTORY:Cough COMPARISON:12/04/2019 FINDINGS: The heart size, pulmonary vascularity and hilar structures are normal. No infiltrate effusion or pneumothorax is seen. There are small granulomata bilaterally. IMPRESSION: No acute cardiopulmonary process. Previous granulomatous exposure
== END 2020-07-07 11:27 | disposition home or self-care (01) ==
LOC: JP.ED 09:32
DX: K21.00 Gastro-esophageal reflux disease with esophagitis, without bleeding (principal); I25.10 Atherosclerotic heart disease of native coronary artery without angina pectoris; I10 Essential (primary) hypertension; M19.90 Unspecified osteoarthritis, unspecified site; F32.9 Major depressive disorder, single episode, unspecified; E66.9 Obesity, unspecified; Z68.45 Body mass index [BMI] 70 or greater, adult; Z88.8 Allergy status to other drugs, medicaments and biological substances; Z79.82 Long term (current) use of aspirin; Z79.899 Other long term (current) drug therapy
CPT/HCPCS: 36415; 71046; 80048; 83615; 84484; 85027; 85379; 93005; 99285; A9270; 93010; 99283

== ENCOUNTER 2020-07-17 21:28 | Emergency (ER) | payer OTHER ==
[2020-07-17 21:55] VITALS: BP 157/97; PULSE 66
[2020-07-17] MEDS ORDERED: Ketorolac 60 MG/2 ML SDV IM ONE (22:09)
--- NOTE | 2020-07-17 22:42 | EDM.PDOC ---
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 He does not remember the entire incident but felt he was probably fine but now it has been 2 days and he is lightheaded, dizzy, has pain in his right chest and right abdomen, and just feels like something may be wrong. His blood pressure was elevated which also worried him. No visual complaints, no nausea or vomiting, no shortness of breath, no diarrhea. No urinary symptoms. Is able to ambulate without problems although he feels "off" and unsteady. Reviewing his record shows he is already had 2 head CTs this year for falls or trauma, along with numerous other radiologic work-ups and medical visits to the emergency room. Onset: Sudden Duration: Day(s): (2 days ago) Location: Reports: Head, Chest, Abdomen Associated Symptoms: Reports: Chest Pain, Headaches (Mild headaches, mild dizziness), Malaise. Denies: Confusion, Shortness of Breath - Related Data Allergies Allergy/AdvReac Type Severity Reaction Status Date / Time dexamethasone [From Decadron] Allergy Severe Difficulty Verified 07/17/20 21:40 Breathing gabapentin Allergy Depression Verified 07/17/20 21:40 NSAIDS (Non-Steroidal Allergy Bleeding Verified 07/17/20 21:40 Anti-Inflamma Home Meds: Home Meds Multivitamin with Minerals [Multiple Vitamin] 1 tab PO QAM 05/02/15 [History] Nitroglycerin 0.4 mg SL ASDIRECTED PRN 10/11/16 [History] Calcium Carbonate/Vitamin D3 [Calcium 600-Vit D3 500 Softgel] 1 tab PO QPM 11/25/17 [History] Pantoprazole Sodium [Protonix] 40 mg PO QPM 01/08/18 [History] Aspirin [Halfprin] 81 mg PO DAILY tab.ec 08/02/18 [Rx] carvediloL [Coreg] 3.125 mg PO BIDMEALS tablet 08/02/18 [Rx] Hydrocodone/Acetaminophen [Hydrocodon-Acetaminophen 5-325] 1 tab PO Q6H PRN 10/01/19 [History] ALPRAZolam [Alprazolam] 1 mg PO TID PRN 12/03/19 [History] Losartan Potassium 100 mg PO DAILY 12/03/19 [History] Acetaminophen [Tylenol] 650 mg PO Q6H PRN 05/10/20 [History] Citalopram [Citalopram HBr] 40 mg PO DAILY 05/10/20 [History] Ferrous Fumarate/Vitamin C [Vitron-C] 1 tab PO DAILY 05/10/20 [History] Mirtazapine 45 mg PO BEDTIME 05/10/20 [History] Amylase/Lipase/Protease [Shane CARREON 24,000 Unit] 24,000 unit OP TID 05/16/20 [History] Promethazine [Phenergan] 25 mg PO ASDIRECTED PRN 05/16/20 [History] Ondansetron [Zofran ODT] 4 mg PO Q6H PRN #6 tab.dis 07/07/20 [Rx] Past Medical History HEENT History: Reports: Impaired Vision Cardiovascular History: Reports: CAD, High Cholesterol, Hypertension Other Cardiovascular History: 40% blockage per angio gram Respiratory History: Reports: Sleep Apnea Other Respiratory History: c-pap Gastrointestinal History: Reports: Cholelithiasis, Colon Polyp Musculoskeletal History: Reports: Arthritis, Back Pain, Chronic, Other (See Below) Other Musculoskeletal History: DDD, herniated discs in back Neurological History: Reports: Concussion Psychiatric History: Reports: Addiction, Anxiety, Depression Endocrine/Metabolic History: Reports: Obesity/BMI 30+ Hematologic History: Reports: Anemia, Iron Deficiency - Infectious Disease History Infectious Disease History: Reports: Chicken Pox, Mumps - Past Surgical History Head Surgeries/Procedures: Reports: None HEENT Surgical History: Reports: Tonsillectomy Cardiovascular Surgical History: Reports: Percutaneous Transluminal Angioplasty Respiratory Surgical History: Reports: None GI Surgical History: Reports: Appendectomy, Bariatric Procedure, Cholecystectomy, Colonoscopy, EGD, Esophageal Dilatation, Hernia Repair/Other Other GI Surgeries/Procedures: 2008 rny ulcer surgery January 10. rny REVISION JANUARY 2018 Endocrine Surgical History: Reports: None Neurological Surgical History: Reports: None Musculoskeletal Surgical History: Reports: Carpal Tunnel, Shoulder Surgery Dermatological Surgical History: Reports: None Social & Family History - Family History Family Medical History: Noncontributory - Tobacco Use Smoking Status *Q: Never Smoker - Caffeine Use Caffeine Use: Reports: Coffee ED ROS GENERAL - Review of Systems Review Of Systems: See Below Constitutional: Reports: Malaise. Denies: Fever, Chills HEENT: Denies: Vision Change Respiratory: Denies: Shortness of Breath Cardiovascular: Reports: Chest Pain (Right lateral chest pain) GI/Abdominal: Reports: Abdominal Pain (Right upper abdominal pain) Musculoskeletal: Denies: Neck Pain Neurological: Reports: Dizziness, Headache (Mild headache), Weakness ED EXAM, GENERAL - Physical Exam Exam: See Below Exam Limited By: No Limitations General Appearance: Alert, No Apparent Distress Eye Exam: Bilateral Eye: Normal Inspection Head: Other (Superficial abrasion on the left forehead, no other evidence of trauma) Neck: Non-Tender Respiratory/Chest: No Respiratory Distress, Lungs Clear Cardiovascular: Regular Rate, Rhythm GI/Abdominal: Soft, Other (Slight discomfort to palpation of the right upper quadrant but much more tender palpating the chest wall just above the abdomen) Extremities: Other (Superficial abrasion on the left extensor surface of the forearm, no bony tenderness) Neurological: Alert, Oriented, No Motor/Sensory Deficits Psychiatric: Normal Affect, Normal Mood Course - Vital Signs Last Recorded V/S: Last Vital Signs Temp 98.3 F 07/17/20 21:52 Pulse 66 07/17/20 21:52 Resp 14 07/17/20 21:52 BP 157/97 H 07/17/20 21:52 Pulse Ox 96 07/17/20 21:52 - Orders/Labs/Meds Meds: Medications Discontinued Medications Generic Name Dose Route Start Last Admin Trade Name Jeana PRN Reason Stop Dose Admin Ketorolac Tromethamine 60 mg 07/17/20 22:09 07/17/20 22:17 Toradol IM 07/17/20 22:10 60 mg ONETIME ONE Administration - Re-Assessments/Exams Free Text/Narrative Re-Assessment/Exam: 07/17/20 22:40 At bedside ultrasound of the abdomen showed no free fluid, normal liver and kidney anatomy. He did not seem to be tender to the pressure of the probe. Scan of the lung showed a normal slide sign and A lines of lung. Explained to the patient that it was unlikely we were going to find anything serious, but he felt he needed another head CT to rule out something significant and asked for something for pain. He was given 60 mg of IM Toradol and a CT of the head was ordered. 07/17/20 23:35 IMPRESSION: No acute intracranial abnormality. Departure - Departure Time of Disposition: 23:18 Disposition: Home, Self-Care 01 Clinical Impression: Concussion Qualifiers: Encounter type: initial encounter Loss of consciousness presence/duration: without LOC Qualified Code(s): S06.0X0A - Concussion without loss of consciousness, initial encounter Abdominal wall contusion Qualifiers: Encounter type: initial encounter Qualified Code(s): S30.1XXA - Contusion of abdominal wall, initial encounter - Discharge Information Instructions: Concussion, Adult, [id number], Contusion Referrals: Glenn Enrique MD [Primary Care Provider] - Forms: ED Department Discharge Care Plan Goals: Follow-up with Dr. Enrique if you are having persistent symptoms of dizziness or headache to consider an MRI or neurology consultation. Continue your regular medications and use hydrocodone for extra pain control and increase activity as tolerated. Sepsis Event Note (ED) - Evaluation Sepsis Screening Result: No Definite Risk - Focused Exam Vital Signs: Vital Signs Temp Pulse Resp BP Pulse Ox 07/17/20 21:52 98.3 F 66 14 157/97 H 96
--- NOTE | 2020-07-17 23:34 | CRLCT ---
INDICATION: fell and hit head 2 days ago TECHNIQUE: CT of the head without contrast. Coronal and sagittal reformats. Bone and soft tissue algorithms. COMPARISON: 05/16/2020. FINDINGS: No acute intracranial hemorrhage or extra-axial collection. No evidence of acute cortical infarction. No mass effect or midline shift. Mild generalized cerebral/cerebellar parenchymal volume loss. Mild regions of decreased attenuation within the periventricular and subcortical white matter of both cerebral hemispheres most likely reflects chronic microvascular ischemic disease and age related change in this patient. Vascular calcifications within the carotid siphons. Prominent triangular dural ossification along the anterior falx. Incidental hyperostosis frontalis internus. Orbital contents are normal. No calvarial fractures. No lytic or sclerotic osseous lesions within the calvarium or skull base. Scalp and other imaged soft tissue structures are normal. Mastoid air cells are clear. Focal hyperdensity in the left parieto-occipital scalp is unchanged. IMPRESSION: No acute intracranial abnormality. Please note that all CT scans at this facility use dose modulation, iterative reconstruction, and/or weight-based dosing when appropriate to reduce radiation dose to as low as reasonably achievable. Dictated by Chas Means MD @ Jul 17 2020 11:28PM Signed by Dr. Chas Means @ Jul 17 2020 11:32PM
== END 2020-07-17 23:17 | disposition home or self-care (01) ==
LOC: JP.ED 21:28
DX: S06.0X0A Concussion without loss of consciousness, initial encounter (principal); S30.1XXA Contusion of abdominal wall, initial encounter; S00.81XA Abrasion of other part of head, initial encounter; S50.812A Abrasion of left forearm, initial encounter; I25.10 Atherosclerotic heart disease of native coronary artery without angina pectoris; I10 Essential (primary) hypertension; M19.90 Unspecified osteoarthritis, unspecified site; F41.9 Anxiety disorder, unspecified; F32.9 Major depressive disorder, single episode, unspecified; D50.9 Iron deficiency anemia, unspecified; E66.9 Obesity, unspecified; Z68.32 Body mass index [BMI] 32.0-32.9, adult; Z79.899 Other long term (current) drug therapy; Z88.8 Allergy status to other drugs, medicaments and biological substances; Z88.6 Allergy status to analgesic agent; Z79.82 Long term (current) use of aspirin; W22.8XXA Striking against or struck by other objects, initial encounter; Y92.59 Other trade areas as the place of occurrence of the external cause
CPT/HCPCS: 70450; 96372; 99284; J1885

== ENCOUNTER 2020-08-12 13:18 | Emergency (ER) | payer OTHER ==
--- NOTE | 2020-08-12 14:09 | EDM.PDOC ---
ED HPI GENERAL MEDICAL PROBLEM - General Chief Complaint: General Stated Complaint: VIA [facility] Time Seen by Provider: 08/12/20 14:07 Source of Information: Reports: Patient History Limitations: Reports: No Limitations - History of Present Illness INITIAL COMMENTS - FREE TEXT/NARRATIVE: pt went to work today at the [email or web address] and had a sizure. He has no history of sizures in the past. He has been aheavy drinker in the past. He quit about 3 monthes ago. Onset: Sudden Duration: Hour(s): Location: Reports: Head, Other (pt did hit his head. ) Associated Symptoms: Reports: Other (pt is having some left sided chest pain. ) Headache Pain Score (Numeric/FACES): 8 Chest Pain Score (Numeric/FACES): 5 - Related Data Allergies Allergy/AdvReac Type Severity Reaction Status Date / Time dexamethasone [From Decadron] Allergy Severe Difficulty Verified 08/12/20 13:49 Breathing gabapentin Allergy Depression Verified 08/12/20 13:49 NSAIDS (Non-Steroidal Allergy Bleeding Verified 08/12/20 13:49 Anti-Inflamma Home Meds: Home Meds Multivitamin with Minerals [Multiple Vitamin] 1 tab PO QAM 05/02/15 [History] Nitroglycerin 0.4 mg SL ASDIRECTED PRN 10/11/16 [History] Calcium Carbonate/Vitamin D3 [Calcium 600-Vit D3 500 Softgel] 1 tab PO QPM 11/25/17 [History] Pantoprazole Sodium [Protonix] 40 mg PO QPM 01/08/18 [History] Aspirin [Halfprin] 81 mg PO DAILY tab.ec 08/02/18 [Rx] carvediloL [Coreg] 3.125 mg PO BIDMEALS tablet 08/02/18 [Rx] Hydrocodone/Acetaminophen [Hydrocodon-Acetaminophen 5-325] 1 tab PO Q6H PRN 10/01/19 [History] ALPRAZolam [Alprazolam] 1 mg PO TID PRN 12/03/19 [History] Losartan Potassium 100 mg PO DAILY 12/03/19 [History] Citalopram [Citalopram HBr] 40 mg PO DAILY 05/10/20 [History] Ferrous Fumarate/Vitamin C [Vitron-C] 1 tab PO DAILY 05/10/20 [History] Mirtazapine 45 mg PO BEDTIME 05/10/20 [History] Amylase/Lipase/Protease [Shane DR 24,000 Unit] 24,000 unit OP TID 05/16/20 [History] Promethazine [Phenergan] 25 mg PO ASDIRECTED PRN 05/16/20 [History] Ondansetron [Zofran ODT] 4 mg PO Q6H PRN #6 tab.dis 07/07/20 [Rx] Past Medical History HEENT History: Reports: Impaired Vision Cardiovascular History: Reports: CAD, High Cholesterol, Hypertension Other Cardiovascular History: 40% blockage per angio gram Respiratory History: Reports: Sleep Apnea Other Respiratory History: c-pap Gastrointestinal History: Reports: Cholelithiasis, Colon Polyp Musculoskeletal History: Reports: Arthritis, Back Pain, Chronic, Other (See Below) Other Musculoskeletal History: DDD, herniated discs in back Neurological History: Reports: Concussion Psychiatric History: Reports: Addiction, Anxiety, Depression Endocrine/Metabolic History: Reports: Obesity/BMI 30+ Hematologic History: Reports: Anemia, Iron Deficiency - Infectious Disease History Infectious Disease History: Reports: Chicken Pox, Influenza, Mumps - Past Surgical History Head Surgeries/Procedures: Reports: None HEENT Surgical History: Reports: Tonsillectomy Cardiovascular Surgical History: Reports: Percutaneous Transluminal Angioplasty Respiratory Surgical History: Reports: None GI Surgical History: Reports: Appendectomy, Bariatric Procedure, Cholecystectomy, Colonoscopy, EGD, Esophageal Dilatation, Hernia Repair/Other Other GI Surgeries/Procedures: 2008 rny ulcer surgery January 10. rny REVISION JANUARY 2018 Endocrine Surgical History: Reports: None Neurological Surgical History: Reports: None Musculoskeletal Surgical History: Reports: Carpal Tunnel, Shoulder Surgery Dermatological Surgical History: Reports: None Social & Family History - Family History Family Medical History: Noncontributory - Tobacco Use Tobacco Use Status *Q: Never Tobacco User - Caffeine Use Caffeine Use: Reports: Coffee - Recreational Drug Use Recreational Drug Use: No ED ROS GENERAL - Review of Systems Review Of Systems: See Below Constitutional: Reports: No Symptoms HEENT: Reports: No Symptoms Respiratory: Reports: No Symptoms Cardiovascular: Reports: Chest Pain Endocrine: Reports: No Symptoms GI/Abdominal: Reports: Other (pt has a history of elevatesd liver enzymes. ) : Reports: No Symptoms Musculoskeletal: Reports: No Symptoms, Muscle Stiffness ED EXAM, GENERAL - Physical Exam Exam: See Below Free Text/Narrative:: pt is working at the [email or web address] and she found himself on the floor. He doeesn,t know who witnessed the seizure. He was not lethargic on arrival here. He has had a previous drinking problem but he states he has not been drinking for the past 2 monthes. He has not had a previous seizure. Exam Limited By: No Limitations General Appearance: Alert, Anxious, Other (pt is complaing of a sig headache. pupils are equal and reactive. ) Ears: Normal TMs Nose: Normal Inspection Throat/Mouth: Normal Inspection Head: Atraumatic Neck: Normal Inspection Respiratory/Chest: No Respiratory Distress Cardiovascular: Regular Rate, Rhythm GI/Abdominal: Soft, Non-Tender (Male) Exam: Deferred Rectal (Males) Exam: Deferred Extremities: Normal Inspection Neurological: Alert, Oriented, Normal Cognition Psychiatric: Anxious Course - Vital Signs Last Recorded V/S: Last Vital Signs Temp 36.2 C 08/12/20 13:46 Pulse 78 08/12/20 16:06 Resp 12 08/12/20 16:06 BP 138/80 08/12/20 16:06 Pulse Ox 94 L 08/12/20 16:06 - Orders/Labs/Meds Orders: Active Orders 24 hr Category Date Time Status EKG Documentation Completion [RC] ASDIRECTED Care 08/12/20 14:06 Active EKG 12 Lead [EK] Routine Ther 08/12/20 14:06 Ordered Labs: Laboratory Tests 08/12/20 08/12/20 08/12/20 Range/Units 14:18 14:18 14:18 WBC 10.3 (4.5-11.0) K/uL RBC 4.77 (4.30-5.90) M/uL Hgb 14.1 D (12.0-15.0) g/dL Hct 44.7 (40.0-54.0) % MCV 94 (80-98) fL MCH 30 (27-31) pg MCHC 32 (32-36) % Plt Count 236 (150-400) K/uL Neut % (Auto) 87 H (36-66) % Lymph % (Auto) 7 L (24-44) % [place] % (Auto) 6 (2-6) % Eos % (Auto) 0 L (2-4) % Baso % (Auto) 0 (0-1) % Sodium 138 L (140-148) mmol/L Potassium 4.0 (3.6-5.2) mmol/L Chloride 101 (100-108) mmol/L Carbon Dioxide 25 (21-32) mmol/L Anion Gap 16.0 H (5.0-14.0) mmol/L BUN 14 (7-18) mg/dL Creatinine 1.3 (0.8-1.3) mg/dL Est Cr Clr Drug Dosing 71.71 mL/min Estimated GFR (MDRD) 57 L (>60) Glucose 131 H (74-106) mg/dL Calcium 8.7 (8.5-10.1) mg/dL Total Bilirubin 0.4 (0.2-1.0) mg/dL AST 58 H (15-37) U/L ALT 73 (12-78) U/L Alkaline Phosphatase 112 (46-116) U/L Troponin I < 0.017 (0.000-0.056) ng/mL Total Protein 7.4 (6.4-8.2) g/dL Albumin 3.9 (3.4-5.0) g/dL Globulin 3.5 (2.3-3.5) g/dL Albumin/Globulin Ratio 1.1 L (1.2-2.2) Urine Color (YELLOW) Urine Appearance (CLEAR) Urine pH (5.0-8.0) Ur Specific [place] (1.008-1.030) Urine Protein (NEGATIVE) mg/dL Urine Glucose (UA) (NEGATIVE) mg/dL Urine Ketones (NEGATIVE) mg/dL Urine Occult Blood (NEGATIVE) Urine Nitrite (NEGATIVE) Urine Bilirubin (NEGATIVE) Urine Urobilinogen (0.2-1.0) EU/dL Ur Leukocyte Esterase (NEGATIVE) Urine RBC (0-5) Urine WBC (0-5) Ur Epithelial Cells Urine Bacteria 08/12/20 Range/Units 14:31 WBC (4.5-11.0) K/uL RBC (4.30-5.90) M/uL Hgb (12.0-15.0) g/dL Hct (40.0-54.0) % MCV (80-98) fL MCH (27-31) pg MCHC (32-36) % Plt Count (150-400) K/uL Neut % (Auto) (36-66) % Lymph % (Auto) (24-44) % [place] % (Auto) (2-6) % Eos % (Auto) (2-4) % Baso % (Auto) (0-1) % Sodium (140-148) mmol/L Potassium (3.6-5.2) mmol/L Chloride (100-108) mmol/L Carbon Dioxide (21-32) mmol/L Anion Gap (5.0-14.0) mmol/L BUN (7-18) mg/dL Creatinine (0.8-1.3) mg/dL Est Cr Clr Drug Dosing mL/min Estimated GFR (MDRD) (>60) Glucose (74-106) mg/dL Calcium (8.5-10.1) mg/dL Total Bilirubin (0.2-1.0) mg/dL AST (15-37) U/L ALT (12-78) U/L Alkaline Phosphatase (46-116) U/L Troponin I (0.000-0.056) ng/mL Total Protein (6.4-8.2) g/dL Albumin (3.4-5.0) g/dL Globulin (2.3-3.5) g/dL Albumin/Globulin Ratio (1.2-2.2) Urine Color Yellow (YELLOW) Urine Appearance Clear (CLEAR) Urine pH 5.5 (5.0-8.0) Ur Specific [place] 1.025 (1.008-1.030) Urine Protein 100 H (NEGATIVE) mg/dL Urine Glucose (UA) Negative (NEGATIVE) mg/dL Urine Ketones Negative (NEGATIVE) mg/dL Urine Occult Blood Trace-intact H (NEGATIVE) Urine Nitrite Negative (NEGATIVE) Urine Bilirubin Negative (NEGATIVE) Urine Urobilinogen 0.2 (0.2-1.0) EU/dL Ur Leukocyte Esterase Negative (NEGATIVE) Urine RBC Not seen (0-5) Urine WBC Not seen (0-5) Ur Epithelial Cells Not seen Urine Bacteria Not seen Meds: Medications Discontinued Medications Generic Name Dose Route Start Last Admin Trade Name Freq PRN Reason Stop Dose Admin Hydrocodone Bitart/Acetaminophen 1 tab 08/12/20 16:04 [place] 325-5 Mg PO 08/12/20 16:05 ONETIME ONE - Re-Assessments/Exams Free Text/Narrative Re-Assessment/Exam: 08/12/20 16:38 cat scan of the head was neg. He appeared stable here. He has not had further symptoms other than a headache. Departure - Departure Time of Disposition: 16:39 Disposition: Home, Self-Care 01 Condition: Fair Clinical Impression: First time seizure, Contusion of head, Headache - Discharge Information Referrals: PCP,None [Primary Care Provider] - Forms: ED Department Discharge Care Plan Goals: appt with Dr Enrique Sat or saturday, low activity over the weekend, norco 5/325 q6h prn for headache #5. Pt may need a refwral to neurolgy. Sepsis Event Note (ED) - Evaluation Sepsis Screening Result: No Definite Risk - Focused Exam Vital Signs: Vital Signs Temp Pulse Resp BP Pulse Ox 08/12/20 16:06 78 12 138/80 94 L 08/12/20 13:46 36.2 C 98 16 149/92 H 93 L 08/12/20 13:36 36.2 C 98 16 149/92 H 93 L - My Orders Last 24 Hours: My Active Orders 08/12/20 14:06 EKG Documentation Completion [RC] ASDIRECTED EKG 12 Lead [EK] Routine - Assessment/Plan Last 24 Hours: My Active Orders 08/12/20 14:06 EKG Documentation Completion [RC] ASDIRECTED EKG 12 Lead [EK] Routine
--- NOTE | 2020-08-12 15:35 | CRLCT ---
INDICATION: Headache. Blow to head. TECHNIQUE: Scanning of the head was performed without IV contrast material. Coronal reconstructions were obtained. COMPARISON: Head CT of 07/17/2020. FINDINGS: No intracranial hemorrhage is demonstrated. No mass effect or ventricular enlargement is evident. No calvarial or obvious facial fracture is identified. The visualized paranasal and mastoid sinuses are clear. IMPRESSION: Negative noncontrast head CT. Please note that all CT scans at this facility use dose modulation, iterative reconstruction, and/or weight-based dosing when appropriate to reduce radiation dose to as low as reasonably achievable. Dictated by Arias Castellanos MD @ Aug 12 2020 3:29PM Signed by Dr. Arias Castellanos @ Aug 12 2020 3:34PM
[2020-08-12] MEDS ORDERED: Acetaminophen/HYDROcodone 325-5 MG Tab PO ONE (16:04)
[2020-08-12] MEDS ORDERED: HYDROmorphone 0.5 MG/0.5 ML Syringe IVPUSH ONE (16:37)
[2020-08-12 17:03] VITALS: BP 136/85; PULSE 81
== END 2020-08-12 17:15 | disposition home or self-care (01) ==
LOC: JP.ED 13:18
DX: S00.93XA Contusion of unspecified part of head, initial encounter (principal); R56.9 Unspecified convulsions; R07.9 Chest pain, unspecified; I10 Essential (primary) hypertension; I25.10 Atherosclerotic heart disease of native coronary artery without angina pectoris; F41.9 Anxiety disorder, unspecified; Z88.6 Allergy status to analgesic agent; Z88.8 Allergy status to other drugs, medicaments and biological substances; Z79.82 Long term (current) use of aspirin; Z79.899 Other long term (current) drug therapy; X58.XXXA Exposure to other specified factors, initial encounter; Y99.0 Civilian activity done for income or pay
CPT/HCPCS: 36415; 70450; 80053; 81001; 84484; 85025; 93005; 96374; 99285; A9270; J1170; 93010; 99283